=== PATIENT | male | born 1955 | race Hispanic/Latino ===

== ENCOUNTER 2016-12-08 20:17 | Inpatient (IN) | payer MEDICARE ==
[2016-12-08] MEDS ORDERED: NACL 0.9% 1000 ML 1,000 ML ONE (20:19)
[2016-12-08] MEDS ORDERED: NACL 0.9% 1000 ML 1,000 ML IV ONE (20:24)
--- NOTE | 2016-12-08 20:28 | Emergency Department Report ---
- General Stated complaint: LOW BLOOD PRESSURE Time Seen by Provider: 12/08/16 20:24 - History of Present Illness Initial comments: This is a 61-year-old gentleman who is coming from a skilled nursing house due to weakness/failure to thrive. EMS have limited history. They do indicate the patient has history of HIV. He is in a semi-controlled environment where his even assistance with medications and meals are provided. According to staff, the patient has not presented for [facility] for the past 2 days. The patient himself describes feeling not well. He denies fevers denies any specific pains. He states he feels very weak. There is a history of report of some type of psychiatric disorder as well with this gentleman. ED caveat for poor historian and difficulties obtaining history in general. - Related Data Home Medications Medication Instructions Recorded Confirmed Last Taken Abacavir Sulfate [Ziagen ORAL LIQ] 600 mg PO BID 12/08/16 12/08/16 12/08/16 Aspirin EC [Aspirin Enteric Coated 81 mg PO QDAY 12/08/16 12/08/16 12/08/16 TAB] Dapsone 100 mg PO DAILY 12/08/16 12/08/16 12/08/16 Darunavir Ethanolate [Prezista] 600 mg PO BID 12/08/16 12/08/16 12/08/16 Folic Acid [Folvite] 1 mg PO QDAY 12/08/16 12/08/16 12/08/16 Multivitamin Tab [Multiple Vitamin 1 each PO QDAY 12/08/16 12/08/16 12/08/16 TAB (Theragran)] Nevirapine [Viramune] 200 mg PO BID 12/08/16 12/08/16 12/08/16 Olanzapine [OLANZapine] 10 mg PO HS 12/08/16 12/08/16 12/08/16 Ritonavir [Norvir] 100 mg PO BID 12/08/16 12/08/16 12/08/16 Venlafaxine HCl [Venlafaxine HCl 150 mg PO DAILY 12/08/16 12/08/16 12/08/16 ER] hydrOXYZINE PAMOATE [hydrOXYzine 25 mg PO HS 12/08/16 12/08/16 12/08/16 Pamoate] Allergies Allergy/AdvReac Type Severity Reaction Status Date / Time No Known Allergies Allergy Unverified 12/08/16 21:24 ED Review of Systems ROS: Stated complaint: LOW BLOOD PRESSURE Other details as noted in HPI Comment: Unobtainable due to pts medical conditions Constitutional: weakness. denies: fever Respiratory: denies: cough, shortness of breath Cardiovascular: denies: chest pain Gastrointestinal: denies: abdominal pain, nausea, vomiting ED Past Medical Hx - Medications Home Medications: Home Medications Medication Instructions Recorded Confirmed Last Taken Type Abacavir Sulfate [Ziagen ORAL LIQ] 600 mg PO BID 12/08/16 12/08/16 12/08/16 History Aspirin EC [Aspirin Enteric Coated 81 mg PO QDAY 12/08/16 12/08/16 12/08/16 History TAB] Dapsone 100 mg PO DAILY 12/08/16 12/08/16 12/08/16 History Darunavir Ethanolate [Prezista] 600 mg PO BID 12/08/16 12/08/16 12/08/16 History Folic Acid [Folvite] 1 mg PO QDAY 12/08/16 12/08/16 12/08/16 History Multivitamin Tab [Multiple Vitamin 1 each PO QDAY 12/08/16 12/08/16 12/08/16 History TAB (Theragran)] Nevirapine [Viramune] 200 mg PO BID 12/08/16 12/08/16 12/08/16 History Olanzapine [OLANZapine] 10 mg PO HS 12/08/16 12/08/16 12/08/16 History Ritonavir [Norvir] 100 mg PO BID 12/08/16 12/08/16 12/08/16 History Venlafaxine HCl [Venlafaxine HCl 150 mg PO DAILY 12/08/16 12/08/16 12/08/16 History ER] hydrOXYZINE PAMOATE [hydrOXYzine 25 mg PO HS 12/08/16 12/08/16 12/08/16 History Pamoate] ED Physical Exam - General General appearance: other (very frail and cachectic appearing. He does look around and give very soft answers to some questions. Others he just accidentally does not understand the question.) - Head Head exam: Present: atraumatic, normocephalic - Eye Eye exam: Present: EOMI, other. Absent: scleral icterus (2 mm pupils equal bilaterally minimally reactive. Sunken eyes and general. No scleral icterus noted.) - ENT ENT exam: Present: mucous membranes dry, other (no posterior pharyngeal lesions appreciated. No other oral lesions noted.) - Neck Neck exam: Present: normal inspection. Absent: tenderness, meningismus, lymphadenopathy - Respiratory Respiratory exam: Present: normal lung sounds bilaterally. Absent: wheezes, rales, rhonchi - Cardiovascular Cardiovascular Exam: Present: regular rate, normal rhythm. Absent: tachycardia - GI/Abdominal GI/Abdominal exam: Present: soft. Absent: tenderness, guarding - Extremities Exam Extremities exam: Present: other (palpable bilateral radial pulses and distal pedal pulses. They are somewhat thready.). Absent: tenderness, pedal edema - Back Exam Back exam: Absent: tenderness, CVA tenderness (R), CVA tenderness (L) - Neurological Exam Neurological exam: Present: other (patient does move all 4 extremities spontaneously. He does turn his head he does respond to some questions. His answers are very brief. He does appear to have some decreased alertness though he is awake and looking around.) - Psychiatric Psychiatric exam: Present: other (very flat. Difficult to assess in general due to minimal verbal response) - Skin Skin exam: Present: warm, dry, intact. Absent: rash ED Course Vital Signs 12/08/16 12/08/16 12/08/16 20:16 20:26 20:30 Temperature 97.9 F Pulse Rate 70 68 Respiratory 26 H 16 19 Rate Blood Pressure 72/40 68/35 O2 Sat by Pulse 100 100 Oximetry 12/08/16 12/08/16 12/08/16 20:45 21:01 21:15 Temperature Pulse Rate 66 64 Respiratory 17 26 H 11 L Rate Blood Pressure 81/30 81/30 86/51 O2 Sat by Pulse 99 92 Oximetry 12/08/16 12/08/16 12/08/16 21:27 21:30 21:45 Temperature 89.1 F L Pulse Rate 65 65 Respiratory 16 17 Rate Blood Pressure 92/52 88/48 O2 Sat by Pulse Oximetry 12/08/16 12/08/16 12/08/16 22:00 22:15 22:30 Temperature Pulse Rate 65 67 67 Respiratory 17 12 15 Rate Blood Pressure 97/47 94/51 98/54 O2 Sat by Pulse Oximetry 12/08/16 12/08/16 12/08/16 22:45 23:00 23:15 Temperature 89.8 F L Pulse Rate 68 73 74 Respiratory 15 14 14 Rate Blood Pressure 81/51 90/59 94/58 O2 Sat by Pulse Oximetry 12/08/16 23:30 Temperature Pulse Rate 76 Respiratory 15 Rate Blood Pressure 97/58 O2 Sat by Pulse Oximetry - Reevaluation(s) Reevaluation #1: 12/08/16 20:33 ECG in 2020 with sinus rhythm at 65 bpm with a normal DC. QRS is slightly prolonged 106 ms. There is cyanosis specific ST changes noted and rather diffuse fashion fashion. These are slight change from prior ECG from 2010. Not consistent with STEMI. Reevaluation #2: 12/09/16 01:09 Patient was given a total of 3 L normal saline. His pressure did improve somewhat with this with her range of 90s over 50. He continued to be normal heart rate throughout his time here. He was noted to be hypothermic. He did have a bear hugger placed on him. Decision was made to place central line please see procedure note. This was done for concern for possible need for pressors. Ultimately I did not start him on pressors however. Chest x-ray was noted to be negative. Urinalysis did demonstrate significant infection. In addition patient was noted to have significant renal failure with uremia as well. He is noted to have a very low COU which I suspect is consistent with uremia. His lactate is not that impressive. White blood cell count was noted to be quite elevated. Patient is again presenting consistent with septic shock. I am hopeful that being on antibiotics and judicious hydration will get the kidneys working again and the patient will then be able to diurese well and retained kidney function. I did speak with the hospitalist regarding admission. In addition to speak with the range examiner. Nephrology did suggest they give the patient bicarbonate here 2 A and then placed on bicarbonate drip. This has been ordered. The mentation standpoint, the patient has had increased and improved mentation during his time here. He subjectively reports feeling much improved as he's been warmed up as well as receiving IV fluids. He is appropriate in his comments in general. He is still somewhat of a poor historian regarding his healthcare but it does appear that he has been very compliant with the medications that have been prescribed to him. Reevaluation #3: 12/09/16 01:13 NB: Hemoglobin level was noted to be somewhat lonely 0.9. I am concerned with all the fluid hydration at the patient's hemoglobin is drop significantly with dilution. Will follow. - Central Line Placement Right IJ Consent Obtained: verbal consent Time Out Performed: Yes Patient Placed on Monitor/Pulse Ox: Yes Prep: mask, gown, gloves Central Line Prep: Chlorhexidine scrub Local Anesthesia Used: Lidocaine 1% Amount of Anesthesia Used (mls): 3 Ultrasound Used for Placement: Yes Central Line Lumen Inserted: triple Bloods Obtained for Lab: No Central Line Position: good blood return, all ports aspirated, flus, sutured in place with 2-0 Dressing Applied: Tegaderm Post Procedure X-Ray: tip of catheter in good p Patient Tolerated Procedure: well Complications: none ED Medical Decision Making - Lab Data Result diagrams: 12/08/16 20:51 12/08/16 23:04 - Radiology Data interpreted by me: Chest x-ray with hyperinflation but otherwise negative for acute pathology. Critical Care Time: Yes Critical care time in (mins) excluding proc time.: 35 Critical care attestation.: If time is entered above; I have spent that time in minutes in the direct care of this critically ill patient, excluding procedure time. ED Disposition Clinical Impression: Septic shock, Azotemia, Dehydration, Adult failure to thrive, Renal failure, Hypernatremia UTI (urinary tract infection) Qualifiers: Urinary tract infection type: acute cystitis Hematuria presence: without hematuria Qualified Code(s): N30.00 - Acute cystitis without hematuria Disposition: OP ADMITTED IP TO THIS HOSP Is pt being admited?: Yes Does the pt Need Aspirin: No Condition: Stable Time of Disposition: 21:53
[2016-12-08 20:59] LABS: Basophils % (Auto) 0.1 % (0.0-1.8); Hemoglobin 8.9 gm/dl (11.8-15.2); Mean Corpuscular HGB Conc 31 % (32-34); Mean Corpuscular Hemoglobin 31 pg (28-32); Mean Corpuscular Volume 100 fl (84-94); Platelet Count 194 K/mm3 (140-440); Red Blood Count 2.91 M/mm3 (3.65-5.03); Red Cell Distribution Width 17.7 % (13.2-15.2); White Blood Count 17.3 K/mm3 (4.5-11.0)
[2016-12-08] MEDS ORDERED: ROCEPHIN/NS 1 GM/50 ML 1 GM/50 ML BAG IV ONE (21:16)
[2016-12-08 21:25] LABS: Albumin 3.2 g/dL (3.9-5); Albumin/Globulin Ratio 1.1 %; Calcium 7.4 mg/dL (8.4-10.2); Chloride 126.2 mmol/L (98-107); Glucose 107 mg/dL (75-100); Potassium 5.2 mmol/L (3.6-5.0); Sodium 158 mmol/L (137-145); Total Protein 6.2 g/dL (6.3-8.2)
[2016-12-08] MEDS ORDERED: ROCEPHIN 1,000 MG in NACL 0.9% 50 ML IV ONE (21:28)
[2016-12-08 21:30] LABS: Anion Gap 31 mmol/L
[2016-12-08 21:37] LABS: Bacteria,Urine 4+ /HPF (Negative); Mucus,Urine 3+ /HPF
[2016-12-08 21:43] LABS: Bilirubin,Urine Negative (Negative); Blood,Urine Large (Negative); Ketones,Urine Negative (Negative); Leukocyte Esterase,Urine Large (Negative); Nitrite,Urine Positive (Negative); Protein,Urine >500 mg/dL (Negative); RBC,Urine > 182.0 /HPF (0.0-6.0); Urobilinogen,Urine < 2.0 mg/dL (<2.0); WBC,Urine > 182.0 /HPF (0.0-6.0)
[2016-12-08 21:48] LABS: Alanine Aminotransferase < 5 units/L (7-56); BUN/Creatinine Ratio 18.44; Blood Urea Nitrogen 190 mg/dL (9-20); Carbon Dioxide 6 mmol/L (22-30)
[2016-12-08] MEDS ORDERED: ROCEPHIN 1,000 MG in NACL 0.9% 50 ML IV NR (22:00)
[2016-12-08] MEDS ORDERED: SODIUM BICARBONATE IV ONE ×2 (22:04→22:07)
[2016-12-08 22:17] LABS: Alkaline Phosphatase 120 units/L (35-129)
[2016-12-08] MEDS ORDERED: TYLENOL PO PRN (22:31)
--- NOTE | 2016-12-08 22:35 | History and Physical Report ---
History of Present Illness Date of examination: 12/08/16 History of present illness: 61 year old man with history of HIV, psych problems per EMS report was brought to the emergency room because he had not eaten in 2 days. the patient is unable to give a history. PAST SURGICAL HISTORY: Unknown SOCIAL HISTORY:Smokes, unknown alcohol or drugs FAMILY HISTORY: Unknown Medications and Allergies Allergies Allergy/AdvReac Type Severity Reaction Status Date / Time No Known Allergies Allergy Unverified 12/08/16 21:24 Home Medications Medication Instructions Recorded Confirmed Last Taken Type Abacavir Sulfate [Ziagen ORAL LIQ] 600 mg PO BID 12/08/16 12/08/16 12/08/16 History Aspirin EC [Aspirin Enteric Coated 81 mg PO QDAY 12/08/16 12/08/16 12/08/16 History TAB] Dapsone 100 mg PO DAILY 12/08/16 12/08/16 12/08/16 History Darunavir Ethanolate [Prezista] 600 mg PO BID 12/08/16 12/08/16 12/08/16 History Folic Acid [Folvite] 1 mg PO QDAY 12/08/16 12/08/16 12/08/16 History Multivitamin Tab [Multiple Vitamin 1 each PO QDAY 12/08/16 12/08/16 12/08/16 History TAB (Theragran)] Nevirapine [Viramune] 200 mg PO BID 12/08/16 12/08/16 12/08/16 History Olanzapine [OLANZapine] 10 mg PO HS 12/08/16 12/08/16 12/08/16 History Ritonavir [Norvir] 100 mg PO BID 12/08/16 12/08/16 12/08/16 History Venlafaxine HCl [Venlafaxine HCl 150 mg PO DAILY 12/08/16 12/08/16 12/08/16 History ER] hydrOXYZINE PAMOATE [hydrOXYzine 25 mg PO HS 12/08/16 12/08/16 12/08/16 History Pamoate] Active Meds: Active Medications Sodium Bicarbonate 150 meq/ (Sterile Water) 1,150 mls @ 150 mls/hr IV DIRECT JOSE Stop: 12/09/16 06:39 Exam - Physical Exam Narrative exam: Gen. appearance: Patient lying in bed, no apparent distress HEENT: Normocephalic, atraumatic, pupils equally round and reactive to light, extraocular movement intact, and no sclericterus,. No JVD or thyromegaly or nodule,neck supple, no carotid bruit ,mucous membranes very dry, no exudate or erythema Heart: S1, S2, regular rate and rhythm Lungs: Clear to auscultation bilaterally, breathing comfortable Abdomen: Positive bowel sounds, nontender, nondistended, no organomegaly Extremity: No edema, cyanosis, clubbing Skin: No rash, nodules, warm, dry Neuro: lethargic, moves all four extremities - Constitutional Vitals: Temp Pulse Resp BP Pulse Ox 89.1 F L 64 11 L 86/51 92 12/08/16 21:27 12/08/16 21:15 12/08/16 21:15 12/08/16 21:15 12/08/16 21:01 Results - Labs CBC & Chem 7: 12/08/16 20:51 12/08/16 23:04 Labs: Abnormal lab results 12/08/16 12/08/16 12/08/16 Range/Units 20:51 20:51 20:51 WBC 17.3 H (4.5-11.0) K/mm3 RBC 2.91 L (3.65-5.03) M/mm3 Hgb 8.9 L (11.8-15.2) gm/dl Hct 29.0 L (35.5-45.6) % MCV 100 H (84-94) fl MCHC 31 L (32-34) % RDW 17.7 H (13.2-15.2) % Lymph % (Auto) 7.6 L (13.4-35.0) % Seg Neutrophils % 88.1 H (40.0-70.0) % Seg Neutrophils # 15.3 H (1.8-7.7) K/mm3 Sodium 158 H (137-145) mmol/L Potassium 5.2 H (3.6-5.0) mmol/L Chloride 126.2 H (98-107) mmol/L Carbon Dioxide 6 L* (22-30) mmol/L BUN 190 H (9-20) mg/dL Creatinine 10.3 H (0.8-1.5) mg/dL Glucose 107 H (75-100) mg/dL Calcium 7.4 L (8.4-10.2) mg/dL Magnesium 2.70 H (1.7-2.3) mg/dL ALT < 5 L (7-56) units/L Total Protein 6.2 L (6.3-8.2) g/dL Albumin 3.2 L (3.9-5) g/dL Urine pH (5.0-7.0) Urine Blood (Negative) Urine WBC (Auto) (0.0-6.0) /HPF U Epithel Cells (Auto) (0-13.0) /HPF /02/17 Range/Units 21:12 WBC (4.5-11.0) K/mm3 RBC (3.65-5.03) M/mm3 Hgb (11.8-15.2) gm/dl Hct (35.5-45.6) % MCV (84-94) fl MCHC (32-34) % RDW (13.2-15.2) % Lymph % (Auto) (13.4-35.0) % Seg Neutrophils % (40.0-70.0) % Seg Neutrophils # (1.8-7.7) K/mm3 Sodium (137-145) mmol/L Potassium (3.6-5.0) mmol/L Chloride (98-107) mmol/L Carbon Dioxide (22-30) mmol/L BUN (9-20) mg/dL Creatinine (0.8-1.5) mg/dL Glucose (75-100) mg/dL Calcium (8.4-10.2) mg/dL Magnesium (1.7-2.3) mg/dL ALT (7-56) units/L Total Protein (6.3-8.2) g/dL Albumin (3.9-5) g/dL Urine pH 8.0 H (5.0-7.0) Urine Blood Large A (Negative) Urine WBC (Auto) > 182.0 H (0.0-6.0) /HPF U Epithel Cells (Auto) 14.0 H (0-13.0) /HPF - Imaging and Cardiology EKG: image reviewed Chest x-ray: image reviewed Assessment and Plan Septic shock UTI Acute renal failure Hyponatremia Metabolic acidosis Hyperkalemia Underlying psychiatric problem HIV Admit to medicine Start IV fluid, IV Zosyn, follow blood culture and urine culture Obtain CAT scan of the head, abdomen and pelvis, consult renal Monitor sodium level, consult critical care Continue bicarbonate drip Start DVT prophylaxis
[2016-12-08] MEDS ORDERED: SODIUM BICARBONATE 150 MEQ in STERILE WATER 1,000 ML IV SCH (23:00)
[2016-12-08] MEDS ORDERED: NACL 0.45% 1000 ML 1,000 ML IV SCH (23:00)
[2016-12-08] MEDS ORDERED: NACL 0.9% 1000 ML 1,000 ML IV SCH (23:00)
[2016-12-08 23:35] LABS: Creatine Kinase MB 9.4 ng/mL (0.0-4.0)
[2016-12-08 23:40] LABS: Calcium 7.3 mg/dL (8.4-10.2); Chloride 125.5 mmol/L (98-107); Potassium 5.1 mmol/L (3.6-5.0)
[2016-12-08 23:50] LABS: BUN/Creatinine Ratio 18.76
[2016-12-09] MEDS ORDERED: NACL 0.45% 1000 ML 500 ML IV SCH (00:06)
--- NOTE | 2016-12-09 00:25 | Cat Scan Report ---
FINAL REPORT PROCEDURE: CT HEAD/BRAIN WO CON TECHNIQUE: Computerized tomography of the head was performed without contrast material. HISTORY: lethargy COMPARISON: No prior studies are available for comparison. FINDINGS: Skull and scalp: Normal. Paranasal sinuses: Minimal opacification of the ethmoid sinuses. Ventricles and subarachnoid spaces: Normal. Cerebrum: No evidence of hemorrhage, acute infarction or mass. Periventricular deep white matter change identified in the right upper parietal deep white matter. Mild atrophy.. Cerebellum and brainstem: No evidence of hemorrhage, acute infarction or mass. Vasculature: Normal. Comments: None. IMPRESSION: There is no evidence of an acute intracranial process. Minimal atrophy and minimal periventricular deep white matter changes noted.
--- NOTE | 2016-12-09 00:33 | Cat Scan Report ---
FINAL REPORT PROCEDURE: CT ABDOMEN PELVIS WO CON TECHNIQUE: Computerized axial tomography of the abdomen and pelvis was performed without intravenous contrast. This study is performed without intravascular contrast material and its sensitivity for abdominal and pelvic pathology, including neoplasms, inflammation, abscess, free fluid, thrombosis, arterial dissection and infarction, is reduced compared with a contrast enhanced study. HISTORY: arf COMPARISON: No prior studies are available for comparison. FINDINGS: Visualized lower thorax: No significant abnormality. Liver: Normal size and attenuation. Spleen: Normal size and attenuation. Gallbladder and biliary system: Normal. Pancreas: Normal. Adrenals: Normal. Kidneys: The left kidney is atrophic. No hydronephrosis is seen. There are numerous small areas of hypoattenuation identified in the renal cortex, small cysts are suspected. This is not fully evaluated on this noncontrast study. There are few small 1 millimeter calcifications in the lateral right renal cortex. Further evaluation with ultrasound may be appropriate. A contrasted CT exam would also be of benefit.. GI tract: The stomach is normal. The small bowel has a normal caliber. No obstruction, ileus or enteritis. The cecum, appendix region and colon are normal. Moderate fecal debris throughout the colon including the rectum.. Lymph nodes and mesentery: Normal. Vasculature: Normal. Bladder: There is a Elaine catheter within the urinary bladder.. Reproductive organs: Normal. Peritoneum: No free fluid. Musculoskeletal structures: No evidence of an acute fracture. There is a cystic region of the lateral right iliac bone just above the right acetabulum.. Other: None. IMPRESSION: Atrophic left kidney. Multiple small areas of hypoattenuation identified throughout the renal cortex bilaterally, multiple cysts are suspected. There are few small 1 millimeter calcifications in the lateral right renal cortex. This is not fully evaluated on this study. Further evaluation with ultrasound would be of benefit. A contrast enhanced CT would also be of benefit. No evidence of intestinal obstruction. Moderate fecal debris throughout the colon. There is a Elaine catheter within the urinary bladder..
[2016-12-09] MEDS: D5/0.45NS 1,000 ML IV SCH ×2 (00:46→08:08)
[2016-12-09] MEDS: ZOSYN/NS 2.25 GM/50ML 2.25 GM/50 ML BAG IV SCH ×4 (01:38→23:23)
[2016-12-09 05:07] LABS: Fractional Sodium Excretion 65.4
[2016-12-09 06:33] LABS: Basophils % (Auto) 0.2 % (0.0-1.8); Eosinophils % (Auto) 0.3 % (0.0-4.3); Hemoglobin 7.1 gm/dl (11.8-15.2); Mean Corpuscular HGB Conc 34 % (32-34); Mean Corpuscular Hemoglobin 32 pg (28-32); Platelet Count 149 K/mm3 (140-440); Red Blood Count 2.24 M/mm3 (3.65-5.03); Red Cell Distribution Width 16.1 % (13.2-15.2); White Blood Count 10.7 K/mm3 (4.5-11.0)
[2016-12-09 06:35] LABS: Calcium 6.1 mg/dL (8.4-10.2); Chloride 120.8 mmol/L (98-107); Potassium 3.6 mmol/L (3.6-5.0)
[2016-12-09 06:37] LABS: Creatine Kinase MB 9.7 ng/mL (0.0-4.0)
[2016-12-09 06:45] LABS: BUN/Creatinine Ratio 19.65
[2016-12-09 06:55] LABS: Mean Corpuscular Volume 95 fl (84-94)
[2016-12-09 06:56] LABS: Hematocrit 23.9 % (35.5-45.6)
--- NOTE | 2016-12-09 08:17 | XRay Report ---
AP CHEST: 12/08/16 21:37 CLINICAL: Central line insertion. COMPARISON: 20:55 FINDINGS: Since the prior exam, a right IJ catheter has been inserted and the catheter tip is in the distal SVC. The lungs are normally expanded and relatively clear.No pneumothorax. Normal heart and pulmonary vessels. IMPRESSION: Satisfactory line placement. No pneumothorax.
--- NOTE | 2016-12-09 08:18 | XRay Report ---
AP CHEST :12/08/16 20:17:00 CLINICAL: Difficulty breathing. COMPARISON:06/15/11 FINDINGS: Normal heart and pulmonary vasculature. The lungs are normally expanded and clear. The bones and soft tissues are normal. IMPRESSION: Normal.
--- NOTE | 2016-12-09 09:19 | Consultation ---
History of Present Illness - Reason for Consult Consult date: 12/09/16 acute renal failure - History of Present Illness Patient is a poor historian. Mr. Funez is a 61yo with HIV who presents to the ED with generalized malaise and nausea ongoing for 1-2 weeks. Per records, he was brought to the ED due to poor po intake for 3 days. Mr. Funez denies vomiting, diarrhea, dysuria, SOB. He denies pain. Past History Past Medical History: HIV/AIDS Family history: no significant family history Medications and Allergies Allergies Allergy/AdvReac Type Severity Reaction Status Date / Time No Known Allergies Allergy Unverified 12/08/16 21:24 Home Medications Medication Instructions Recorded Confirmed Last Taken Type Abacavir Sulfate [Ziagen ORAL LIQ] 600 mg PO BID 12/08/16 12/08/16 12/08/16 History Aspirin EC [Aspirin Enteric Coated 81 mg PO QDAY 12/08/16 12/08/16 12/08/16 History TAB] Dapsone 100 mg PO DAILY 12/08/16 12/08/16 12/08/16 History Darunavir Ethanolate [Prezista] 600 mg PO BID 12/08/16 12/08/16 12/08/16 History Folic Acid [Folvite] 1 mg PO QDAY 12/08/16 12/08/16 12/08/16 History Multivitamin Tab [Multiple Vitamin 1 each PO QDAY 12/08/16 12/08/16 12/08/16 History TAB (Theragran)] Nevirapine [Viramune] 200 mg PO BID 12/08/16 12/08/16 12/08/16 History Olanzapine [OLANZapine] 10 mg PO HS 12/08/16 12/08/16 12/08/16 History Ritonavir [Norvir] 100 mg PO BID 12/08/16 12/08/16 12/08/16 History Venlafaxine HCl [Venlafaxine HCl 150 mg PO DAILY 12/08/16 12/08/16 12/08/16 History ER] hydrOXYZINE PAMOATE [hydrOXYzine 25 mg PO HS 12/08/16 12/08/16 12/08/16 History Pamoate] Active Meds: Active Medications Acetaminophen (Tylenol) 650 mg PO Q4H PRN PRN Reason: Pain MILD(1-3)/Fever >100.5/LUDWIG Enoxaparin Sodium (Lovenox) 30 mg SUB-Q QDAY JOSE Piperacillin Sod/Tazobactam Sod (Zosyn/Ns 2.25 Gm/50ml) 2.25 gm in 50 mls @ 100 mls/hr IV Q8H JOSE PRN Reason: Protocol Last Admin: 12/09/16 08:11 Dose: 100 mls/hr Dextrose/Sodium Chloride (D5ns 0.2%) 1,000 mls @ 75 mls/hr IV DIRECT JOSE Ondansetron HCl (Zofran) 4 mg IV Q4H PRN PRN Reason: N/V unrelieved by Reglan Review of Systems Constitutional: malaise, no fever, no chills, no sweats Cardiovascular: no chest pain, no shortness of breath Respiratory: no cough, no shortness of breath Gastrointestinal: nausea, no abdominal pain, no vomiting, no diarrhea Genitourinary Male: no dysuria, no hematuria Integumentary: no rash Neurological: no weakness, no headaches Exam - Vital Signs Vital signs: Vital Signs Resp Pulse Ox 26 H 100 12/08/16 20:16 12/08/16 20:16 - General Appearance General appearance: chronically ill, frail EENT: ATNC Respiratory: Clear to Ascultation Heart: regular, S1S2 Gastrointestinal: Present: normal. Absent: distended, masses Integumentary: no rash Musculoskeletal: Present: other (no edema) Psychiatric: cooperative Results - Lab Results 12/09/16 06:00 12/09/16 06:00 Most recent lab results Calcium 6.1 mg/dL (8.4-10.2) L D 12/09/16 06:00 Magnesium 2.70 mg/dL (1.7-2.3) H 12/08/16 20:51 Urine Creatinine 15.7 mg/dL (0.1-20.0) 12/08/16 21:12 Urine Sodium 159 mEq/L 12/08/16 21:12 Assessment and Plan Assessment: Acute kidney injury secondary to ATN Metabolic acidosis HIV Septic shock - ?urosepsis UTI Hyponatremia Metabolic acidosis Hyperkalemia Hx of psychiatric disorder Plan: Continue IVF for volume repletion - will change IVF to bicarb (75meq) in D5W Await pending serologies Renal u/s reviewed Strict I/O No acute indication for dialysis at present, but renal prognosis is guarded Empiric abx per primary team Avoid potential nephrotoxins Dose medications for renal function
--- NOTE | 2016-12-09 09:59 | Admit Criteria Form ---
Admission Criteria Documentation: SEVERE SEPSIS Clinical Indications for Admission to Inpatient Care (Place 'X' for any and all applicable criteria): Hospital admission is needed for appropriate care of the patient because of ANY ONE of the following: [XI. Hemodynamic instability indicated by ANY ONE of the following(1)(2)(3)(4 )(5): [X]a. Vital sign abnormality not readily corrected by appropriate treatment within 12 to 24 hours indicated by ANY ONE of the following: []i) Tachycardia that persists despite appropriate treatment [X]ii) Hypotension that persists despite appropriate treatment []iii) Orthostatic vital sign changes that persist despite appropriate treatment [X]b. Vital sign abnormality that is severe indicated by ANY ONE of the following: []i. Inadequate perfusion indicated by ANY ONE of the following: []1) Lactic acidosis (greater than 2 mmol/L) []2) New abnormal capillary refill (greater than 3 seconds) []3) Reduced urine output []4) New altered mental status []5) Myocardial Ischemia [X]ii. Mean arterial pressure [A] less than 60 mm Hg []iii. Mean arterial pressure[A] less than 70 mm Hg after 30 minutes of appropriate treatment (eg, fluid resuscitation) []iv. Sustained heart rate greater than 120 beats per minute in adult []v. IV inotropic or vasopressor medication required to maintain adequate blood pressure or perfusion [X]II. Systemic or infectious condition causing severe symptoms or findings not responsive to emergency or observation care treatment (as appropriate) indicated by ANY ONE of the following: []a. Cardiac arrhythmias of immediate concern(1)(2)(3) []b. Severe endocrine disorder (eg, thyrotoxicosis, adrenal insufficiency)(4)(5) []c. Seizures (eg, new or recurrent)(6) [X]d. New-onset end organ failure or dysfunction as indicated by ANY ONE of the following: []i. Acute unexplained hypoxemia (eg, not from lung infection or chronic disease)(7)(8)(9) []ii. Acute renal failure as indicated by new onset of ANY ONE of the following(10)(11)(12)(13)(14): [X]1) 3-fold rise in serum creatinine from baseline []2) Serum creatinine greater than 4 mg/dL (354 micromoles/L) with acute rise greater than 0.5 mg/dL (44.2 micromoles/L) []3) Reduction of more than 75% in estimated glomerular filtration rate from baseline. []4) Estimated glomerular filtration rate less than 35 mL/min/1.73m2 ( 0.59 mL/sec/1.73m2) in child younger than 18 years. []5) Cessation of urine output indicated by ALL of the following: []A. Adequate volume status []B. Inadequate urine output as indicated by ANY ONE of the following: []a. Urine output less than 0.3 mL/kg/hr for 24 hours []b. Anuria (urine output less than 0.1 mL/kg/hr) for 12 hours []iii. Acute mental status changes(15) []iv. Acute hepatic failure (eg, plasma bilirubin greater than 4 mg/ dL (68 micromoles/L), new INR greater than 2.0)(16)(17) []e. Unmanageable nausea and vomiting(18) []f. New-onset or uncontrolled central diabetes insipidus(19)(20) []g. Clinically significant dehydration(18)(21) []h. Hypoglycemia(22) []i. Acidosis (pH less than 7.35) or alkalosis (pH greater than 7.45)( 22)(23) []j. Toxic drug level that indicates need for specific monitoring or treatment(24)(25) [X]k. Severe electrolyte abnormalities indicated by ALL of the following (1)(2)(3): [X]i. Electrolytes and associated findings are not as expected for patient baseline or acceptable treatment effects. []ii. Severe abnormalities indicated by ANY ONE of the following: []1) Sodium less than 130 mEq/L (mmol/L) (new) []2) Sodium less than 135 mEq/L (mmol/L) with ANY ONE of the following: []A. Uncorrectable (to near normal or chronic baseline) after trial of outpatient and emergency treatment []B. Altered mental status []C. Seizures []D. Severe medical etiology requiring inpatient management (eg , heart failure, hypovolemia) [X]3) Sodium greater than 155 mEq/L (mmol/L) []4) Sodium greater than 150 mEq/L (mmol/L) with ANY ONE of the following: []A. Uncorrectable (to near normal or chronic baseline) with outpatient and emergency treatment []B. Altered mental status []C. Seizures []D. Severe medical etiology (eg, hypovolemia, diabetes insipidus) []5) Potassium less than 2.5 mEq/L (mmol/L) despite outpatient and emergency treatment []6) Potassium less than 3 mEq/L (mmol/L) with ANY ONE of the following : []A. Weakness []B. Cardiac abnormality (eg, arrhythmia, conduction disturbance ) []C. Cardiac ischemia []D. Ileus []E. Ongoing medical cause requiring inpatient management (eg, acute renal wasting or SIADH) []F. Other severe symptoms []7) Potassium greater than 6.5 mEq/L (mmol/L) []8) Potassium greater than 5 mEq/L (mmol/L) with ANY ONE of the following: []A. Uncorrectable (to near normal or chronic baseline) with outpatient and emergency treatment []B. Severe ECG findings[A] []C. Acute worsening of renal failure (creatinine greater than 2.5 mg/dL (221 micromoles/L) or significant elevation for age and size) []D. Severe weakness []E. Severe medical etiology (eg, hemolysis, infection, drug overdose) []9) Calcium less than 7 mg/dL (1.75 mmol/L) despite outpatient and emergency treatment(5) []10) Calcium less than 8 mg/dL (2 mmol/L) with significant symptoms or findings (eg, altered mental status, muscle spasms, seizures, breathing difficulty, cardiac abnormality (eg, arrhythmia or conduction disturbance))(5) []11) Calcium greater than 14 mg/dL (3.5 mmol/L)(5) []12) Calcium greater than 12 mg/dL (3 mmol/L) with ANY ONE of the following(5): []A. Uncorrectable (to near normal or chronic baseline) with outpatient and emergency treatment []B. Significant dehydration or hypovolemia as indicated by ALL of the following(3)(6)(7): []a. Not resolved with initial treatments []b. Clinically significant dehydration as indicated by ANY ONE of the following: [](1) Vomiting refractory to outpatient treatment (ie, precluding oral rehydration) [](2) Inability to drink [](3) Hypernatremia or other electrolyte abnormality unable to be corrected with outpatient and emergency treatment [](4) Failure to remain hydrated with outpatient therapy [](5) Reduced urine output [](6) Hypotension [](7) Serious cause for dehydration requiring acute hospitalization ( eg, bowel obstruction, increased intracranial pressure, infectious cause) [](8) Child with ANY ONE of the following(8): [](i) Severe abdominal tenderness [](ii) Adequate care not available at home [](iii) Severe dehydration (greater than 9% loss of body weight) []C. Significant symptoms or findings (eg, altered mental status , cardiac abnormality (eg, arrhythmia, conduction disturbance), malignant etiology requiring inpatient treatment) []13) Phosphorus less than 1 mg/dL (0.32 mmol/L) []14) Phosphorus less than 1.5 mg/dL (0.48 mmol/L) with ANY ONE of the following: []A. Patient unresponsive to outpatient and emergency treatment []B. Significant symptoms or findings (eg, weakness, altered mental status, breathing difficulty, seizures, rhabdomyolysis) []15) Phosphorus greater than 10 mg/dL (3.2 mmol/L) []16) Phosphorus greater than 4.5 mg/dL (1.45 mmol/L) (new) with ANY ONE of the following: []A. Severe medical etiology (eg, crush injury, acute renal failure) []B. Associated hypocalcemia with significant findings (eg, neurologic symptoms, altered mental status, muscle spasms, seizures, breathing difficulty, cardiac abnormality (eg, arrhythmia, conduction disturbance)) []16) Magnesium less than 1 mg/dL (0.41 mmol/L) []17) Magnesium less than 1.5 mg/dL (0.62 mmol/L) with ANY ONE of the following: []A. Patient unresponsive to outpatient and emergency treatment []B. Associated hypocalcemia with significant findings (eg, altered mental status, muscle spasms, seizures, breathing difficulty, cardiac abnormality (eg, arrhythmia, conduction disturbance)) []C. Associated hypokalemia (potassium less than 3 mEq/L (mmol/L )) with risk of arrhythmia []18) Magnesium greater than 4 mEq/L (2 mmol/L) []19) Magnesium greater than 2.5 mEq/L (1.25 mmol/L) with significant symptoms or findings (eg, weakness, altered mental status, cardiac abnormality (eg, arrhythmia, conduction disturbance), breathing difficulty, severe medical etiology (eg, renal failure, hypovolemia)) []20) Uric acid greater than 20 mg/dL (1190 micromoles/L)(9) []21) Uric acid greater than 8 mg/dL (476 micromoles/L) with significant symptoms or findings of tumor lysis syndrome (eg, creatinine greater than 1.5 times upper limit of normal, cardiac abnormality (eg , arrhythmia, conduction disturbance), seizure)(9) []III. High fever or other high-risk infection situation as indicated by ANY ONE of the following(26)(27)(28): []a. Outpatient and observation care antimicrobial treatment unavailable, not effective, or not appropriate []b. Documented bacteremia []c. Temperature greater than 104.9 degrees F (40.5 degrees C) (oral) []d. Temperature greater than 103.1 degrees F (39.5 degrees C) (oral) or less than 96.8 degrees F (36 degrees C) (rectal) that does not respond to emergency treatment and observation care []IV. High-risk febrile neutropenia[A] as indicated by ANY ONE of the following(29)(30)(31)(32): []a. Profound neutropenia[B] anticipated to extend for more than 7 days []b. Hemodynamic instability []c. Hypoxemia []d. Tachypnea []e. Altered mental status []f. New-onset abdominal pain []g. New-onset vomiting or diarrhea []h. Oral or gastrointestinal mucositis that interferes with swallowing or causes severe diarrhea []i. Focal infection (eg, cellulitis, pneumonia, central line or catheter infection, perirectal abscess) []j. Renal insufficiency (eg, GFR of less than 30 mL/min/1.73m2 (0.5 mL/sec /1.73m2)). []k. Severe liver dysfunction (transaminase levels greater than 5 times normal) []l. Platelet count less than 50,000/mm3 (50 x109/L)(33) []m. Leukemia or lymphoma induction therapy []n. Leukemia not in complete remission or with evidence of disease progression []o. Bone marrow transplant patient []p. Alemtuzumab being used for therapy []q. [employer] Association for Supportive Care in Cancer (MASCC) Risk Index score of less than 21[C](33)(35). []V. Isolation required (eg, tuberculosis that requires isolation, Ebola infection)[D](36)(37)(38)(39)(40) []. Gangrene that requires treatment beyond emergency or observation level care(41)(42) []VII. Antitoxin administration and ongoing observation required (eg, tetanus, botulism)(43)(44) []. Suspected infection with rapid progression or severe symptoms as indicated by ANY ONE of the following(45): []a. Streptococcal or staphylococcal toxic shock(46) []b. Diphtheria(47) []c. Hantavirus(48) []d. Severe acute respiratory syndrome(8)(49) []e. Anthrax(50) []f. Ebola[D](36)(37)(38) []g. Necrotizing soft tissue infection(41)(42) []h. Plague(50) []i. Other suspected infection that requires care beyond emergency or observation level care []VII. Severe adverse drug or systemic toxin reaction as indicated by ANY ONE of the following(24): []a. Serotonin syndrome(51)(52) []b. Neuroleptic malignant syndrome(51)(52) []c. Cholinergic syndrome with severe symptoms (eg, bronchorrhea, weakness , mental status changes, seizures)(53) []d. Anticholinergic syndrome []e. Sympathetic syndrome with severe symptoms (eg, seizures, mental status changes, cardiac dysrhythmias) []f. Other severe adverse drug or systemic toxin reaction that remains after emergency or observation level care (as appropriate) []VIII. Allergic reaction with severe symptoms (not responsive to emergency or observation care treatment as appropriate), including ANY ONE of the following(54): []a. Airway edema (pharyngeal, epiglottic, or laryngeal edema) []b. Stridor []c. Respiratory failure []d. Bronchospasm []e. Hypotension []IX. Environmental emergency (not responsive to emergency or observation care treatment as appropriate) as indicated by ANY ONE of the following(55)(56): []a. Hyperthermia []b. Heat stroke []c. Heat exhaustion []d. Hypothermia (temperature less than 95 degrees F (35 degrees C) rectal) (57) []e. Electrocution(58) []X. Complications of transplanted organ (ie, not covered elsewhere)[E] indicated by ANY ONE of the following(59): []a. Acute graft rejection (or graft vs. host disease)[F] requiring inpatient management (eg, intravenous immunosuppression)(60)(61)(62)( 63) []b. Acute failure of transplanted organ necessitating inpatient care (eg, cannot be managed in other setting) []c. Infection requiring inpatient management (eg, Hemodynamic instability, need for intravenous antimicrobial treatment)(64)(65) []d. Other complication of transplanted organ requiring inpatient management []XI. Systemic or Infectious Condition condition, symptom, or finding for which emergency and observation care have failed or are not considered appropriate. See General Criteria: Observation Care, General Admission Criteria or Pediatric General Admission Criteria guideline as appropriate. (Contents from SEVERE SEPSIS and SYSTEMIC OR INFECTIOUS CONDITION clinical indications for admission to inpatient care have been integrated in this form) The original [facility] content created by [facility] has been revised. The portions of the content which have been revised are identified through the use of italic text or in bold and [facility] has neither reviewed nor approved the modified material. All other unmodified content is copyright [facility]. Please see references footnoted in the original [facility] edition 2016 Admission Criteria Met: Yes
[2016-12-09] MEDS ORDERED: D5NS 0.2% 1,000 ML IV SCH (10:00)
[2016-12-09] MEDS ORDERED: LOVENOX SUB-Q SCH (10:00)
--- NOTE | 2016-12-09 10:01 | Ultrasound Report ---
ULTRASOUND RENAL INDICATION: KELI. COMPARISON: 03/17/2011 renal ultrasound [address] a CT from earlier today. FINDINGS: Renal sonography suggests mild increased renal cortical echogenicity. Grossly preserved contours. RIGHT KIDNEY measures 11.7 x 6 x 6.1 cm with cortical thickness of 1.8 cm. Mild collecting system fullness in the upper and lower poles may be present without significant hydronephrosis. AP renal pelvis diameter is approximately 1.7 cm, image 13. An approximately 1 cm renal cortical cyst inferiorly may also be noted, image 8. LEFT KIDNEY evaluation limited due to patient refusing to complete the exam and grossly estimated at 10.6 cm length with cortical thickness of 1.5 cm. URINARY BLADDER decompressed around a Elaine catheter and suboptimally assessed, though suggests diffuse exaggerated wall thickness as also noted on CT. CONCLUSION: 1. Diffuse urinary bladder wall thickening again suspected, possibly cystitis versus hypertrophy or suboptimal distention. Slight right renal collecting system fullness may also be present without significant hydronephrosis however. 2. Underlying medical renal disease and small right renal cyst also noted. Left renal evaluation suboptimal, though noted atrophic with multiple renal cortical hypodensities/cysts on recent CT. Thank you for the opportunity to participate in this patient's care.
--- NOTE | 2016-12-09 11:18 | Consultation ---
History of Present Illness Consult date: 12/09/16 Requesting physician: NATHANAEL SCHERER Reason for consult: other (sepsis) History of present illness: Mr. Teixeira is a 61-year-old man with HIV infection, unknown stage, psychiatric hstory as per EMS, presenting with poor oral intake and evidence of renal dysfunction.The patient is unable to give a history. He was hypothermic and hypotensive on admission, but afebrile. CT head showed no acute findings. CT abdomen/ pelvis showed urinary bladder wall thickness and medical renal disease. Blood cultures were sent to rule out an underlying acute infection and results are in progress. He is Zosyn empirically. Mr. Teixeira follows at the [facility] in [place] for HIV management. He does not know the name of his provider. He does not recall his most recent CD4 count , but knows that his viral load was initally 200,000 copies/mL in 2001, but is now undetectable. Pulmoanry Critical Care consult was placed for management of sepsis and critical illness during his ICU stay. He is unable to give a history. History was obtained on review of medical records. Past History Past Medical History: HIV/AIDS Family history: no significant family history Medications and Allergies Allergies Allergy/AdvReac Type Severity Reaction Status Date / Time No Known Allergies Allergy Unverified 12/08/16 21:24 Home Medications Medication Instructions Recorded Confirmed Last Taken Type Abacavir Sulfate [Ziagen ORAL LIQ] 600 mg PO BID 12/08/16 12/08/16 12/08/16 History Aspirin EC [Aspirin Enteric Coated 81 mg PO QDAY 12/08/16 12/08/16 12/08/16 History TAB] Dapsone 100 mg PO DAILY 12/08/16 12/08/16 12/08/16 History Darunavir Ethanolate [Prezista] 600 mg PO BID 12/08/16 12/08/16 12/08/16 History Folic Acid [Folvite] 1 mg PO QDAY 12/08/16 12/08/16 12/08/16 History Multivitamin Tab [Multiple Vitamin 1 each PO QDAY 12/08/16 12/08/16 12/08/16 History TAB (Theragran)] Nevirapine [Viramune] 200 mg PO BID 12/08/16 12/08/16 12/08/16 History Olanzapine [OLANZapine] 10 mg PO HS 12/08/16 12/08/16 12/08/16 History Ritonavir [Norvir] 100 mg PO BID 12/08/16 12/08/16 12/08/16 History Venlafaxine HCl [Venlafaxine HCl 150 mg PO DAILY 12/08/16 12/08/16 12/08/16 History ER] hydrOXYZINE PAMOATE [hydrOXYzine 25 mg PO HS 12/08/16 12/08/16 12/08/16 History Pamoate] Active Meds: Active Medications Acetaminophen (Tylenol) 650 mg PO Q4H PRN PRN Reason: Pain MILD(1-3)/Fever >100.5/LUDWIG Enoxaparin Sodium (Lovenox) 30 mg SUB-Q QDAY [facility] Last Admin: 12/09/16 10:17 Dose: 30 mg Piperacillin Sod/Tazobactam Sod (Zosyn/Ns 2.25 Gm/50ml) 2.25 gm in 50 mls @ 100 mls/hr IV Q8H JOSE PRN Reason: Protocol Last Admin: 12/09/16 08:11 Dose: 100 mls/hr Sodium Bicarbonate 75 meq/ (Dextrose) 1,075 mls @ 100 mls/hr IV DIRECT JOSE Ondansetron HCl (Zofran) 4 mg IV Q4H PRN PRN Reason: N/V unrelieved by Chris Physical Examination Vital signs: Vital Signs Resp Pulse Ox 26 H 100 12/08/16 20:16 12/08/16 20:16 Gen. appearance: Patient lying in bed, no apparent distress HEENT: Normocephalic, atraumatic, pupils equally round and reactive to light, extraocular movement intact, and no sclericterus,. No JVD or thyromegaly or nodule,neck supple, no carotid bruit ,mucous membranes very dry, no exudate or erythema Heart: S1, S2, regular rate and rhythm Lungs: Clear to auscultation bilaterally, breathing comfortable Abdomen: Positive bowel sounds, nontender, nondistended, no organomegaly Extremity: No edema, cyanosis, clubbing Skin: No rash, nodules, warm, dry Neuro: lethargic, moves all four extremities Results - Laboratory Findings CBC and BMP: 12/09/16 06:00 12/09/16 13:56 Abnormal lab findings: Abnormal Labs 12/08/16 12/08/16 12/08/16 23:04 23:04 23:04 RBC Hgb Hct MCV RDW Lymph % (Auto) Lymph # Seg Neutrophils % Seg Neutrophils # Sodium 161 H* 161 H* Potassium 5.1 H Chloride 125.5 H Carbon Dioxide 11 L BUN 182 H Creatinine 9.7 H 9.7 H Glucose POC Glucose Calcium 7.3 L Total Creatine Kinase 275 H CK-MB (CK-2) 9.4 H 12/09/16 12/09/16 12/09/16 06:00 06:00 06:00 RBC 2.24 L Hgb 7.1 L Hct 23.9 L MCV 95 H D RDW 16.1 H Lymph % (Auto) 10.7 L Lymph # 1.1 L Seg Neutrophils % 85.2 H Seg Neutrophils # 9.1 H Sodium 156 H Potassium Chloride 120.8 H Carbon Dioxide 13 L BUN 169 H Creatinine 8.6 H Glucose 118 H POC Glucose Calcium 6.1 L D Total Creatine Kinase 298 H CK-MB (CK-2) 9.7 H 12/09/16 07:25 RBC Hgb Hct MCV RDW Lymph % (Auto) Lymph # Seg Neutrophils % Seg Neutrophils # Sodium Potassium Chloride Carbon Dioxide BUN Creatinine Glucose POC Glucose 120 H Calcium Total Creatine Kinase CK-MB (CK-2) - Diagnostic Findings Chest x-ray: report reviewed Assessment and Plan - Patient Problems (1) Sepsis associated hypotension Current Visit: Yes Status: Acute Plan to address problem: Continue with IVF- responded to fluid bolus. If needed start norepinephrine to keep MAP>65 Continue with warming measures Start VTE prophylaxis Continue with empiric antibiotics while awaiting cltures. Initiate nutrition Monitor hemodynamics closely (2) Acute renal failure Current Visit: Yes Status: Acute Qualifiers: Acute renal failure type: A Plan to address problem: IVF Get renal ultrasound scan Avoid nephrotoxic agents and adjust al medications for CrCl (3) Hypernatremia Current Visit: Yes Status: Acute Plan to address problem: Free water replacement Monitor closely for neurological complications of hypernatremia (4) HIV (human immunodeficiency virus infection) Current Visit: Yes Status: Acute Plan to address problem: As per ID consult/recommendations (5) Hypothermia Current Visit: Yes Status: Acute Qualifiers: Encounter type: E Plan to address problem: Warming measures. Monitor hemodynamics closely as his core temperature improves (6) Adult failure to thrive Current Visit: Yes Status: Acute Plan to address problem: Nutrition consult ED Critical Care Note - Critical Care Note Total Time (mins): 45 Comments: Critically ill at the risk of hemodynamic compromise and decompensation
[2016-12-09] MEDS: SODIUM BICARBONATE 75 MEQ in D5W 1,000 ML IV SCH ×2 (12:38→23:38)
[2016-12-09 14:32] LABS: Chloride 121.3 mmol/L (98-107); Potassium 3.5 mmol/L (3.6-5.0)
[2016-12-09 16:19] LABS: Calcium 6.3 mg/dL (8.4-10.2)
[2016-12-09 16:33] LABS: BUN/Creatinine Ratio 19.52
--- NOTE | 2016-12-09 17:06 | Progress Note ---
Assessment and Plan 61 year old man with history of HIV, psych problems per EMS report was brought to the emergency room because he had not eaten in 2 days. In the ER na was noted to be 166, low BP and UTI. Septic shock - improved with Iv fluid - likely due to UTI UTI - cint current abx - follow cx Acute renal failure - likely KELI on CKD from ATN - CT abdomen and US notable for CKD - monitor renal function - nephrology following - no plan for HD now Hypernatremia - improving with hypotonic solution - monitor with frequent BMP Metabolic acidosis - cont bicarbonate drip Hyperkalemia - from declining renal function - s/p kayexalate, cont to monitor Underlying psychiatric problem - no overt issue now, consult psych when medically stable HIV - consult ID for further recommendation Anemia - monitor H and h - likely from CKD The high probability of a clinically significant, sudden or life threatening deterioration of the system(s) required my full and direct attention, intervention and personal management. The aggregate critical care time was [32] minutes. This time is in addition to time spent performing reported procedures but includes the following: [x] Data Review and interpretation [x] Patient assessment and monitoring of vital signs [x] Documentation [x] Medication orders and management Subjective Date of service: 12/09/16 Interval history: Patient seen and examined. Medical records and medication list reviewed. No acute event overnight noted by the RN. Patient denies any chest pain or difficulty breathing. Discussed plan of care at bedside with patient. Objective - Exam Narrative Exam: GENERAL: WM lying on bed appeared to be in no discomfort. HEENT: Normocephalic. Atraumatic. No conjunctival congestion or icterus. Patient has moist mucous membranes. NECK: Supple. Trachea midline. CHEST/LUNGS: Clear to auscultated bilaterally, breathing nonlabored. No wheezes crackles or rhonchi. HEART/CARDIOVASCULAR: Regular in rate and rhythm. S1 and S2 positive. ABDOMEN: Abdomen is soft, nontender. Patient has normal bowel sounds. SKIN: There is no rash. Warm and dry. NEURO: No focal motor deficit. Follows command. MUSCULOSKELETAL: No joint effusion or tenderness. EXTRIMITY: No edema, no cyanosis or clubbing. PSYCH: Cooperative. - Constitutional Vitals: Vital Signs - 12hr 12/09/16 12/09/16 12/09/16 05:11 05:21 05:31 Pulse Rate 96 H 97 H 99 H Pulse Rate [ Apical] Pulse Rate [ From Monitor] Respiratory 22 20 20 Rate Blood Pressure 94/55 94/55 94/55 O2 Sat by Pulse 99 99 98 Oximetry 12/09/16 12/09/16 12/09/16 05:41 05:51 06:00 Pulse Rate 99 H 99 H 96 H Pulse Rate [ Apical] Pulse Rate [ From Monitor] Respiratory 19 22 18 Rate Blood Pressure 94/55 94/55 103/58 O2 Sat by Pulse 99 99 99 Oximetry 12/09/16 12/09/16 12/09/16 06:11 06:21 06:31 Pulse Rate 101 H 94 H 93 H Pulse Rate [ Apical] Pulse Rate [ From Monitor] Respiratory 19 19 20 Rate Blood Pressure 103/58 103/58 103/58 O2 Sat by Pulse 100 99 99 Oximetry 12/09/16 12/09/16 12/09/16 06:40 06:51 07:00 Pulse Rate 90 91 H 87 Pulse Rate [ Apical] Pulse Rate [ From Monitor] Respiratory 18 19 19 Rate Blood Pressure 103/58 103/58 97/59 O2 Sat by Pulse 99 99 Oximetry 12/09/16 12/09/16 12/09/16 07:11 07:20 07:25 Pulse Rate 89 86 Pulse Rate [ 89 Apical] Pulse Rate [ 89 From Monitor] Respiratory 15 18 21 Rate Blood Pressure 97/59 97/59 O2 Sat by Pulse 99 99 99 Oximetry 12/09/16 12/09/16 12/09/16 07:31 07:41 07:51 Pulse Rate 95 H 83 92 H Pulse Rate [ Apical] Pulse Rate [ From Monitor] Respiratory 22 18 17 Rate Blood Pressure 97/59 O2 Sat by Pulse 99 99 99 Oximetry 12/09/16 12/09/16 12/09/16 08:00 08:11 08:21 Pulse Rate 87 83 83 Pulse Rate [ Apical] Pulse Rate [ From Monitor] Respiratory 20 18 18 Rate Blood Pressure 104/59 104/59 104/59 O2 Sat by Pulse 99 99 99 Oximetry 12/09/16 12/09/16 12/09/16 08:31 08:41 08:51 Pulse Rate 84 82 87 Pulse Rate [ Apical] Pulse Rate [ From Monitor] Respiratory 18 18 18 Rate Blood Pressure 104/59 104/59 104/59 O2 Sat by Pulse 99 99 Oximetry 12/09/16 12/09/16 12/09/16 09:00 09:01 09:11 Pulse Rate 85 80 Pulse Rate [ Apical] Pulse Rate [ From Monitor] Respiratory 12 16 16 Rate Blood Pressure 104/59 101/62 O2 Sat by Pulse 100 99 Oximetry 12/09/16 12/09/16 12/09/16 09:21 09:31 09:41 Pulse Rate 84 91 H 84 Pulse Rate [ Apical] Pulse Rate [ From Monitor] Respiratory 17 19 14 Rate Blood Pressure 101/62 101/62 101/62 O2 Sat by Pulse 99 100 100 Oximetry 12/09/16 12/09/16 12/09/16 09:51 10:00 10:11 Pulse Rate 79 79 76 Pulse Rate [ Apical] Pulse Rate [ From Monitor] Respiratory 17 16 19 Rate Blood Pressure 101/62 99/60 99/60 O2 Sat by Pulse 99 99 Oximetry 12/09/16 12/09/16 12/09/16 10:21 10:31 10:35 Pulse Rate 84 80 Pulse Rate [ Apical] Pulse Rate [ From Monitor] Respiratory 16 16 Rate Blood Pressure 99/60 99/60 O2 Sat by Pulse 99 99 99 Oximetry 12/09/16 12/09/16 12/09/16 10:41 10:51 11:00 Pulse Rate 78 77 83 Pulse Rate [ 77 Apical] Pulse Rate [ 77 From Monitor] Respiratory 15 17 17 Rate Blood Pressure 99/60 99/60 106/62 O2 Sat by Pulse 100 100 99 Oximetry 12/09/16 12/09/16 12/09/16 11:11 11:21 11:31 Pulse Rate 81 79 78 Pulse Rate [ Apical] Pulse Rate [ From Monitor] Respiratory 16 16 15 Rate Blood Pressure 106/62 106/62 106/62 O2 Sat by Pulse 99 99 99 Oximetry 12/09/16 12/09/16 12/09/16 11:41 11:51 12:00 Pulse Rate 78 78 77 Pulse Rate [ Apical] Pulse Rate [ From Monitor] Respiratory 18 17 16 Rate Blood Pressure 106/62 106/62 111/58 O2 Sat by Pulse 99 99 99 Oximetry 12/09/16 12/09/16 12/09/16 12:11 12:21 12:31 Pulse Rate 80 77 78 Pulse Rate [ Apical] Pulse Rate [ From Monitor] Respiratory 19 15 17 Rate Blood Pressure 111/58 111/58 111/58 O2 Sat by Pulse 99 99 99 Oximetry 12/09/16 12/09/16 12/09/16 12:41 12:51 13:00 Pulse Rate 78 83 78 Pulse Rate [ Apical] Pulse Rate [ From Monitor] Respiratory 16 16 19 Rate Blood Pressure 111/58 111/58 92/56 O2 Sat by Pulse 99 99 100 Oximetry - Labs CBC & Chem 7: 12/09/16 06:00 12/09/16 13:56 Labs: Abnormal lab results 12/08/16 12/08/16 12/08/16 Range/Units 23:04 23:04 23:04 RBC (3.65-5.03) M/mm3 Hgb (11.8-15.2) gm/dl Hct (35.5-45.6) % MCV (84-94) fl RDW (13.2-15.2) % Lymph % (Auto) (13.4-35.0) % Lymph # (1.2-5.4) K/mm3 Seg Neutrophils % (40.0-70.0) % Seg Neutrophils # (1.8-7.7) K/mm3 Sodium 161 H* 161 H* (137-145) mmol/L Potassium 5.1 H (3.6-5.0) mmol/L Chloride 125.5 H (98-107) mmol/L Carbon Dioxide 11 L (22-30) mmol/L BUN 182 H (9-20) mg/dL Creatinine 9.7 H 9.7 H (0.8-1.5) mg/dL Glucose (75-100) mg/dL POC Glucose (70-105) Calcium 7.3 L (8.4-10.2) mg/dL Total Creatine Kinase 275 H (55-170) units/L CK-MB (CK-2) 9.4 H (0.0-4.0) ng/mL 12/09/16 12/09/16 12/09/16 Range/Units 06:00 06:00 06:00 RBC 2.24 L (3.65-5.03) M/mm3 Hgb 7.1 L (11.8-15.2) gm/dl Hct 23.9 L (35.5-45.6) % MCV 95 H D (84-94) fl RDW 16.1 H (13.2-15.2) % Lymph % (Auto) 10.7 L (13.4-35.0) % Lymph # 1.1 L (1.2-5.4) K/mm3 Seg Neutrophils % 85.2 H (40.0-70.0) % Seg Neutrophils # 9.1 H (1.8-7.7) K/mm3 Sodium 156 H (137-145) mmol/L Potassium (3.6-5.0) mmol/L Chloride 120.8 H (98-107) mmol/L Carbon Dioxide 13 L (22-30) mmol/L BUN 169 H (9-20) mg/dL Creatinine 8.6 H (0.8-1.5) mg/dL Glucose 118 H (75-100) mg/dL POC Glucose (70-105) Calcium 6.1 L D (8.4-10.2) mg/dL Total Creatine Kinase 298 H (55-170) units/L CK-MB (CK-2) 9.7 H (0.0-4.0) ng/mL 12/09/16 12/09/16 12/09/16 Range/Units 07:25 11:56 13:56 RBC (3.65-5.03) M/mm3 Hgb (11.8-15.2) gm/dl Hct (35.5-45.6) % MCV (84-94) fl RDW (13.2-15.2) % Lymph % (Auto) (13.4-35.0) % Lymph # (1.2-5.4) K/mm3 Seg Neutrophils % (40.0-70.0) % Seg Neutrophils # (1.8-7.7) K/mm3 Sodium 157 H (137-145) mmol/L Potassium 3.5 L (3.6-5.0) mmol/L Chloride 121.3 H (98-107) mmol/L Carbon Dioxide 15 L (22-30) mmol/L BUN 164 H (9-20) mg/dL Creatinine 8.4 H (0.8-1.5) mg/dL Glucose 107 H (75-100) mg/dL POC Glucose 120 H 106 H (70-105) Calcium 6.3 L (8.4-10.2) mg/dL Total Creatine Kinase (55-170) units/L CK-MB (CK-2) (0.0-4.0) ng/mL
--- NOTE | 2016-12-09 19:55 | Consultation ---
History of Present Illness - Reason for Consult Consult date: 12/09/16 - History of Present Illness Mr. Teixeira is a 61-year-old man with HIV infection, unknown stage, presenting with poor oral intake and evidence of renal dysfunction. He was hypotensive on admission, but afebrile. CT head showed no acute findings. CT abd/ pelv showed urinary bladder wall thickness and medical renal disease. Blood cultures were sent to rule out an underlying acute infection and results are in progress. He is Zosyn empirically. ID is consulted for assistance managing the patient's HIV infection. Mr. Teixeira follows at the [facility] in [place] for HIV management. He does not know the name of his provider. He does not recall his most recent CD4 count , but knows that his viral load was initally 200,000 copies/mL in 2001, but is now undetectable. Past History Past Medical History: HIV/AIDS Social history: Family history: no significant family history Medications and Allergies Allergies Allergy/AdvReac Type Severity Reaction Status Date / Time No Known Allergies Allergy Unverified 12/08/16 21:24 Home Medications Medication Instructions Recorded Confirmed Last Taken Type Abacavir Sulfate [Ziagen ORAL LIQ] 600 mg PO BID 12/08/16 12/08/16 12/08/16 History Aspirin EC [Aspirin Enteric Coated 81 mg PO QDAY 12/08/16 12/08/16 12/08/16 History TAB] Dapsone 100 mg PO DAILY 12/08/16 12/08/16 12/08/16 History Darunavir Ethanolate [Prezista] 600 mg PO BID 12/08/16 12/08/16 12/08/16 History Folic Acid [Folvite] 1 mg PO QDAY 12/08/16 12/08/16 12/08/16 History Multivitamin Tab [Multiple Vitamin 1 each PO QDAY 12/08/16 12/08/16 12/08/16 History TAB (Theragran)] Nevirapine [Viramune] 200 mg PO BID 12/08/16 12/08/16 12/08/16 History Olanzapine [OLANZapine] 10 mg PO HS 12/08/16 12/08/16 12/08/16 History Ritonavir [Norvir] 100 mg PO BID 12/08/16 12/08/16 12/08/16 History Venlafaxine HCl [Venlafaxine HCl 150 mg PO DAILY 12/08/16 12/08/16 12/08/16 History ER] hydrOXYZINE PAMOATE [hydrOXYzine 25 mg PO HS 12/08/16 12/08/16 12/08/16 History Pamoate] Active Meds: Active Medications Acetaminophen (Tylenol) 650 mg PO Q4H PRN PRN Reason: Pain MILD(1-3)/Fever >100.5/LUDWIG Piperacillin Sod/Tazobactam Sod (Zosyn/Ns 2.25 Gm/50ml) 2.25 gm in 50 mls @ 100 mls/hr IV Q8H JOSE PRN Reason: Protocol Last Admin: 12/09/16 19:20 Dose: 100 mls/hr Sodium Bicarbonate 75 meq/ (Dextrose) 1,075 mls @ 100 mls/hr IV DIRECT [facility] Last Admin: 12/09/16 12:38 Dose: 100 mls/hr Ondansetron HCl (Zofran) 4 mg IV Q4H PRN PRN Reason: N/V unrelieved by Reglan Pantoprazole Sodium (Protonix) 40 mg IV QDAY [facility] Review of Systems Constitutional: chills, anorexia, weakness, no fever Ears, nose, mouth and throat: no nasal congestion, no dysphagia, no sore throat , no odynophagia Respiratory: no cough, no shortness of breath, no congestion Gastrointestinal: no abdominal pain, no nausea, no vomiting, no diarrhea Genitourinary Male: no dysuria Integumentary: no rash Physical Examination - Constitutional Vitals: Vital Signs Temp Pulse Resp BP Pulse Ox 97.4 F L 74 13 116/60 73 L 12/09/16 16:00 12/09/16 18:21 12/09/16 18:21 12/09/16 18:21 12/09/16 17:52 Temperature -Last 24 Hours Temperature 97.4 F Temperature 97.4 F Temperature 98.3 F Temperature 89.8 F General appearance: Present: no acute distress, disheveled, other (thin man) - EENT Eyes: Absent: scleral icterus, conjunctival injection ENT: no thrush - Neck Neck: Present: supple. Absent: cervical LAD - Respiratory Respiratory effort: normal Respiratory: bilateral: CTA, negative: wheezing - Cardiovascular Rhythm: regular Heart Sounds: Present: S1 & S2 - Extremities Extremities: No edema - Abdominal General gastrointestinal: Present: soft, non-distended - Integumentary Integumentary: Absent: jaundice, rash - Psychiatric Psychiatric: appropriate mood/affect - Neurologic Neurologic: CNII-XII intact, no focal deficits Results - Labs CBC & Chem 7: 12/09/16 06:00 12/09/16 13:56 Labs: Abnormal lab results 12/08/16 12/08/16 12/08/16 Range/Units 23:04 23:04 23:04 RBC (3.65-5.03) M/mm3 Hgb (11.8-15.2) gm/dl Hct (35.5-45.6) % MCV (84-94) fl RDW (13.2-15.2) % Lymph % (Auto) (13.4-35.0) % Lymph # (1.2-5.4) K/mm3 Seg Neutrophils % (40.0-70.0) % Seg Neutrophils # (1.8-7.7) K/mm3 Sodium 161 H* 161 H* (137-145) mmol/L Potassium 5.1 H (3.6-5.0) mmol/L Chloride 125.5 H (98-107) mmol/L Carbon Dioxide 11 L (22-30) mmol/L BUN 182 H (9-20) mg/dL Creatinine 9.7 H 9.7 H (0.8-1.5) mg/dL Glucose (75-100) mg/dL POC Glucose (70-105) Calcium 7.3 L (8.4-10.2) mg/dL Total Creatine Kinase 275 H (55-170) units/L CK-MB (CK-2) 9.4 H (0.0-4.0) ng/mL 12/09/16 12/09/16 12/09/16 Range/Units 06:00 06:00 06:00 RBC 2.24 L (3.65-5.03) M/mm3 Hgb 7.1 L (11.8-15.2) gm/dl Hct 23.9 L (35.5-45.6) % MCV 95 H D (84-94) fl RDW 16.1 H (13.2-15.2) % Lymph % (Auto) 10.7 L (13.4-35.0) % Lymph # 1.1 L (1.2-5.4) K/mm3 Seg Neutrophils % 85.2 H (40.0-70.0) % Seg Neutrophils # 9.1 H (1.8-7.7) K/mm3 Sodium 156 H (137-145) mmol/L Potassium (3.6-5.0) mmol/L Chloride 120.8 H (98-107) mmol/L Carbon Dioxide 13 L (22-30) mmol/L BUN 169 H (9-20) mg/dL Creatinine 8.6 H (0.8-1.5) mg/dL Glucose 118 H (75-100) mg/dL POC Glucose (70-105) Calcium 6.1 L D (8.4-10.2) mg/dL Total Creatine Kinase 298 H (55-170) units/L CK-MB (CK-2) 9.7 H (0.0-4.0) ng/mL 12/09/16 12/09/16 12/09/16 Range/Units 07:25 11:56 13:56 RBC (3.65-5.03) M/mm3 Hgb (11.8-15.2) gm/dl Hct (35.5-45.6) % MCV (84-94) fl RDW (13.2-15.2) % Lymph % (Auto) (13.4-35.0) % Lymph # (1.2-5.4) K/mm3 Seg Neutrophils % (40.0-70.0) % Seg Neutrophils # (1.8-7.7) K/mm3 Sodium 157 H (137-145) mmol/L Potassium 3.5 L (3.6-5.0) mmol/L Chloride 121.3 H (98-107) mmol/L Carbon Dioxide 15 L (22-30) mmol/L BUN 164 H (9-20) mg/dL Creatinine 8.4 H (0.8-1.5) mg/dL Glucose 107 H (75-100) mg/dL POC Glucose 120 H 106 H (70-105) Calcium 6.3 L (8.4-10.2) mg/dL Total Creatine Kinase (55-170) units/L CK-MB (CK-2) (0.0-4.0) ng/mL Microbiology 12/08/16 21:59 Peripheral/Venous Blood Culture - Preliminary Culture in Progress 12/08/16 20:51 Peripheral/Venous Blood Culture - Preliminary Culture in Progress - Imaging and Cardiology CT scan - abdomen: report reviewed CT Scan - head: report reviewed CT scan - pelvis: report reviewed Assessment and Plan - Patient Problems (1) HIV (human immunodeficiency virus infection) Current Visit: Yes Status: Acute Plan to address problem: 1. Will obtain CD4 to assess stage of infection and need of OI prophylaxis. 2. Will adjust medication doses of home ARV regimen. No dose adjustments are needed in current regimen for impaired renal function.
[2016-12-09] MEDS: NORVIR PO SCH (23:22)
[2016-12-09] MEDS: ZIAGEN PO SCH (23:22)
[2016-12-09] MEDS: PREZISTA PO SCH (23:23)
[2016-12-09] MEDS: VIRAMUNE PO SCH (23:23)
[2016-12-10 04:36] LABS: Basophils % (Auto) 0.5 % (0.0-1.8); Eosinophils % (Auto) 1.2 % (0.0-4.3); Hematocrit 21.1 % (35.5-45.6); Hemoglobin 6.9 gm/dl (11.8-15.2); Mean Corpuscular HGB Conc 33 % (32-34); Mean Corpuscular Hemoglobin 31 pg (28-32); Mean Corpuscular Volume 94 fl (84-94); Platelet Count 139 K/mm3 (140-440); Red Blood Count 2.26 M/mm3 (3.65-5.03); Red Cell Distribution Width 16.1 % (13.2-15.2); White Blood Count 11.5 K/mm3 (4.5-11.0)
[2016-12-10 04:53] LABS: Chloride 117.8 mmol/L (98-107); Potassium 3.1 mmol/L (3.6-5.0)
[2016-12-10 05:05] LABS: BUN/Creatinine Ratio 18.86
--- NOTE | 2016-12-10 08:39 | Progress Note ---
Assessment and Plan Assessment and plan: 61 year old man with history of HIV, psych problems per EMS report was brought to the emergency room because he had not eaten in 2 days. In the ER na was noted to be 166, low BP and UTI. Septic shock - improved with Iv fluid - due to UTI - cont abx UTI - urine cultures reviewed, growing gram negative rods - continue current abx - follow cx Acute renal failure, nonoliguric -Nephrology input appreciated send acute kidney failure due to combination of ATN and vasomotor nephropathy - Continue IV fluids, improving - nephrology following - no plan for HD now Hypernatremia - improving with isotonic solution, when acidosis is resolved we'll change him to a hypotonic solution - monitor with frequent BMP Metabolic acidosis - cont bicarbonate drip, nephrology input appreciated Hyperkalemia - from declining renal function - s/p kayexalate, cont to monitor Underlying psychiatric problem - no overt issue now, consult psych when medically stable HIV -ID input appreciated, continue retrovirals, follow-up CD4 counts Anemia of chronic disease - monitor H and h, stable - likely from CKD History Interval history: Carloz states that he feels well, denies nausea, denies chest pain, denies shortness of breath. Hospitalist Physical - Physical exam Narrative exam: General: Cachectic, nontoxic appearance HEENT: MMM, EOMI cardiac: S1-S2 heard lungs: clear to auscultation, abdomen: soft, nontender, nondistended bowel sounds positive extremities: no edema clubbing or cyanosis Skin: no rash or lesion Neuro: no focal deficit Psych: appropriate behavior and mood, cognition intact - Constitutional Vitals: Temp Pulse Resp BP Pulse Ox 98.2 F 72 17 98/59 100 12/10/16 08:00 12/10/16 06:11 12/10/16 06:11 12/10/16 06:11 12/10/16 06:11 General appearance: Present: no acute distress, disheveled, other (thin man) Results - Labs CBC & Chem 7: 12/10/16 04:00 12/11/16 08:50 Labs: Laboratory Last Values WBC 11.5 K/mm3 (4.5-11.0) H 12/10/16 04:00 RBC 2.26 M/mm3 (3.65-5.03) L 12/10/16 04:00 Hgb 6.9 gm/dl (11.8-15.2) L 12/10/16 04:00 Hct 21.1 % (35.5-45.6) L 12/10/16 04:00 MCV 94 fl (84-94) 12/10/16 04:00 MCH 31 pg (28-32) 12/10/16 04:00 MCHC 33 % (32-34) 12/10/16 04:00 RDW 16.1 % (13.2-15.2) H 12/10/16 04:00 Plt Count 139 K/mm3 (140-440) L 12/10/16 04:00 Lymph % (Auto) 21.7 % (13.4-35.0) 12/10/16 04:00 Gilliam % (Auto) 6.0 % (0.0-7.3) 12/10/16 04:00 Eos % (Auto) 1.2 % (0.0-4.3) 12/10/16 04:00 Baso % (Auto) 0.5 % (0.0-1.8) 12/10/16 04:00 Lymph # 2.5 K/mm3 (1.2-5.4) 12/10/16 04:00 Gilliam # 0.7 K/mm3 (0.0-0.8) 12/10/16 04:00 Eos # 0.1 K/mm3 (0.0-0.4) 12/10/16 04:00 Baso # 0.1 K/mm3 (0.0-0.1) 12/10/16 04:00 Seg Neutrophils % 70.6 % (40.0-70.0) H 12/10/16 04:00 Seg Neutrophils # 8.1 K/mm3 (1.8-7.7) H 12/10/16 04:00 Sodium 156 mmol/L (137-145) H 12/10/16 04:00 Potassium 3.1 mmol/L (3.6-5.0) L 12/10/16 04:00 Chloride 117.8 mmol/L (98-107) H 12/10/16 04:00 Carbon Dioxide 17 mmol/L (22-30) L 12/10/16 04:00 Anion Gap 24 mmol/L 12/10/16 04:00 BUN 149 mg/dL (9-20) H 12/10/16 04:00 Creatinine 7.9 mg/dL (0.8-1.5) H 12/10/16 04:00 Estimated GFR 7 ml/min 12/10/16 04:00 BUN/Creatinine Ratio 18.86 % 12/10/16 04:00 Glucose 100 mg/dL (75-100) 12/10/16 04:00 POC Glucose 106 (70-105) H 12/09/16 11:56 Lactic Acid 1.90 mmol/L (0.7-2.0) 12/08/16 20:51 Calcium 6.0 mg/dL (8.4-10.2) L 12/10/16 04:00 Magnesium 2.70 mg/dL (1.7-2.3) H 12/08/16 20:51 Total Bilirubin 0.20 mg/dL (0.1-1.2) 12/08/16 20:51 AST 12 units/L (5-40) 12/08/16 20:51 ALT < 5 units/L (7-56) L 12/08/16 20:51 Alkaline Phosphatase 120 units/L (35-129) 12/08/16 20:51 Total Creatine Kinase 298 units/L (55-170) H 12/09/16 06:00 CK-MB (CK-2) 9.7 ng/mL (0.0-4.0) H 12/09/16 06:00 CK-MB (CK-2) Rel Index 3.2 (0-4) 12/09/16 06:00 Troponin T 0.016 ng/mL (0.00-0.029) 12/09/16 06:00 Total Protein 6.2 g/dL (6.3-8.2) L 12/08/16 20:51 Albumin 3.2 g/dL (3.9-5) L 12/08/16 20:51 Albumin/Globulin Ratio 1.1 % 12/08/16 20:51 TSH 1.560 mlU/mL (0.270-4.200) 12/08/16 20:51 Urine Color Straw (Yellow) 12/08/16 21:12 Urine Turbidity Turbid (Clear) 12/08/16 21:12 Urine pH 8.0 (5.0-7.0) H 12/08/16 21:12 Ur Specific [place] 1.010 (1.003-1.030) 12/08/16 21:12 Urine Protein >500 mg/dL (Negative) 12/08/16 21:12 Urine Glucose (UA) Negative mg/dL (Negative) 12/08/16 21:12 Urine Ketones Negative mg/dL (Negative) 12/08/16 21:12 Urine Blood Large (Negative) A 12/08/16 21:12 Urine Nitrite Positive (Negative) 12/08/16 21:12 Ur Reducing Substances Not Reportable 12/08/16 21:12 Urine Bilirubin Negative (Negative) 12/08/16 21:12 Urine Ictotest Not Reportable 12/08/16 21:12 Urine Urobilinogen < 2.0 mg/dL (<2.0) 12/08/16 21:12 Ur Leukocyte Esterase Large (Negative) 12/08/16 21:12 Urine WBC (Auto) > 182.0 /HPF (0.0-6.0) H 12/08/16 21:12 Urine RBC (Auto) > 182.0 /HPF (0.0-6.0) 12/08/16 21:12 U Epithel Cells (Auto) 14.0 /HPF (0-13.0) H 12/08/16 21:12 Urine Bacteria (Auto) 4+ /HPF (Negative) 12/08/16 21:12 Urine Mucus 3+ /HPF 12/08/16 21:12 Urine Creatinine 15.7 mg/dL (0.1-20.0) 12/08/16 21:12 Urine Sodium 159 mEq/L 12/08/16 21:12 Fraction Sodium Excret 65.4 12/08/16 21:12 Hep B Core IgM Ab Non-reactive (NonReactive) 12/08/16 20:51 Hepatitis C Antibody Non-reactive (NonReactive) 12/08/16 20:51
--- NOTE | 2016-12-10 08:56 | Progress Note ---
Assessment and Plan Assessment: * Nonoliguric acute kidney injury secondary to ATN --FeNa>1%, HBV/HCV negative * Metabolic acidosis, improved * HIV * Septic shock - ?urosepsis * UTI * Hypernatremia * Hypocalcemia - corrected Ca 6.6 * Hypokalemia * Hx of psychiatric disorder Plan: * BUN/SCr gradually trending down. Patient w/ good UOP. No acute indication for dialysis at present, but renal prognosis is guarded * Continue IVF for volume repletion - bicarb (75meq) in D5W * Await pending serologies * Replete K and Calcium; will check Mg * Repeat BMP this afternoon * Empiric abx per ID/primary team * Strict I/O * Avoid potential nephrotoxins * Dose medications for renal function Subjective Date of service: 12/10/16 Interval history: Patient has no complaints this am. Objective - Vital Signs Vital signs: Vital Signs - 12hr 12/09/16 12/09/16 12/09/16 21:00 21:07 21:11 Temperature Pulse Rate 66 68 69 Pulse Rate [ From Monitor] Respiratory Rate Blood Pressure 101/67 101/67 101/67 O2 Sat by Pulse 100 100 99 Oximetry 12/09/16 12/09/16 12/09/16 21:21 21:31 21:41 Temperature Pulse Rate 69 68 Pulse Rate [ From Monitor] Respiratory Rate Blood Pressure 101/67 101/67 101/67 O2 Sat by Pulse 100 100 100 Oximetry 12/09/16 12/09/16 12/09/16 21:51 22:00 22:11 Temperature Pulse Rate 97 H 70 Pulse Rate [ From Monitor] Respiratory 15 15 Rate Blood Pressure 101/67 106/62 106/62 O2 Sat by Pulse 100 100 100 Oximetry 12/09/16 12/09/16 12/09/16 22:21 22:31 22:41 Temperature Pulse Rate 70 73 69 Pulse Rate [ From Monitor] Respiratory 14 21 15 Rate Blood Pressure 106/62 106/62 106/62 O2 Sat by Pulse 100 100 100 Oximetry 12/09/16 12/09/16 12/09/16 22:51 23:00 23:11 Temperature Pulse Rate 70 70 71 Pulse Rate [ From Monitor] Respiratory 15 15 15 Rate Blood Pressure 106/62 106/56 106/56 O2 Sat by Pulse 100 100 100 Oximetry 0512/09/16 12/09/16 23:21 23:31 23:41 Temperature Pulse Rate 72 71 72 Pulse Rate [ From Monitor] Respiratory 15 16 17 Rate Blood Pressure 106/56 106/56 106/56 O2 Sat by Pulse 100 100 100 Oximetry 12/09/16 12/10/16 12/10/16 23:51 00:00 00:11 Temperature 97.2 F L Pulse Rate 77 75 73 Pulse Rate [ 70 From Monitor] Respiratory 16 14 15 Rate Blood Pressure 106/56 103/57 103/57 O2 Sat by Pulse 100 100 100 Oximetry 12/10/16 12/10/16 12/10/16 00:21 00:31 00:41 Temperature Pulse Rate 78 75 77 Pulse Rate [ From Monitor] Respiratory 16 15 16 Rate Blood Pressure 103/57 103/57 103/57 O2 Sat by Pulse 100 100 100 Oximetry 12/10/16 12/10/16 12/10/16 00:51 01:00 01:11 Temperature Pulse Rate 80 76 74 Pulse Rate [ From Monitor] Respiratory 17 17 16 Rate Blood Pressure 103/57 103/62 103/62 O2 Sat by Pulse 100 100 100 Oximetry 12/10/16 12/10/16 12/10/16 01:21 01:31 01:41 Temperature Pulse Rate 84 76 76 Pulse Rate [ From Monitor] Respiratory 18 18 17 Rate Blood Pressure 103/62 103/62 103/62 O2 Sat by Pulse 100 100 96 Oximetry 12/10/16 12/10/16 12/10/16 01:51 02:00 02:11 Temperature Pulse Rate 78 72 74 Pulse Rate [ From Monitor] Respiratory 16 12 16 Rate Blood Pressure 103/62 95/55 95/55 O2 Sat by Pulse 100 100 100 Oximetry 12/10/16 12/10/16 12/10/16 02:21 02:31 02:41 Temperature Pulse Rate 73 74 77 Pulse Rate [ From Monitor] Respiratory 14 14 14 Rate Blood Pressure 95/55 95/55 95/55 O2 Sat by Pulse 100 100 100 Oximetry 12/10/16 12/10/16 12/10/16 02:51 03:00 03:11 Temperature Pulse Rate 84 73 71 Pulse Rate [ From Monitor] Respiratory 14 15 14 Rate Blood Pressure 95/55 103/56 103/56 O2 Sat by Pulse 100 100 100 Oximetry 12/10/16 12/10/16 12/10/16 03:21 03:31 03:41 Temperature Pulse Rate 73 81 73 Pulse Rate [ From Monitor] Respiratory 16 14 18 Rate Blood Pressure 103/56 103/56 103/56 O2 Sat by Pulse 100 100 100 Oximetry 12/10/16 12/10/16 12/10/16 03:51 04:00 04:11 Temperature 97.7 F Pulse Rate 75 70 72 Pulse Rate [ 70 From Monitor] Respiratory 16 15 15 Rate Blood Pressure 103/56 100/63 100/63 O2 Sat by Pulse 99 100 100 Oximetry 12/10/16 12/10/16 12/10/16 04:21 04:31 04:41 Temperature Pulse Rate 82 71 71 Pulse Rate [ From Monitor] Respiratory 15 14 15 Rate Blood Pressure 100/63 100/63 100/63 O2 Sat by Pulse 92 100 100 Oximetry 12/10/16 12/10/16 12/10/16 04:51 05:00 05:11 Temperature Pulse Rate 73 73 73 Pulse Rate [ From Monitor] Respiratory 16 17 15 Rate Blood Pressure 100/63 103/62 103/62 O2 Sat by Pulse 100 99 100 Oximetry 12/10/16 12/10/16 12/10/16 05:21 05:31 05:41 Temperature Pulse Rate 73 73 72 Pulse Rate [ From Monitor] Respiratory 17 15 19 Rate Blood Pressure 100/63 100/63 100/63 O2 Sat by Pulse 100 100 100 Oximetry 12/10/16 12/10/16 12/10/16 05:51 06:00 06:11 Temperature Pulse Rate 75 76 72 Pulse Rate [ From Monitor] Respiratory 17 16 17 Rate Blood Pressure 100/63 98/59 98/59 O2 Sat by Pulse 99 100 100 Oximetry 12/10/16 08:00 Temperature 98.2 F Pulse Rate Pulse Rate [ From Monitor] Respiratory Rate Blood Pressure O2 Sat by Pulse Oximetry - General Appearance General appearance: chronically ill, frail EENT: ATNC Respiratory: Present: Clear to Ascultation (anteriorly) Cardiology: regular, S1S2 Gastrointestinal: no tenderness, no distended Integumentary: no rash Musculoskeletal: other (no edema) - Lab 12/10/16 04:00 12/10/16 15:36 Most recent lab results Calcium 6.0 mg/dL (8.4-10.2) L 12/10/16 04:00 Magnesium 2.70 mg/dL (1.7-2.3) H 12/08/16 20:51 Urine Creatinine 15.7 mg/dL (0.1-20.0) 12/08/16 21:12 Urine Sodium 159 mEq/L 12/08/16 21:12
[2016-12-10] MEDS: PREZISTA PO SCH ×2 (09:31→23:55)
[2016-12-10] MEDS: ZIAGEN PO SCH ×2 (09:31→23:55)
[2016-12-10] MEDS: ZOSYN/NS 2.25 GM/50ML 2.25 GM/50 ML BAG IV SCH ×3 (09:31→23:27)
[2016-12-10] MEDS: VIRAMUNE PO SCH ×2 (09:31→23:55)
[2016-12-10] MEDS: NORVIR PO SCH ×2 (09:31→23:55)
[2016-12-10] MEDS: PROTONIX PO SCH (09:31)
[2016-12-10] MEDS ORDERED: K-DUR PO ONE ×2 (10:00→23:15)
--- NOTE | 2016-12-10 10:29 | Progress Note ---
Assessment and Plan - Patient Problems (1) Sepsis associated hypotension Current Visit: Yes Status: Acute Plan to address problem: Continue with IVF- responded to fluid bolus. Continue with empiric antibiotics while awaiting cultures. Monitor hemodynamics closely (2) Acute renal failure Current Visit: Yes Status: Acute Qualifiers: Acute renal failure type: A Plan to address problem: IVF Remains non-oliguric Avoid nephrotoxic agents and adjust al medications for CrCl Renal service is following (3) Hypernatremia Current Visit: Yes Status: Acute Plan to address problem: Free water replacement Monitor closely for neurological complications of hypernatremia (4) HIV (human immunodeficiency virus infection) Current Visit: Yes Status: Acute Plan to address problem: As per ID consult/recommendations (5) Hypothermia Current Visit: Yes Status: Acute Qualifiers: Encounter type: E Plan to address problem: Resolved (6) Adult failure to thrive Current Visit: Yes Status: Acute Plan to address problem: Continue with nutritional supplements. Continue to encourage oral intake (7) Discharge planning issues Current Visit: Yes Status: Acute Plan to address problem: Patient is stable from pulmonary standpoint for transfer to telemetry. Discontinue Elaine catheter and monitor PT/OT to evaluate and treat Subjective Date of service: 12/10/16 Interval history: Inadvertently dislodged his CVC overnight. States he feels well, appetite is much improved. Patient was seen and examined. Vitals, labs, medications, chart reviewed. Objective - Exam Narrative Exam: General: Cachectic, nontoxic appearance HEENT: MMM, EOMI cardiac: S1-S2 heard lungs: clear to auscultation, abdomen: soft, nontender, nondistended bowel sounds positive extremities: no edema clubbing or cyanosis Skin: no rash or lesion Neuro: no focal deficit Psych: appropriate behavior and mood, cognition intact Vital Signs - 12hr 12/09/16 12/09/16 12/09/16 22:31 22:41 22:51 Temperature Pulse Rate 73 69 70 Pulse Rate [ Apical] Pulse Rate [ From Monitor] Respiratory 21 15 15 Rate Blood Pressure 106/62 106/62 106/62 O2 Sat by Pulse 100 100 100 Oximetry 12/09/16 12/09/16 12/09/16 23:00 23:11 23:21 Temperature Pulse Rate 70 71 72 Pulse Rate [ Apical] Pulse Rate [ From Monitor] Respiratory 15 15 15 Rate Blood Pressure 106/56 106/56 106/56 O2 Sat by Pulse 100 100 100 Oximetry 12/09/16 12/09/16 12/09/16 23:31 23:41 23:51 Temperature Pulse Rate 71 72 77 Pulse Rate [ Apical] Pulse Rate [ From Monitor] Respiratory 16 17 16 Rate Blood Pressure 106/56 106/56 106/56 O2 Sat by Pulse 100 100 100 Oximetry 12/10/16 12/10/16 12/10/16 00:00 00:11 00:21 Temperature 97.2 F L Pulse Rate 75 73 78 Pulse Rate [ Apical] Pulse Rate [ 70 From Monitor] Respiratory 14 15 16 Rate Blood Pressure 103/57 103/57 103/57 O2 Sat by Pulse 100 100 100 Oximetry 12/10/16 12/10/16 12/10/16 00:31 00:41 00:51 Temperature Pulse Rate 75 77 80 Pulse Rate [ Apical] Pulse Rate [ From Monitor] Respiratory 15 16 17 Rate Blood Pressure 103/57 103/57 103/57 O2 Sat by Pulse 100 100 100 Oximetry 12/10/16 12/10/16 12/10/16 01:00 01:11 01:21 Temperature Pulse Rate 76 74 84 Pulse Rate [ Apical] Pulse Rate [ From Monitor] Respiratory 17 16 18 Rate Blood Pressure 103/62 103/62 103/62 O2 Sat by Pulse 100 100 100 Oximetry 12/10/16 12/10/16 12/10/16 01:31 01:41 01:51 Temperature Pulse Rate 76 76 78 Pulse Rate [ Apical] Pulse Rate [ From Monitor] Respiratory 18 17 16 Rate Blood Pressure 103/62 103/62 103/62 O2 Sat by Pulse 100 96 100 Oximetry 12/10/16 12/10/16 12/10/16 02:00 02:11 02:21 Temperature Pulse Rate 72 74 73 Pulse Rate [ Apical] Pulse Rate [ From Monitor] Respiratory 12 16 14 Rate Blood Pressure 95/55 95/55 95/55 O2 Sat by Pulse 100 100 100 Oximetry 12/10/16 12/10/16 12/10/16 02:31 02:41 02:51 Temperature Pulse Rate 74 77 84 Pulse Rate [ Apical] Pulse Rate [ From Monitor] Respiratory 14 14 14 Rate Blood Pressure 95/55 95/55 95/55 O2 Sat by Pulse 100 100 100 Oximetry 12/10/16 12/10/16 12/10/16 03:00 03:11 03:21 Temperature Pulse Rate 73 71 73 Pulse Rate [ Apical] Pulse Rate [ From Monitor] Respiratory 15 14 16 Rate Blood Pressure 103/56 103/56 103/56 O2 Sat by Pulse 100 100 100 Oximetry 12/10/16 12/10/16 12/10/16 03:31 03:41 03:51 Temperature Pulse Rate 81 73 75 Pulse Rate [ Apical] Pulse Rate [ From Monitor] Respiratory 14 18 16 Rate Blood Pressure 103/56 103/56 103/56 O2 Sat by Pulse 100 100 99 Oximetry 12/10/16 12/10/16 12/10/16 04:00 04:11 04:21 Temperature 97.7 F Pulse Rate 70 72 82 Pulse Rate [ Apical] Pulse Rate [ 70 From Monitor] Respiratory 15 15 15 Rate Blood Pressure 100/63 100/63 100/63 O2 Sat by Pulse 100 100 92 Oximetry 12/10/16 12/10/16 12/10/16 04:31 04:41 04:51 Temperature Pulse Rate 71 71 73 Pulse Rate [ Apical] Pulse Rate [ From Monitor] Respiratory 14 15 16 Rate Blood Pressure 100/63 100/63 100/63 O2 Sat by Pulse 100 100 100 Oximetry 12/10/16 12/10/16 12/10/16 05:00 05:11 05:21 Temperature Pulse Rate 73 73 73 Pulse Rate [ Apical] Pulse Rate [ From Monitor] Respiratory 17 15 17 Rate Blood Pressure 103/62 103/62 100/63 O2 Sat by Pulse 99 100 100 Oximetry 12/10/16 12/10/16 12/10/16 05:31 05:41 05:51 Temperature Pulse Rate 73 72 75 Pulse Rate [ Apical] Pulse Rate [ From Monitor] Respiratory 15 19 17 Rate Blood Pressure 100/63 100/63 100/63 O2 Sat by Pulse 100 100 99 Oximetry 12/10/16 12/10/16 12/10/16 06:00 06:11 06:21 Temperature Pulse Rate 76 72 74 Pulse Rate [ Apical] Pulse Rate [ From Monitor] Respiratory 16 17 18 Rate Blood Pressure 98/59 98/59 103/62 O2 Sat by Pulse 100 100 100 Oximetry 12/10/16 12/10/16 12/10/16 06:31 06:41 06:51 Temperature Pulse Rate 73 74 82 Pulse Rate [ Apical] Pulse Rate [ From Monitor] Respiratory 33 H 18 19 Rate Blood Pressure 103/62 103/62 103/62 O2 Sat by Pulse 99 100 100 Oximetry 12/10/16 12/10/16 12/10/16 07:00 07:10 07:11 Temperature Pulse Rate 74 74 Pulse Rate [ 74 Apical] Pulse Rate [ 74 From Monitor] Respiratory 40 H 20 25 H Rate Blood Pressure 104/69 104/69 O2 Sat by Pulse 99 100 100 Oximetry 12/10/16 12/10/16 12/10/16 07:21 07:31 07:41 Temperature Pulse Rate 79 71 72 Pulse Rate [ Apical] Pulse Rate [ From Monitor] Respiratory 16 16 17 Rate Blood Pressure 104/69 104/69 104/69 O2 Sat by Pulse 100 100 100 Oximetry 12/10/16 12/10/16 12/10/16 07:51 08:00 08:11 Temperature 98.2 F Pulse Rate 80 82 80 Pulse Rate [ Apical] Pulse Rate [ From Monitor] Respiratory 18 18 14 Rate Blood Pressure 104/69 114/77 114/77 O2 Sat by Pulse 100 100 100 Oximetry 12/10/16 12/10/16 12/10/16 08:21 08:31 08:41 Temperature Pulse Rate 85 94 H 74 Pulse Rate [ Apical] Pulse Rate [ From Monitor] Respiratory 19 19 18 Rate Blood Pressure 114/77 114/77 114/77 O2 Sat by Pulse 100 100 100 Oximetry 12/10/16 12/10/16 08:51 09:00 Temperature Pulse Rate 76 75 Pulse Rate [ Apical] Pulse Rate [ From Monitor] Respiratory 20 17 Rate Blood Pressure 114/77 107/65 O2 Sat by Pulse 100 100 Oximetry CBC and BMP: 12/10/16 04:00 12/11/16 08:50 Abnormal lab findings: Abnormal Labs 12/08/16 12/08/16 12/08/16 23:04 23:04 23:04 WBC RBC Hgb Hct MCV RDW Plt Count Lymph % (Auto) Lymph # Seg Neutrophils % Seg Neutrophils # Sodium 161 H* 161 H* Potassium 5.1 H Chloride 125.5 H Carbon Dioxide 11 L BUN 182 H Creatinine 9.7 H 9.7 H Glucose POC Glucose Calcium 7.3 L Total Creatine Kinase 275 H CK-MB (CK-2) 9.4 H 12/09/16 12/09/16 12/09/16 06:00 06:00 06:00 WBC RBC 2.24 L Hgb 7.1 L Hct 23.9 L MCV 95 H D RDW 16.1 H Plt Count Lymph % (Auto) 10.7 L Lymph # 1.1 L Seg Neutrophils % 85.2 H Seg Neutrophils # 9.1 H Sodium 156 H Potassium Chloride 120.8 H Carbon Dioxide 13 L BUN 169 H Creatinine 8.6 H Glucose 118 H POC Glucose Calcium 6.1 L D Total Creatine Kinase 298 H CK-MB (CK-2) 9.7 H 12/09/16 12/09/16 12/09/16 07:25 11:56 13:56 WBC RBC Hgb Hct MCV RDW Plt Count Lymph % (Auto) Lymph # Seg Neutrophils % Seg Neutrophils # Sodium 157 H Potassium 3.5 L Chloride 121.3 H Carbon Dioxide 15 L BUN 164 H Creatinine 8.4 H Glucose 107 H POC Glucose 120 H 106 H Calcium 6.3 L Total Creatine Kinase CK-MB (CK-2) 12/10/16 12/10/16 04:00 04:00 WBC 11.5 H RBC 2.26 L Hgb 6.9 L Hct 21.1 L MCV RDW 16.1 H Plt Count 139 L Lymph % (Auto) Lymph # Seg Neutrophils % 70.6 H Seg Neutrophils # 8.1 H Sodium 156 H Potassium 3.1 L Chloride 117.8 H Carbon Dioxide 17 L BUN 149 H Creatinine 7.9 H Glucose POC Glucose Calcium 6.0 L Total Creatine Kinase CK-MB (CK-2)
[2016-12-10] MEDS: CALCIUM GLUCONATE 1,000 MG in NACL 0.9% 100 ML IV SCH ×2 (10:50→14:44)
--- NOTE | 2016-12-10 13:59 | Progress Note ---
Assessment and Plan - Patient Problems (1) HIV (human immunodeficiency virus infection) Current Visit: Yes Status: Acute Plan to address problem: 1. Await result of CD4 count. 2. Continue current HAART regimen. (2) UTI (urinary tract infection) Current Visit: Yes Status: Acute Qualifiers: Urinary tract infection type: acute cystitis Hematuria presence: without hematuria Indwelling urinary catheter type: I Encounter type: E Qualified Code(s): N30.00 - Acute cystitis without hematuria Plan to address problem: Continue empiric Zosyn pending identification of Gram negative bacillus. Subjective Date of service: 12/10/16 Interval history: Remains in ICU. Stable with no new clinical issues. Objective - Exam Narrative Exam: wrapped in severeal blankets, head covered - Constitutional Vitals: Vital Signs Temp Pulse Resp BP Pulse Ox 98.1 F 72 18 107/65 76 L 12/10/16 12:00 12/10/16 10:31 12/10/16 10:31 12/10/16 10:31 12/10/16 10:31 Temperature -Last 24 Hours Temperature 98.1 F Temperature 98.2 F Temperature 97.7 F Temperature 97.2 F Temperature 97.4 F General appearance: Present: no acute distress - EENT ENT: no thrush - Respiratory Respiratory: bilateral: CTA, negative: rales, wheezing - Cardiovascular Rhythm: regular Heart Sounds: Present: S1 & S2 Extremities: No edema - Gastrointestinal General gastrointestinal: Present: soft, non-distended - Genitourinary Male genitourinary: normal (normal appearing urine per catheter) - Integumentary Integumentary: no jaundice, no rash - Neurologic Neurologic: no focal deficits - Labs CBC & Chem 7: 12/10/16 04:00 12/10/16 04:00 Labs: Abnormal lab results 12/09/16 12/10/16 12/10/16 Range/Units 13:56 04:00 04:00 WBC 11.5 H (4.5-11.0) K/mm3 RBC 2.26 L (3.65-5.03) M/mm3 Hgb 6.9 L (11.8-15.2) gm/dl Hct 21.1 L (35.5-45.6) % RDW 16.1 H (13.2-15.2) % Plt Count 139 L (140-440) K/mm3 Seg Neutrophils % 70.6 H (40.0-70.0) % Seg Neutrophils # 8.1 H (1.8-7.7) K/mm3 Sodium 157 H 156 H (137-145) mmol/L Potassium 3.5 L 3.1 L (3.6-5.0) mmol/L Chloride 121.3 H 117.8 H (98-107) mmol/L Carbon Dioxide 15 L 17 L (22-30) mmol/L BUN 164 H 149 H (9-20) mg/dL Creatinine 8.4 H 7.9 H (0.8-1.5) mg/dL Glucose 107 H (75-100) mg/dL POC Glucose (70-105) Calcium 6.3 L 6.0 L (8.4-10.2) mg/dL 12/10/16 Range/Units 12:06 WBC (4.5-11.0) K/mm3 RBC (3.65-5.03) M/mm3 Hgb (11.8-15.2) gm/dl Hct (35.5-45.6) % RDW (13.2-15.2) % Plt Count (140-440) K/mm3 Seg Neutrophils % (40.0-70.0) % Seg Neutrophils # (1.8-7.7) K/mm3 Sodium (137-145) mmol/L Potassium (3.6-5.0) mmol/L Chloride (98-107) mmol/L Carbon Dioxide (22-30) mmol/L BUN (9-20) mg/dL Creatinine (0.8-1.5) mg/dL Glucose (75-100) mg/dL POC Glucose 132 H (70-105) Calcium (8.4-10.2) mg/dL Microbiology 12/08/16 21:26 Urine,Catheterized - Indwelling Catheter Urine Culture - Preliminary Gram Negative Richie 12/10/16 07:26 Serum Cryptococcal Antigen - Final 12/08/16 21:59 Peripheral/Venous Blood Culture - Preliminary NO GROWTH AFTER 24 HOURS 12/08/16 20:51 Peripheral/Venous Blood Culture - Preliminary NO GROWTH AFTER 24 HOURS Active Medications Abacavir Sulfate (Ziagen) 300 mg PO BID JOSE Last Admin: 12/10/16 09:31 Dose: 300 mg Acetaminophen (Tylenol) 650 mg PO Q4H PRN PRN Reason: Pain MILD(1-3)/Fever >100.5/LUDWIG Darunavir (Prezista) 600 mg PO BID [facility] Last Admin: 12/10/16 09:31 Dose: 600 mg Piperacillin Sod/Tazobactam Sod (Zosyn/Ns 2.25 Gm/50ml) 2.25 gm in 50 mls @ 100 mls/hr IV Q8H JOSE PRN Reason: Protocol Last Admin: 12/10/16 09:31 Dose: 100 mls/hr Sodium Bicarbonate 75 meq/ (Dextrose) 1,075 mls @ 100 mls/hr IV DIRECT [facility] Last Admin: 12/09/16 23:38 Dose: 100 mls/hr Calcium Gluconate 1,000 mg/ (Sodium Chloride) 110 mls @ 660 mls/hr IV Q4H [facility] Stop: 12/10/16 14:09 Last Admin: 12/10/16 10:50 Dose: 660 mls/hr Nevirapine (Viramune) 200 mg PO BID [facility] Last Admin: 12/10/16 09:31 Dose: 200 mg Ondansetron HCl (Zofran) 4 mg IV Q4H PRN PRN Reason: N/V unrelieved by Chris Pantoprazole Sodium (Protonix) 40 mg PO DAILY [facility] Last Admin: 12/10/16 09:31 Dose: 40 mg Ritonavir (Norvir) 100 mg PO BID [facility] Last Admin: 12/10/16 09:31 Dose: 100 mg - Imaging and cardiology Other: report reviewed (Renal Ultrasound)
[2016-12-10] MEDS: SODIUM BICARBONATE 75 MEQ in D5W 1,000 ML IV SCH (14:10)
[2016-12-10 16:18] LABS: Calcium 6.2 mg/dL (8.4-10.2); Chloride 116.9 mmol/L (98-107); Magnesium 1.6 mg/dL (1.7-2.3); Potassium 3.2 mmol/L (3.6-5.0)
[2016-12-10 16:34] LABS: BUN/Creatinine Ratio 19.16
[2016-12-10 19:25] LABS: Myeloperoxidase Antibody <1.0 AI (<1.0)
[2016-12-10] MEDS ORDERED: CALCIUM GLUCONATE 1,000 MG in NACL 0.9% 100 ML IV ONE (22:03)
[2016-12-10] MEDS ORDERED: MAGNESIUM SULFATE IV ONE ×2 (22:03→23:00)
[2016-12-10] MEDS ORDERED: NACL 0.9% IV ONE (23:00)
[2016-12-11] MEDS: ZOSYN/NS 2.25 GM/50ML 2.25 GM/50 ML BAG IV SCH (08:44)
[2016-12-11] MEDS: SODIUM BICARBONATE 75 MEQ in D5W 1,000 ML IV SCH (08:45)
--- NOTE | 2016-12-11 09:12 | Progress Note ---
Assessment and Plan Assessment: * Nonoliguric acute kidney injury secondary to ATN; ?history of CKD --FeNa>1%; dsDNA, ANCA, C3/C4 negative * Metabolic acidosis, improved * HIV * Septic shock - ?urosepsis * GNR UTI * Hypernatremia * Hypocalcemia - corrected Ca 6.6 * Hypokalemia * Hx of psychiatric disorder Plan: * Renal function unchanged - SCr has plateaued - patient reports prior history of kidney disease; receives care at [place] - will obtain records to establish baseline * Continue IVF - will change to D5 08/07 NS * Await pending serologies * Replete lytes prn - ordered CaGluconate and KCl * Empiric abx per ID/primary team * Strict I/O * Avoid potential nephrotoxins * Dose medications for renal function Subjective Date of service: 12/11/16 Interval history: Patient seen without complaint. He denies SOB. Reports good appetite. Objective - Vital Signs Vital signs: Vital Signs - 12hr 12/10/16 12/11/16 12/11/16 22:00 00:06 03:38 Temperature 97.4 F L 97.7 F Pulse Rate [ 78 68 Apical] Pulse Rate [ Right Radial] Respiratory 16 16 16 Rate Blood Pressure 112/60 103/55 [Left Arm] Blood Pressure [Right Arm] O2 Sat by Pulse 98 98 Oximetry 12/11/16 07:25 Temperature 98.2 F Pulse Rate [ Apical] Pulse Rate [ 75 Right Radial] Respiratory 20 Rate Blood Pressure [Left Arm] Blood Pressure 111/61 [Right Arm] O2 Sat by Pulse 100 Oximetry - General Appearance General appearance: chronically ill, frail EENT: ATNC Respiratory: Present: Clear to Ascultation Cardiology: regular, S1S2 Gastrointestinal: normal, no tenderness, no distended Integumentary: no rash Musculoskeletal: other (no edema) Psychiatric: cooperative - Lab 12/10/16 04:00 12/11/16 08:50 Most recent lab results Calcium 6.2 mg/dL (8.4-10.2) L 12/10/16 15:36 Magnesium 1.60 mg/dL (1.7-2.3) L 12/10/16 15:36 Urine Creatinine 15.7 mg/dL (0.1-20.0) 12/08/16 21:12 Urine Sodium 159 mEq/L 12/08/16 21:12
[2016-12-11] MEDS: PROTONIX PO SCH (10:25)
[2016-12-11 10:32] LABS: Potassium 3.2 mmol/L (3.6-5.0)
[2016-12-11 10:39] LABS: BUN/Creatinine Ratio 16.84
[2016-12-11 10:41] LABS: Calcium 5.9 mg/dL (8.4-10.2)
[2016-12-11] MEDS: ZIAGEN PO SCH ×2 (12:42→22:43)
[2016-12-11] MEDS: NORVIR PO SCH ×2 (12:42→22:44)
[2016-12-11] MEDS: PREZISTA PO SCH ×2 (12:42→22:44)
[2016-12-11] MEDS: VIRAMUNE PO SCH ×2 (12:42→22:44)
--- NOTE | 2016-12-11 13:09 | Progress Note ---
Assessment and Plan - Patient Problems (1) HIV (human immunodeficiency virus infection) Current Visit: Yes Status: Acute Plan to address problem: Still await CD4 count for staging. Continue current HAART regimen. (2) UTI (urinary tract infection) Current Visit: Yes Status: Acute Qualifiers: Urinary tract infection type: acute cystitis Hematuria presence: without hematuria Indwelling urinary catheter type: I Encounter type: E Qualified Code(s): N30.00 - Acute cystitis without hematuria Plan to address problem: Will change Zosyn to Doxycycline to complete a 5-7-day course. Elaine has been removed. Subjective Date of service: 12/11/16 Principal diagnosis: HIV infection; UTI Interval history: No new clinical events. Tranferred from ICU. Objective - Constitutional Vitals: Vital Signs Temp Pulse Resp BP Pulse Ox 98.2 F 75 20 111/61 100 12/11/16 07:25 12/11/16 07:25 12/11/16 07:25 12/11/16 07:25 12/11/16 07:25 Temperature -Last 24 Hours Temperature 98.2 F Temperature 97.7 F Temperature 97.4 F Temperature 98.4 F General appearance: Present: no acute distress - EENT Eyes: no scleral icterus, no conjunctival injection - Respiratory Respiratory: bilateral: CTA, negative: rales, wheezing - Cardiovascular Rhythm: regular Heart Sounds: Present: S1 & S2 Extremities: No edema - Integumentary Integumentary: no jaundice, no rash - Neurologic Neurologic: no focal deficits - Labs CBC & Chem 7: 12/10/16 04:00 12/11/16 08:50 Labs: Abnormal lab results 12/10/16 12/11/16 12/11/16 Range/Units 15:36 08:50 11:13 Sodium 155 H 155 H (137-145) mmol/L Potassium 3.2 L 3.2 L (3.6-5.0) mmol/L Chloride 116.9 H 115.0 H (98-107) mmol/L Carbon Dioxide 19 L 19 L (22-30) mmol/L BUN 138 H 128 H (9-20) mg/dL Creatinine 7.2 H 7.6 H (0.8-1.5) mg/dL Glucose 111 H 117 H (75-100) mg/dL POC Glucose 112 H (70-105) Calcium 6.2 L 5.9 L* (8.4-10.2) mg/dL Magnesium 1.60 L (1.7-2.3) mg/dL Microbiology 12/10/16 04:09 Urine,Clean Catch Urine Culture - Preliminary 12/08/16 21:26 Urine,Catheterized - Indwelling Catheter Urine Culture - Preliminary Klebsiella Oxytoca 12/08/16 21:59 Peripheral/Venous Blood Culture - Preliminary NO GROWTH AFTER 48 HOURS 12/08/16 20:51 Peripheral/Venous Blood Culture - Preliminary NO GROWTH AFTER 48 HOURS 12/10/16 07:26 Serum Cryptococcal Antigen - Final Active Medications Abacavir Sulfate (Ziagen) 300 mg PO BID [facility] Last Admin: 12/11/16 12:42 Dose: 300 mg Acetaminophen (Tylenol) 650 mg PO Q4H PRN PRN Reason: Pain MILD(1-3)/Fever >100.5/LUDWIG Darunavir (Prezista) 600 mg PO BID [facility] Last Admin: 12/11/16 12:42 Dose: 600 mg Piperacillin Sod/Tazobactam Sod (Zosyn/Ns 2.25 Gm/50ml) 2.25 gm in 50 mls @ 100 mls/hr IV Q8H [facility] PRN Reason: Protocol Last Admin: 12/11/16 08:44 Dose: 100 mls/hr Sodium Bicarbonate 75 meq/ (Dextrose) 1,075 mls @ 100 mls/hr IV DIRECT [facility] Last Admin: 12/11/16 08:45 Dose: 100 mls/hr Nevirapine (Viramune) 200 mg PO BID [facility] Last Admin: 12/11/16 12:42 Dose: 200 mg Ondansetron HCl (Zofran) 4 mg IV Q4H PRN PRN Reason: N/V unrelieved by Chris Pantoprazole Sodium (Protonix) 40 mg PO DAILY [facility] Last Admin: 12/11/16 10:25 Dose: 40 mg Ritonavir (Norvir) 100 mg PO BID [facility] Last Admin: 12/11/16 12:42 Dose: 100 mg
--- NOTE | 2016-12-11 13:57 | Progress Note ---
Assessment and Plan Assessment and plan: 61 year old man with history of HIV, psych problems per EMS report was brought to the emergency room because he had not eaten in 2 days. In the ER na was noted to be 166, low BP and UTI. Septic shock - improved with Iv fluid - due to UTI - cont abx Sepsis -UTI - urine cultures reviewed, growing Klebsiella oxytoca -Antibiotics have been the escalated to doxycycline, sensitivities reviewed and it is sensitive to it Acute renal failure, nonoliguric -Nephrology input appreciated send acute kidney failure due to combination of ATN and vasomotor nephropathy - Continue IV fluids, improving - nephrology following - no plan for HD now Hypernatremia - improving with isotonic solution, when acidosis is resolved we'll change him to a hypotonic solution - monitor with frequent BMP Metabolic acidosis - cont bicarbonate drip, nephrology input appreciated Hypokalemia repleted Underlying psychiatric problem - no overt issue now, consult psych when medically stable HIV -ID input appreciated, continue retrovirals, follow-up CD4 counts Anemia of chronic disease - monitor H and h, stable - likely from CKD Moderate Malnutrition encourage PO intake of balanced diet Critical care time 32 minutes History Interval history: Carloz states that he feels well, denies nausea, denies chest pain, denies shortness of breath. Hospitalist Physical - Physical exam Narrative exam: General: Cachectic, nontoxic appearance HEENT: MMM, EOMI cardiac: S1-S2 heard lungs: clear to auscultation, abdomen: soft, nontender, nondistended bowel sounds positive extremities: no edema clubbing or cyanosis Skin: no rash or lesion Neuro: no focal deficit Psych: appropriate behavior and mood, cognition intact - Constitutional Vitals: Temp Pulse Resp BP Pulse Ox 98.2 F 75 20 111/61 100 12/11/16 07:25 12/11/16 07:25 12/11/16 07:25 12/11/16 07:25 12/11/16 07:25 General appearance: Present: no acute distress, disheveled, other (thin man) Results - Labs CBC & Chem 7: 12/10/16 04:00 12/11/16 08:50 Labs: Laboratory Last Values WBC 11.5 K/mm3 (4.5-11.0) H 12/10/16 04:00 RBC 2.26 M/mm3 (3.65-5.03) L 12/10/16 04:00 Hgb 6.9 gm/dl (11.8-15.2) L 12/10/16 04:00 Hct 21.1 % (35.5-45.6) L 12/10/16 04:00 MCV 94 fl (84-94) 12/10/16 04:00 MCH 31 pg (28-32) 12/10/16 04:00 MCHC 33 % (32-34) 12/10/16 04:00 RDW 16.1 % (13.2-15.2) H 12/10/16 04:00 Plt Count 139 K/mm3 (140-440) L 12/10/16 04:00 Lymph % (Auto) 21.7 % (13.4-35.0) 12/10/16 04:00 [place] % (Auto) 6.0 % (0.0-7.3) 12/10/16 04:00 Eos % (Auto) 1.2 % (0.0-4.3) 12/10/16 04:00 Baso % (Auto) 0.5 % (0.0-1.8) 12/10/16 04:00 Lymph # 2.5 K/mm3 (1.2-5.4) 12/10/16 04:00 [place] # 0.7 K/mm3 (0.0-0.8) 12/10/16 04:00 Eos # 0.1 K/mm3 (0.0-0.4) 12/10/16 04:00 Baso # 0.1 K/mm3 (0.0-0.1) 12/10/16 04:00 Seg Neutrophils % 70.6 % (40.0-70.0) H 12/10/16 04:00 Seg Neutrophils # 8.1 K/mm3 (1.8-7.7) H 12/10/16 04:00 Sodium 155 mmol/L (137-145) H 12/11/16 08:50 Potassium 3.2 mmol/L (3.6-5.0) L 12/11/16 08:50 Chloride 115.0 mmol/L (98-107) H 12/11/16 08:50 Carbon Dioxide 19 mmol/L (22-30) L 12/11/16 08:50 Anion Gap 24 mmol/L 12/11/16 08:50 BUN 128 mg/dL (9-20) H 12/11/16 08:50 Creatinine 7.6 mg/dL (0.8-1.5) H 12/11/16 08:50 Estimated GFR 7 ml/min 12/11/16 08:50 BUN/Creatinine Ratio 16.84 % 12/11/16 08:50 Glucose 117 mg/dL (75-100) H 12/11/16 08:50 POC Glucose 112 (70-105) H 12/11/16 11:13 Lactic Acid 1.90 mmol/L (0.7-2.0) 12/08/16 20:51 Calcium 5.9 mg/dL (8.4-10.2) L* 12/11/16 08:50 Magnesium 1.60 mg/dL (1.7-2.3) L 12/10/16 15:36 Total Bilirubin 0.20 mg/dL (0.1-1.2) 12/08/16 20:51 AST 12 units/L (5-40) 12/08/16 20:51 ALT < 5 units/L (7-56) L 12/08/16 20:51 Alkaline Phosphatase 120 units/L (35-129) 12/08/16 20:51 Total Creatine Kinase 298 units/L (55-170) H 12/09/16 06:00 CK-MB (CK-2) 9.7 ng/mL (0.0-4.0) H 12/09/16 06:00 CK-MB (CK-2) Rel Index 3.2 (0-4) 12/09/16 06:00 Troponin T 0.016 ng/mL (0.00-0.029) 12/09/16 06:00 Total Protein 6.2 g/dL (6.3-8.2) L 12/08/16 20:51 Albumin 3.2 g/dL (3.9-5) L 12/08/16 20:51 Albumin/Globulin Ratio 1.1 % 12/08/16 20:51 TSH 1.560 mlU/mL (0.270-4.200) 12/08/16 20:51 Urine Color Straw (Yellow) 12/08/16 21:12 Urine Turbidity Turbid (Clear) 12/08/16 21:12 Urine pH 8.0 (5.0-7.0) H 12/08/16 21:12 Ur Specific [place] 1.010 (1.003-1.030) 12/08/16 21:12 Urine Protein >500 mg/dL (Negative) 12/08/16 21:12 Urine Glucose (UA) Negative mg/dL (Negative) 12/08/16 21:12 Urine Ketones Negative mg/dL (Negative) 12/08/16 21:12 Urine Blood Large (Negative) A 12/08/16 21:12 Urine Nitrite Positive (Negative) 12/08/16 21:12 Ur Reducing Substances Not Reportable 12/08/16 21:12 Urine Bilirubin Negative (Negative) 12/08/16 21:12 Urine Ictotest Not Reportable 12/08/16 21:12 Urine Urobilinogen < 2.0 mg/dL (<2.0) 12/08/16 21:12 Ur Leukocyte Esterase Large (Negative) 12/08/16 21:12 Urine WBC (Auto) > 182.0 /HPF (0.0-6.0) H 12/08/16 21:12 Urine RBC (Auto) > 182.0 /HPF (0.0-6.0) 12/08/16 21:12 U Epithel Cells (Auto) 14.0 /HPF (0-13.0) H 12/08/16 21:12 Urine Bacteria (Auto) 4+ /HPF (Negative) 12/08/16 21:12 Urine Mucus 3+ /HPF 12/08/16 21:12 Urine Creatinine 15.7 mg/dL (0.1-20.0) 12/08/16 21:12 Urine Sodium 159 mEq/L 12/08/16 21:12 Fraction Sodium Excret 65.4 12/08/16 21:12 Proteinase 3 (PR3) Ab <1.0 AI (<1.0) 12/09/16 01:00 Myeloperoxidase Ab <1.0 AI (<1.0) 12/09/16 01:00 Double Strand DNA Ab <1 IU/mL (<=4) 12/09/16 01:00 Complement C3 109 mg/dL (90-180) 12/09/16 01:00 Complement C4 29 mg/dL (16-47) 12/09/16 01:00 Hep B Core IgM Ab Non-reactive (NonReactive) 12/08/16 20:51 Hepatitis C Antibody Non-reactive (NonReactive) 12/08/16 20:51
[2016-12-11] MEDS ORDERED: K-DUR PO ONE ×2 (14:00→22:03)
[2016-12-11] MEDS ORDERED: CALCIUM GLUCONATE 2,000 MG in NACL 0.9% 100 ML IV ONE (14:30)
[2016-12-11] MEDS: DOXYCYCLINE HYCLATE 100 MG in NACL 0.9% 250ML 250 ML IV SCH (16:19)
[2016-12-11] MEDS ORDERED: KCL 20 MEQ in D5W 1,000 ML IV SCH (17:30)
--- NOTE | 2016-12-11 21:08 | Progress Note ---
Assessment and Plan Patient weak, contracted. Resting on room air. O2 satuaration 98%. Afebrile.No acute respiratory distress. - Patient Problems (1) Sepsis associated hypotension Current Visit: Yes Status: Acute Plan to address problem: Patients blood pressure improved. Patient is on I/V Doxycycline. Antibiotic coverage as per infectious diseases. (2) Acute renal failure Current Visit: Yes Status: Acute Qualifiers: Acute renal failure type: A Plan to address problem: Management as per nephrology. (3) HIV (human immunodeficiency virus infection) Current Visit: Yes Status: Acute Plan to address problem: Management as per primary care and infectious diseases. (4) Hypernatremia Current Visit: Yes Status: Acute Plan to address problem: Still hypernatremic. Na+ 155. Fluid management as per nephrology. (5) Hypothermia Current Visit: Yes Status: Acute Qualifiers: Encounter type: E Plan to address problem: Improved. Present temparature 98.1F. Subjective Date of service: 12/11/16 Principal diagnosis: HIV infection; UTI Interval history: Patient weak, contracted. Resting on room air. O2 satuaration 98%. Afebrile.No acute respiratory distress. . Objective Vital Signs - 12hr 12/11/16 12/11/16 12:15 15:20 Temperature 98 F 98.1 F Pulse Rate [ 72 78 Right Radial] Respiratory 16 18 Rate Blood Pressure 113/65 105/61 [Right Arm] O2 Sat by Pulse 98 Oximetry Constitutional: no acute distress, lethargic Eyes: non-icteric, other (Sunken.) ENT: oropharynx moist Neck: supple, no lymphadenopathy Ascultation: Bilateral: diminished breath sounds Cardiovascular: regular rate and rhythm Gastrointestinal: normoactive bowel sounds, soft, non-tender Integumentary: normal Extremities: no cyanosis, no edema, other (Contracted.) Neurologic: pupils equal and round, unable to assess Psychiatric: depressed CBC and BMP: 12/10/16 04:00 12/11/16 08:50 Abnormal lab findings: Abnormal Labs 12/08/16 12/08/16 12/08/16 23:04 23:04 23:04 WBC RBC Hgb Hct MCV RDW Plt Count Lymph % (Auto) Lymph # Seg Neutrophils % Seg Neutrophils # Sodium 161 H* 161 H* Potassium 5.1 H Chloride 125.5 H Carbon Dioxide 11 L BUN 182 H Creatinine 9.7 H 9.7 H Glucose POC Glucose Calcium 7.3 L Magnesium Total Creatine Kinase 275 H CK-MB (CK-2) 9.4 H PTH Intact 12/09/16 12/09/16 12/09/16 06:00 06:00 06:00 WBC RBC 2.24 L Hgb 7.1 L Hct 23.9 L MCV 95 H D RDW 16.1 H Plt Count Lymph % (Auto) 10.7 L Lymph # 1.1 L Seg Neutrophils % 85.2 H Seg Neutrophils # 9.1 H Sodium 156 H Potassium Chloride 120.8 H Carbon Dioxide 13 L BUN 169 H Creatinine 8.6 H Glucose 118 H POC Glucose Calcium 6.1 L D Magnesium Total Creatine Kinase 298 H CK-MB (CK-2) 9.7 H PTH Intact 12/09/16 12/09/16 12/09/16 07:25 11:56 13:56 WBC RBC Hgb Hct MCV RDW Plt Count Lymph % (Auto) Lymph # Seg Neutrophils % Seg Neutrophils # Sodium 157 H Potassium 3.5 L Chloride 121.3 H Carbon Dioxide 15 L BUN 164 H Creatinine 8.4 H Glucose 107 H POC Glucose 120 H 106 H Calcium 6.3 L Magnesium Total Creatine Kinase CK-MB (CK-2) PTH Intact 12/10/16 12/10/16 12/10/16 04:00 04:00 12:06 WBC 11.5 H RBC 2.26 L Hgb 6.9 L Hct 21.1 L MCV RDW 16.1 H Plt Count 139 L Lymph % (Auto) Lymph # Seg Neutrophils % 70.6 H Seg Neutrophils # 8.1 H Sodium 156 H Potassium 3.1 L Chloride 117.8 H Carbon Dioxide 17 L BUN 149 H Creatinine 7.9 H Glucose POC Glucose 132 H Calcium 6.0 L Magnesium Total Creatine Kinase CK-MB (CK-2) PTH Intact 12/10/16 12/11/16 12/11/16 15:36 08:50 11:13 WBC RBC Hgb Hct MCV RDW Plt Count Lymph % (Auto) Lymph # Seg Neutrophils % Seg Neutrophils # Sodium 155 H 155 H Potassium 3.2 L 3.2 L Chloride 116.9 H 115.0 H Carbon Dioxide 19 L 19 L BUN 138 H 128 H Creatinine 7.2 H 7.6 H Glucose 111 H 117 H POC Glucose 112 H Calcium 6.2 L 5.9 L* Magnesium 1.60 L Total Creatine Kinase CK-MB (CK-2) PTH Intact 12/11/16 13:53 WBC RBC Hgb Hct MCV RDW Plt Count Lymph % (Auto) Lymph # Seg Neutrophils % Seg Neutrophils # Sodium Potassium Chloride Carbon Dioxide BUN Creatinine Glucose POC Glucose Calcium Magnesium Total Creatine Kinase CK-MB (CK-2) PTH Intact 348.9 H Chest x-ray: report reviewed (Reported Lungs clear. Heart and pulmonary vessels are normal.)
[2016-12-12] MEDS: D5NS 0.2% 1,000 ML IV SCH (00:50)
[2016-12-12] MEDS: DOXYCYCLINE HYCLATE 100 MG in NACL 0.9% 250ML 250 ML IV SCH ×3 (00:50→23:06)
[2016-12-12 04:03] LABS: Albumin 2.7 g/dL (3.8-4.8); Gamma Globulin 1.2 g/dL (0.8-1.7)
[2016-12-12 07:33] LABS: Albumin 2.7 g/dL (3.9-5); Alkaline Phosphatase 62 units/L (35-129); Anion Gap 24 mmol/L; Carbon Dioxide 18 mmol/L (22-30); Chloride 114.6 mmol/L (98-107); Glucose 79 mg/dL (75-100); Potassium 3.4 mmol/L (3.6-5.0); Sodium 153 mmol/L (137-145); Total Protein 5.3 g/dL (6.3-8.2)
[2016-12-12 07:35] LABS: Alanine Aminotransferase < 5 units/L (7-56); Calcium 5.7 mg/dL (8.4-10.2)
[2016-12-12 07:48] LABS: BUN/Creatinine Ratio 16.66; Blood Urea Nitrogen 125 mg/dL (9-20)
--- NOTE | 2016-12-12 08:13 | Progress Note ---
Assessment and Plan - Patient Problems (1) HIV (human immunodeficiency virus infection) Current Visit: Yes Status: Acute Plan to address problem: 1. Continue HAART. 2. CD4 count still pending. Will follow-up to determine need of OI prophylaxis. 3. If lab is resulted today and CD4>200, I will sign off. Continue current HAART regimen, which requires no renal adjustments. (2) UTI (urinary tract infection) Current Visit: Yes Status: Acute Qualifiers: Urinary tract infection type: acute cystitis Hematuria presence: without hematuria Indwelling urinary catheter type: I Encounter type: E Qualified Code(s): N30.00 - Acute cystitis without hematuria Plan to address problem: 1. Completing 5-7 days of Doxycycline (stop date December 14). 2. Okay to transition to oral Doxycycline 100mg q12h when patient is reliably tolerating oral therapy or at discharge. Subjective Date of service: 12/12/16 Principal diagnosis: HIV infection; UTI Interval history: Patient remains afebrile with no new clinical issues. Objective - Constitutional Vitals: Vital Signs Temp Pulse Resp BP Pulse Ox 98.2 F 84 18 120/71 98 12/12/16 00:00 12/11/16 22:00 12/12/16 00:00 12/12/16 00:00 12/12/16 00:00 Temperature -Last 24 Hours Temperature 98.2 F Temperature 98.1 F Temperature 98 F General appearance: Present: no acute distress, other (keeps head and body covered with blankets) - EENT Eyes: no conjunctival injection ENT: no thrush - Respiratory Respiratory: bilateral: CTA, negative: rales, wheezing - Cardiovascular Rhythm: regular Heart Sounds: Present: S1 & S2 Extremities: No edema - Gastrointestinal General gastrointestinal: Present: soft, non-distended - Integumentary Integumentary: no rash - Psychiatric Psychiatric: other (pleasantly uncooperative) - Labs CBC & Chem 7: 12/10/16 04:00 12/12/16 06:40 Labs: Abnormal lab results 12/09/16 12/11/16 12/11/16 Range/Units 06:00 08:50 11:13 Sodium 155 H (137-145) mmol/L Potassium 3.2 L (3.6-5.0) mmol/L Chloride 115.0 H (98-107) mmol/L Carbon Dioxide 19 L (22-30) mmol/L BUN 128 H (9-20) mg/dL Creatinine 7.6 H (0.8-1.5) mg/dL Glucose 117 H (75-100) mg/dL POC Glucose 112 H (70-105) Calcium 5.9 L* (8.4-10.2) mg/dL ALT (7-56) units/L Serum Total Protein 5.2 L (6.1-8.1) g/dL Total Protein (6.3-8.2) g/dL Albumin 2.7 L (3.8-4.8) g/dL PEP Interpretation see below H PTH Intact (15-65) pg/mL 12/11/16 12/12/16 Range/Units 13:53 06:40 Sodium (137-145) mmol/L Potassium 3.4 L (3.6-5.0) mmol/L Chloride 114.6 H (98-107) mmol/L Carbon Dioxide 18 L (22-30) mmol/L BUN 125 H (9-20) mg/dL Creatinine 7.5 H (0.8-1.5) mg/dL Glucose (75-100) mg/dL POC Glucose (70-105) Calcium 5.7 L* (8.4-10.2) mg/dL ALT < 5 L (7-56) units/L Serum Total Protein (6.1-8.1) g/dL Total Protein 5.3 L (6.3-8.2) g/dL Albumin 2.7 L (3.8-4.8) g/dL PEP Interpretation PTH Intact 348.9 H (15-65) pg/mL Microbiology 12/08/16 21:59 Peripheral/Venous Blood Culture - Preliminary NO GROWTH AFTER 72 HOURS 12/08/16 20:51 Peripheral/Venous Blood Culture - Preliminary NO GROWTH AFTER 72 HOURS 12/10/16 04:09 Urine,Clean Catch Urine Culture - Preliminary 12/08/16 21:26 Urine,Catheterized - Indwelling Catheter Urine Culture - Preliminary Klebsiella Oxytoca 12/10/16 07:26 Serum Cryptococcal Antigen - Final Active Medications Abacavir Sulfate (Ziagen) 300 mg PO BID JOSE Last Admin: 12/11/16 22:43 Dose: 300 mg Acetaminophen (Tylenol) 650 mg PO Q4H PRN PRN Reason: Pain MILD(1-3)/Fever >100.5/LUDWIG Darunavir (Prezista) 600 mg PO BID [facility] Last Admin: 12/11/16 22:44 Dose: 600 mg Doxycycline Hyclate 100 mg/ (Sodium Chloride) 250 mls @ 250 mls/hr IV Q12HR JOSE PRN Reason: Protocol Last Admin: 12/12/16 00:50 Dose: 250 mls/hr Dextrose/Sodium Chloride (D5ns 0.2%) 1,000 mls @ 75 mls/hr IV DIRECT JOSE Last Admin: 12/12/16 00:50 Dose: 75 mls/hr Nevirapine (Viramune) 200 mg PO BID [facility] Last Admin: 12/11/16 22:44 Dose: 200 mg Ondansetron HCl (Zofran) 4 mg IV Q4H PRN PRN Reason: N/V unrelieved by Chris Pantoprazole Sodium (Protonix) 40 mg PO DAILY [facility] Last Admin: 12/11/16 10:25 Dose: 40 mg Ritonavir (Norvir) 100 mg PO BID JOSE Last Admin: 12/11/16 22:44 Dose: 100 mg
[2016-12-12] MEDS ORDERED: K-DUR PO ONE ×2 (08:33→12:00)
[2016-12-12] MEDS ORDERED: CALCIUM GLUCONATE 2,000 MG in NACL 0.9% 100 ML IV ONE (08:33)
--- NOTE | 2016-12-12 08:35 | Progress Note ---
Assessment and Plan Assessment: * Nonoliguric acute kidney injury secondary to ATN; ?history of CKD --FeNa>1%; dsDNA, ANCA, C3/C4 negative * Metabolic acidosis, improved * HIV * Septic shock - ?urosepsis * Klebsiella UTI * Hypernatremia * Hypocalcemia * Secondary hyperparathyroidism * Hypokalemia * Hx of psychiatric disorder Plan: * Renal function unchanged - SCr has plateaued - anticipate need for dialysis * Patient reports prior history of kidney disease - [facility] * Continue IVF -continue D5 / NS * Await pending serologies * Start Calcitriol 0.5mcg daily * Replete lytes prn - ordered CaGluconate, Tums and KCl * Abx per ID/primary team * Strict I/O * Avoid potential nephrotoxins * Dose medications for renal function Subjective Date of service: 12/12/16 Principal diagnosis: HIV infection; UTI Interval history: Patient has no complaints today. Objective - Vital Signs Vital signs: Vital Signs - 12hr 12/11/16 12/12/16 22:00 00:00 Temperature 98.2 F Pulse Rate [ 84 Apical] Respiratory 18 Rate Blood Pressure 120/71 [Right Arm] O2 Sat by Pulse 98 Oximetry - General Appearance General appearance: cachectic, frail EENT: ATNC Respiratory: Present: Clear to Ascultation Cardiology: regular, S1S2 Gastrointestinal: normal, no tenderness, no distended Musculoskeletal: other (no edema) Psychiatric: cooperative - Lab 12/10/16 04:00 12/13/16 05:01 Most recent lab results Calcium 5.7 mg/dL (8.4-10.2) L* 12/12/16 06:40 Magnesium 1.60 mg/dL (1.7-2.3) L 12/10/16 15:36 Urine Creatinine 15.7 mg/dL (0.1-20.0) 12/08/16 21:12 Urine Sodium 159 mEq/L 12/08/16 21:12
[2016-12-12] MEDS ORDERED: CALCIUM GLUCONATE 2,000 MG in NACL 0.9% 250ML 250 ML IV ONE (10:30)
[2016-12-12] MEDS: ROCALTROL PO SCH (11:13)
[2016-12-12] MEDS: PREZISTA PO SCH ×2 (11:13→23:07)
[2016-12-12] MEDS: NORVIR PO SCH ×2 (11:13→23:07)
[2016-12-12] MEDS: VIRAMUNE PO SCH ×2 (11:13→23:07)
[2016-12-12] MEDS: PROTONIX PO SCH (11:14)
[2016-12-12] MEDS: OSCAL PO SCH ×2 (11:14→23:07)
[2016-12-12] MEDS: ZIAGEN PO SCH ×2 (11:14→23:07)
--- NOTE | 2016-12-12 13:56 | Progress Note ---
Assessment and Plan Assessment and plan: 61 year old man with history of HIV, psych problems per EMS report was brought to the emergency room because he had not eaten in 2 days. In the ER na was noted to be 166, low BP and UTI. Septic shock - improved with Iv fluid - due to UTI - cont abx Sepsis -UTI - urine cultures reviewed, growing Klebsiella oxytoca -Antibiotics have been de- escalated to doxycycline, sensitivities reviewed and it is sensitive to it, to receive 5-7 day course, till december 14 CKD stage 5, creatinine has reached plateau, may require renal replacement -Nephrology input appreciated, acute kidney failure due to combination of ATN and vasomotor nephropathy - Continue IV fluids, patient may need HD in the near future Hypernatremia - improving with hypotonic solution - monitor with frequent BMP Metabolic acidosis - sp bicarb dip, improved Hypokalemia repleted Underlying psychiatric problem - no overt issue now, consult psych when medically stable HIV -ID input appreciated, continue retrovirals, follow-up CD4 counts Anemia of chronic disease - monitor H and h, stable - likely from CKD Moderate Malnutrition Personal Financial Counselor consult, encourage PO intake of balanced diet History Interval history: Carloz states that he feels well, denies nausea, denies chest pain, denies shortness of breath. Hospitalist Physical - Physical exam Narrative exam: General: Cachectic, nontoxic appearance HEENT: MMM, EOMI cardiac: S1-S2 heard lungs: clear to auscultation, abdomen: soft, nontender, nondistended bowel sounds positive extremities: no edema clubbing or cyanosis Skin: no rash or lesion Neuro: no focal deficit Psych: appropriate behavior and mood, cognition intact - Constitutional Vitals: Temp Pulse Resp BP Pulse Ox 97.1 F L 65 18 96/51 100 12/12/16 07:00 12/12/16 07:00 12/12/16 07:00 12/12/16 07:00 12/12/16 07:00 General appearance: Present: no acute distress, cachectic, other (keeps head and body covered with blankets) Results - Labs CBC & Chem 7: 12/10/16 04:00 12/12/16 06:40 Labs: Laboratory Last Values WBC 11.5 K/mm3 (4.5-11.0) H 12/10/16 04:00 RBC 2.26 M/mm3 (3.65-5.03) L 12/10/16 04:00 Hgb 6.9 gm/dl (11.8-15.2) L 12/10/16 04:00 Hct 21.1 % (35.5-45.6) L 12/10/16 04:00 MCV 94 fl (84-94) 12/10/16 04:00 MCH 31 pg (28-32) 12/10/16 04:00 MCHC 33 % (32-34) 12/10/16 04:00 RDW 16.1 % (13.2-15.2) H 12/10/16 04:00 Plt Count 139 K/mm3 (140-440) L 12/10/16 04:00 Lymph % (Auto) 21.7 % (13.4-35.0) 12/10/16 04:00 [place] % (Auto) 6.0 % (0.0-7.3) 12/10/16 04:00 Eos % (Auto) 1.2 % (0.0-4.3) 12/10/16 04:00 Baso % (Auto) 0.5 % (0.0-1.8) 12/10/16 04:00 Lymph # 2.5 K/mm3 (1.2-5.4) 12/10/16 04:00 [place] # 0.7 K/mm3 (0.0-0.8) 12/10/16 04:00 Eos # 0.1 K/mm3 (0.0-0.4) 12/10/16 04:00 Baso # 0.1 K/mm3 (0.0-0.1) 12/10/16 04:00 Seg Neutrophils % 70.6 % (40.0-70.0) H 12/10/16 04:00 Seg Neutrophils # 8.1 K/mm3 (1.8-7.7) H 12/10/16 04:00 Sodium 155 mmol/L (137-145) H 12/11/16 08:50 Potassium 3.4 mmol/L (3.6-5.0) L 12/12/16 06:40 Chloride 114.6 mmol/L (98-107) H 12/12/16 06:40 Carbon Dioxide 18 mmol/L (22-30) L 12/12/16 06:40 Anion Gap 24 mmol/L 12/12/16 06:40 BUN 125 mg/dL (9-20) H 12/12/16 06:40 Creatinine 7.5 mg/dL (0.8-1.5) H 12/12/16 06:40 Estimated GFR 7 ml/min 12/12/16 06:40 BUN/Creatinine Ratio 16.66 % 12/12/16 06:40 Glucose 79 mg/dL (75-100) 12/12/16 06:40 POC Glucose 112 (70-105) H 12/11/16 11:13 Lactic Acid 1.90 mmol/L (0.7-2.0) 12/08/16 20:51 Calcium 5.7 mg/dL (8.4-10.2) L* 12/12/16 06:40 Magnesium 1.60 mg/dL (1.7-2.3) L 12/10/16 15:36 Total Bilirubin 0.30 mg/dL (0.1-1.2) 12/12/16 06:40 AST 21 units/L (5-40) 12/12/16 06:40 ALT < 5 units/L (7-56) L 12/12/16 06:40 Alkaline Phosphatase 62 units/L (35-129) 12/12/16 06:40 Total Creatine Kinase 298 units/L (55-170) H 12/09/16 06:00 CK-MB (CK-2) 9.7 ng/mL (0.0-4.0) H 12/09/16 06:00 CK-MB (CK-2) Rel Index 3.2 (0-4) 12/09/16 06:00 Troponin T 0.016 ng/mL (0.00-0.029) 12/09/16 06:00 Serum Total Protein 5.2 g/dL (6.1-8.1) L 12/09/16 06:00 Total Protein 5.3 g/dL (6.3-8.2) L 12/12/16 06:40 Albumin 2.7 g/dL (3.9-5) L 12/12/16 06:40 Albumin/Globulin Ratio 1.0 % 12/12/16 06:40 Fbwtg-0-Qtmmequqi 0.3 g/dL (0.2-0.3) 12/09/16 06:00 Myzwm-2-Nvuowkrmd 0.5 g/dL (0.5-0.9) 12/09/16 06:00 Beta Globulins 0.3 g/dL (0.2-0.5) 12/09/16 06:00 Gamma Globulins 1.2 g/dL (0.8-1.7) 12/09/16 06:00 Abnorm Protein Band 1 see below 12/09/16 06:00 PEP Interpretation see below H 12/09/16 06:00 TSH 1.560 mlU/mL (0.270-4.200) 12/08/16 20:51 PTH Intact 348.9 pg/mL (15-65) H 12/11/16 13:53 Urine Color Straw (Yellow) 12/08/16 21:12 Urine Turbidity Turbid (Clear) 12/08/16 21:12 Urine pH 8.0 (5.0-7.0) H 12/08/16 21:12 Ur Specific [place] 1.010 (1.003-1.030) 12/08/16 21:12 Urine Protein >500 mg/dL (Negative) 12/08/16 21:12 Urine Glucose (UA) Negative mg/dL (Negative) 12/08/16 21:12 Urine Ketones Negative mg/dL (Negative) 12/08/16 21:12 Urine Blood Large (Negative) A 12/08/16 21:12 Urine Nitrite Positive (Negative) 12/08/16 21:12 Ur Reducing Substances Not Reportable 12/08/16 21:12 Urine Bilirubin Negative (Negative) 12/08/16 21:12 Urine Ictotest Not Reportable 12/08/16 21:12 Urine Urobilinogen < 2.0 mg/dL (<2.0) 12/08/16 21:12 Ur Leukocyte Esterase Large (Negative) 12/08/16 21:12 Urine WBC (Auto) > 182.0 /HPF (0.0-6.0) H 12/08/16 21:12 Urine RBC (Auto) > 182.0 /HPF (0.0-6.0) 12/08/16 21:12 U Epithel Cells (Auto) 14.0 /HPF (0-13.0) H 12/08/16 21:12 Urine Bacteria (Auto) 4+ /HPF (Negative) 12/08/16 21:12 Urine Mucus 3+ /HPF 12/08/16 21:12 Urine Creatinine 15.7 mg/dL (0.1-20.0) 12/08/16 21:12 Urine Sodium 159 mEq/L 12/08/16 21:12 Fraction Sodium Excret 65.4 12/08/16 21:12 VAN Screen Negative (Negative) 12/09/16 01:00 Proteinase 3 (PR3) Ab <1.0 AI (<1.0) 12/09/16 01:00 Myeloperoxidase Ab <1.0 AI (<1.0) 12/09/16 01:00 Double Strand DNA Ab <1 IU/mL (<=4) 12/09/16 01:00 Complement C3 109 mg/dL (90-180) 12/09/16 01:00 Complement C4 29 mg/dL (16-47) 12/09/16 01:00 Hep B Core IgM Ab Non-reactive (NonReactive) 12/08/16 20:51 Hepatitis C Antibody Non-reactive (NonReactive) 12/08/16 20:51
--- NOTE | 2016-12-12 18:54 | Progress Note ---
Assessment and Plan - Patient Problems (1) Acute renal failure Current Visit: Yes Status: Acute Qualifiers: Acute renal failure type: A Plan to address problem: - suspect chronic element - nephrology evaluation ongoing - making urine (2) HIV (human immunodeficiency virus infection) Current Visit: Yes Status: Acute Plan to address problem: - HAART & anti-infective therapies per ID recs (3) Sepsis associated hypotension Current Visit: Yes Status: Acute Plan to address problem: - hypotension resolved - complete antibiotics course - contyinue gentle hydration - treating azotemia - overall improved Subjective Date of service: 12/12/16 Principal diagnosis: Sepsis Syndrome; HIV infection; UTI Interval history: Seen and examined at bedside; 24 hour events reviewed; nursing and respiratory care staff consulted; no adverse overnight events reported to me; resting peacefully in bed; denies acute chest pains or increased SOB; overall feels better Objective Vital Signs - 12hr 12/12/16 12/12/16 07:00 15:18 Temperature 97.1 F L 97.5 F L Pulse Rate [ 65 75 Right Radial] Respiratory 18 18 Rate Blood Pressure 96/51 117/72 [Right Arm] O2 Sat by Pulse 100 100 Oximetry Constitutional: no acute distress, alert Eyes: non-icteric, other (Sunken.) ENT: oropharynx moist Neck: supple, no lymphadenopathy Effort: normal Ascultation: Bilateral: clear, diminished breath sounds Cardiovascular: regular rate and rhythm Gastrointestinal: normoactive bowel sounds, soft, non-tender, non-distended Integumentary: normal Extremities: no cyanosis, no edema, pink and warm, pulses normal Neurologic: normal mental status, non-focal exam (grossly), pupils equal and round Psychiatric: depressed CBC and BMP: 12/10/16 04:00 12/12/16 06:40 Abnormal lab findings: Abnormal Labs 12/08/16 12/08/16 12/08/16 23:04 23:04 23:04 WBC RBC Hgb Hct MCV RDW Plt Count Lymph % (Auto) Lymph # Seg Neutrophils % Seg Neutrophils # Sodium 161 H* 161 H* Potassium 5.1 H Chloride 125.5 H Carbon Dioxide 11 L BUN 182 H Creatinine 9.7 H 9.7 H Glucose POC Glucose Calcium 7.3 L Magnesium ALT Total Creatine Kinase 275 H CK-MB (CK-2) 9.4 H Serum Total Protein Total Protein Albumin PEP Interpretation PTH Intact 12/09/16 12/09/16 12/09/16 06:00 06:00 06:00 WBC RBC 2.24 L Hgb 7.1 L Hct 23.9 L MCV 95 H D RDW 16.1 H Plt Count Lymph % (Auto) 10.7 L Lymph # 1.1 L Seg Neutrophils % 85.2 H Seg Neutrophils # 9.1 H Sodium 156 H Potassium Chloride 120.8 H Carbon Dioxide 13 L BUN 169 H Creatinine 8.6 H Glucose 118 H POC Glucose Calcium 6.1 L D Magnesium ALT Total Creatine Kinase 298 H CK-MB (CK-2) 9.7 H Serum Total Protein Total Protein Albumin PEP Interpretation PTH Intact 12/09/16 12/09/16 12/09/16 06:00 07:25 11:56 WBC RBC Hgb Hct MCV RDW Plt Count Lymph % (Auto) Lymph # Seg Neutrophils % Seg Neutrophils # Sodium Potassium Chloride Carbon Dioxide BUN Creatinine Glucose POC Glucose 120 H 106 H Calcium Magnesium ALT Total Creatine Kinase CK-MB (CK-2) Serum Total Protein 5.2 L Total Protein Albumin 2.7 L PEP Interpretation see below H PTH Intact 12/09/16 12/10/16 12/10/16 13:56 04:00 04:00 WBC 11.5 H RBC 2.26 L Hgb 6.9 L Hct 21.1 L MCV RDW 16.1 H Plt Count 139 L Lymph % (Auto) Lymph # Seg Neutrophils % 70.6 H Seg Neutrophils # 8.1 H Sodium 157 H 156 H Potassium 3.5 L 3.1 L Chloride 121.3 H 117.8 H Carbon Dioxide 15 L 17 L BUN 164 H 149 H Creatinine 8.4 H 7.9 H Glucose 107 H POC Glucose Calcium 6.3 L 6.0 L Magnesium ALT Total Creatine Kinase CK-MB (CK-2) Serum Total Protein Total Protein Albumin PEP Interpretation PTH Intact 12/10/16 12/10/16 12/11/16 12:06 15:36 08:50 WBC RBC Hgb Hct MCV RDW Plt Count Lymph % (Auto) Lymph # Seg Neutrophils % Seg Neutrophils # Sodium 155 H 155 H Potassium 3.2 L 3.2 L Chloride 116.9 H 115.0 H Carbon Dioxide 19 L 19 L BUN 138 H 128 H Creatinine 7.2 H 7.6 H Glucose 111 H 117 H POC Glucose 132 H Calcium 6.2 L 5.9 L* Magnesium 1.60 L ALT Total Creatine Kinase CK-MB (CK-2) Serum Total Protein Total Protein Albumin PEP Interpretation PTH Intact 12/11/16 12/11/16 12/12/16 11:13 13:53 06:40 WBC RBC Hgb Hct MCV RDW Plt Count Lymph % (Auto) Lymph # Seg Neutrophils % Seg Neutrophils # Sodium Potassium 3.4 L Chloride 114.6 H Carbon Dioxide 18 L BUN 125 H Creatinine 7.5 H Glucose POC Glucose 112 H Calcium 5.7 L* Magnesium ALT < 5 L Total Creatine Kinase CK-MB (CK-2) Serum Total Protein Total Protein 5.3 L Albumin 2.7 L PEP Interpretation PTH Intact 348.9 H
[2016-12-13] MEDS: D5NS 0.2% 1,000 ML IV SCH (04:26)
[2016-12-13 07:54] LABS: BUN/Creatinine Ratio 13.7; Calcium 6.2 mg/dL (8.4-10.2); Chloride 114.7 mmol/L (98-107); Potassium 3.8 mmol/L (3.6-5.0)
[2016-12-13] MEDS ORDERED: HEPARIN/NS 5000 UNIT/500ML(CATH LAB) 500 ML IR ONE (09:28)
[2016-12-13] MEDS ORDERED: VERSED ONE (09:30)
[2016-12-13] MEDS ORDERED: NACL 0.9% 250ML 250 ML ONE (09:30)
[2016-12-13] MEDS ORDERED: ANCEF/STERILE WATER 2 GM/20 ML 2 GM/20 ML SYRINGE IV ONE (09:30)
--- NOTE | 2016-12-13 09:46 | Progress Note ---
Assessment and Plan Assessment: * Nonoliguric acute kidney injury secondary to ATN; ?history of CKD --FeNa>1%; dsDNA, ANCA, C3/C4 negative * Metabolic acidosis, improved * HIV * Septic shock - ?urosepsis * Klebsiella UTI * Hypernatremia * Hypocalcemia * Secondary hyperparathyroidism * Hypokalemia * Hx of psychiatric disorder Plan: * Vascular surgery consulted for vascath vs permcath placement * Initiate HD today for solute clearance, no fluid removal * Transfuse 1u pRBC with dialysis today * Await pending serologies * Continue Calcitriol 0.5mcg daily * Abx per ID/primary team * Strict I/O * Avoid potential nephrotoxins * Dose medications for renal function * Awaiting [facility] records to establish baseline renal function Subjective Date of service: 12/13/16 Principal diagnosis: HIV infection; UTI Interval history: Patient has no complaints today. Agreeable to dialysis. Objective - Vital Signs Vital signs: Vital Signs - 12hr 12/12/16 12/13/16 12/13/16 23:45 05:00 08:00 Temperature 98.6 F 98.2 F 98.5 F Pulse Rate [ 86 80 77 Left Radial] Respiratory 16 18 18 Rate Blood Pressure 118/73 115/70 108/63 [Left Arm] O2 Sat by Pulse 99 98 99 Oximetry - General Appearance General appearance: cachectic, frail EENT: ATNC Respiratory: Present: Clear to Ascultation Cardiology: regular, S1S2 Gastrointestinal: normal Integumentary: no rash Neurologic: alert and oriented x3 Musculoskeletal: other (no edema) Psychiatric: cooperative - Lab 12/10/16 04:00 12/13/16 05:01 Most recent lab results Calcium 6.2 mg/dL (8.4-10.2) L 12/13/16 05:01 Magnesium 1.60 mg/dL (1.7-2.3) L 12/10/16 15:36 Urine Creatinine 15.7 mg/dL (0.1-20.0) 12/08/16 21:12 Urine Sodium 159 mEq/L 12/08/16 21:12
[2016-12-13] MEDS ORDERED: NACL 0.9% 100 ML IV PRN ×2 (10:00→18:23)
[2016-12-13] MEDS ORDERED: NACL 0.9% 500 ML 500 ML IV ONE (10:00)
[2016-12-13] MEDS: SUBLIMAZE ONE ×2 (10:05→10:14)
[2016-12-13] MEDS: XYLOCAINE 2% INFILTRATI ONE ×2 (10:10→10:13)
[2016-12-13] MEDS: HEPARIN 10,000 UNITS/10 ML ONE ×2 (10:18→10:19)
--- NOTE | 2016-12-13 10:29 | Operative Report ---
Operative Report Operative Report: EXAM: ULTRASOUND AND FLUOROSCOPIC GUIDED PLACEMENT OF TUNNELED HEMODIALYSIS CATHETER CLINICAL INDICATION: PATIENT WITH END-STAGE RENAL DISEASE REQUIRING DIALYSIS ACCESS DATE: 12/13/2016 PROCEDURE: Following an explanation of the risks, benefits and alternatives; written informed consent was obtained. The patient was brought to the angiographic suite and placed in supine position on the examination table. Initial ultrasound evaluation of his right neck demonstrated widely patent right internal jugular vein. The patient's right neck and chest wall were prepped and draped in the usual sterile fashion. 1% lidocaine was used for anesthesia. Under ultrasound guidance, the right internal jugular vein was cannulated using a 7 cm 18-gauge needle. A 0.035 guidewire was then advanced into the IVC to document intravenous positioning under fluoroscopy. The needle was removed. An appropriate catheter exit site was chosen along the anterior lateral right chest wall. 1% lidocaine was used for anesthesia at the catheter exit site and along the tunnel tract. A Bard 23 cm glidepath tunneled hemodialysis catheter was then tunneled antegrade from the catheter exit site to the venotomy site. Following serial dilation over the guidewire under fluoroscopy, a 16 Romansh peel -away sheath was placed over the guidewire under fluoroscopy and advanced to the proximal right atrium. The guidewire and trocar were removed. The catheter was then placed through the peel-away sheath and the peel-away sheath removed. The catheter tip was positioned in the proximal right atrium. Both ports flushed and aspirated easily and were then locked with appropriate volumes of heparin. The venotomy was closed using 3-0 Vicryl suture and Dermabond. Dermabond was also applied to the catheter exit site. The patient tolerated the procedure well. There were no immediate post procedure complications. Conscious sedation was performed under the guidance of radiologic nursing. Continuous cardiopulmonary monitoring was utilized. IMPRESSION: 1) Ultrasound and fluoroscopic guided placement of tunneled hemodialysis catheter via the right internal jugular vein.
[2016-12-13] MEDS: DOXYCYCLINE HYCLATE 100 MG in NACL 0.9% 250ML 250 ML IV SCH ×2 (11:41→23:11)
--- NOTE | 2016-12-13 12:58 | Progress Note ---
Assessment and Plan - Patient Problems (1) Acute renal failure Current Visit: Yes Status: Acute Qualifiers: Acute renal failure type: A (2) HIV (human immunodeficiency virus infection) Current Visit: Yes Status: Acute (3) Sepsis associated hypotension Current Visit: Yes Status: Acute Subjective Date of service: 12/13/16 Principal diagnosis: Sepsis Syndrome; HIV infection; UTI Interval history: Seen and examined at bedside; 24 hour events reviewed; nursing and respiratory care staff consulted; no adverse overnight events reported to me; Objective Vital Signs - 12hr 12/13/16 12/13/16 12/13/16 05:00 08:00 11:31 Temperature 98.2 F 98.5 F 97.8 F Pulse Rate [ 71 Apical] Pulse Rate [ 71 From Monitor] Pulse Rate [ 80 77 Left Radial] Respiratory 18 18 18 Rate Blood Pressure 115/70 108/63 [Left Arm] Blood Pressure 125/74 [Right Arm] O2 Sat by Pulse 98 99 99 Oximetry Constitutional: no acute distress, alert Eyes: non-icteric, other (Sunken.) ENT: oropharynx moist Neck: supple, no lymphadenopathy Effort: normal Ascultation: Bilateral: clear, diminished breath sounds Cardiovascular: regular rate and rhythm Gastrointestinal: normoactive bowel sounds, soft, non-tender, non-distended Integumentary: normal Extremities: no cyanosis, no edema, pink and warm, pulses normal Neurologic: normal mental status, non-focal exam (grossly), pupils equal and round Psychiatric: depressed CBC and BMP: 12/10/16 04:00 12/13/16 05:01 Abnormal lab findings: Abnormal Labs 12/08/16 12/08/16 12/08/16 23:04 23:04 23:04 WBC RBC Hgb Hct MCV RDW Plt Count Lymph % (Auto) Lymph # Seg Neutrophils % Seg Neutrophils # Sodium 161 H* 161 H* Potassium 5.1 H Chloride 125.5 H Carbon Dioxide 11 L BUN 182 H Creatinine 9.7 H 9.7 H Glucose POC Glucose Calcium 7.3 L Magnesium ALT Total Creatine Kinase 275 H CK-MB (CK-2) 9.4 H Serum Total Protein Total Protein Albumin PEP Interpretation PTH Intact Lymph Enumerat CD4/CD8 % CD4 Cells Absolute CD4 Count % CD8 Cells Absolute CD8 Count 12/09/16 12/09/16 12/09/16 06:00 06:00 06:00 WBC RBC 2.24 L Hgb 7.1 L Hct 23.9 L MCV 95 H D RDW 16.1 H Plt Count Lymph % (Auto) 10.7 L Lymph # 1.1 L Seg Neutrophils % 85.2 H Seg Neutrophils # 9.1 H Sodium 156 H Potassium Chloride 120.8 H Carbon Dioxide 13 L BUN 169 H Creatinine 8.6 H Glucose 118 H POC Glucose Calcium 6.1 L D Magnesium ALT Total Creatine Kinase 298 H CK-MB (CK-2) 9.7 H Serum Total Protein Total Protein Albumin PEP Interpretation PTH Intact Lymph Enumerat CD4/CD8 % CD4 Cells Absolute CD4 Count % CD8 Cells Absolute CD8 Count 12/09/16 12/09/16 12/09/16 06:00 07:25 11:56 WBC RBC Hgb Hct MCV RDW Plt Count Lymph % (Auto) Lymph # Seg Neutrophils % Seg Neutrophils # Sodium Potassium Chloride Carbon Dioxide BUN Creatinine Glucose POC Glucose 120 H 106 H Calcium Magnesium ALT Total Creatine Kinase CK-MB (CK-2) Serum Total Protein 5.2 L Total Protein Albumin 2.7 L PEP Interpretation see below H PTH Intact Lymph Enumerat CD4/CD8 % CD4 Cells Absolute CD4 Count % CD8 Cells Absolute CD8 Count 12/09/16 12/09/16 12/10/16 13:56 23:15 04:00 WBC 11.5 H RBC 2.26 L Hgb 6.9 L Hct 21.1 L MCV RDW 16.1 H Plt Count 139 L Lymph % (Auto) Lymph # Seg Neutrophils % 70.6 H Seg Neutrophils # 8.1 H Sodium 157 H Potassium 3.5 L Chloride 121.3 H Carbon Dioxide 15 L BUN 164 H Creatinine 8.4 H Glucose 107 H POC Glucose Calcium 6.3 L Magnesium ALT Total Creatine Kinase CK-MB (CK-2) Serum Total Protein Total Protein Albumin PEP Interpretation PTH Intact Lymph Enumerat CD4/CD8 0.16 L % CD4 Cells 11 L Absolute CD4 Count 269 L % CD8 Cells 72 H Absolute CD8 Count 1684 H 12/10/16 12/10/16 12/10/16 04:00 12:06 15:36 WBC RBC Hgb Hct MCV RDW Plt Count Lymph % (Auto) Lymph # Seg Neutrophils % Seg Neutrophils # Sodium 156 H 155 H Potassium 3.1 L 3.2 L Chloride 117.8 H 116.9 H Carbon Dioxide 17 L 19 L BUN 149 H 138 H Creatinine 7.9 H 7.2 H Glucose 111 H POC Glucose 132 H Calcium 6.0 L 6.2 L Magnesium 1.60 L ALT Total Creatine Kinase CK-MB (CK-2) Serum Total Protein Total Protein Albumin PEP Interpretation PTH Intact Lymph Enumerat CD4/CD8 % CD4 Cells Absolute CD4 Count % CD8 Cells Absolute CD8 Count 12/11/16 12/11/16 12/11/16 08:50 11:13 13:53 WBC RBC Hgb Hct MCV RDW Plt Count Lymph % (Auto) Lymph # Seg Neutrophils % Seg Neutrophils # Sodium 155 H Potassium 3.2 L Chloride 115.0 H Carbon Dioxide 19 L BUN 128 H Creatinine 7.6 H Glucose 117 H POC Glucose 112 H Calcium 5.9 L* Magnesium ALT Total Creatine Kinase CK-MB (CK-2) Serum Total Protein Total Protein Albumin PEP Interpretation PTH Intact 348.9 H Lymph Enumerat CD4/CD8 % CD4 Cells Absolute CD4 Count % CD8 Cells Absolute CD8 Count 12/12/16 12/13/16 06:40 05:01 WBC RBC Hgb Hct MCV RDW Plt Count Lymph % (Auto) Lymph # Seg Neutrophils % Seg Neutrophils # Sodium 152 H Potassium 3.4 L Chloride 114.6 H 114.7 H Carbon Dioxide 18 L 16 L BUN 125 H 111 H Creatinine 7.5 H 8.1 H Glucose 140 H POC Glucose Calcium 5.7 L* 6.2 L Magnesium ALT < 5 L Total Creatine Kinase CK-MB (CK-2) Serum Total Protein Total Protein 5.3 L Albumin 2.7 L PEP Interpretation PTH Intact Lymph Enumerat CD4/CD8 % CD4 Cells Absolute CD4 Count % CD8 Cells Absolute CD8 Count
[2016-12-13] MEDS ORDERED: D5W 1,000 ML IV SCH (13:00)
--- NOTE | 2016-12-13 13:46 | Progress Note ---
Assessment and Plan Assessment and plan: 61 year old man with history of HIV, psych problems per EMS report was brought to the emergency room because he had not eaten in 2 days. In the ER na was noted to be 166, low BP and UTI. Septic shock - improved with Iv fluid - due to UTI - cont abx Sepsis -UTI - urine cultures reviewed, growing Klebsiella oxytoca -Antibiotics have been de- escalated to doxycycline, sensitivities reviewed and it is sensitive to it, to receive 5-7 day course, till december 14 CKD stage 5, ESRD, requiring HD creatinine has reached plateau, may require renal replacement vasc cath placed today, to resume HD Hypernatremia - improving with hypotonic solution - monitor with frequent BMP Metabolic acidosis - sp bicarb dip, improved Hypokalemia repleted Underlying psychiatric problem - no acute issue now, outpatient fup HIV -ID input appreciated, continue retrovirals, CD4 counts reviewed, currently 269 Anemia of chronic disease, requiring transfusions PRBC ordered, fup post tx hg Moderate Malnutrition Press Operator Helper consult, encourage PO intake of balanced diet Dispo: back to [facility], when acute issues are resolved, and HD chair time is arranged History Interval history: Carloz states that he feels well, denies nausea, denies chest pain, denies shortness of breath. Hospitalist Physical - Physical exam Narrative exam: General: Cachectic, nontoxic appearance HEENT: MMM, EOMI cardiac: S1-S2 heard lungs: clear to auscultation, abdomen: soft, nontender, nondistended bowel sounds positive extremities: no edema clubbing or cyanosis Skin: no rash or lesion Neuro: no focal deficit Psych: appropriate behavior and mood, cognition intact - Constitutional Vitals: Temp Pulse Resp BP Pulse Ox 98.4 F 61 18 110/66 99 12/13/16 13:15 12/13/16 13:30 12/13/16 13:15 12/13/16 13:30 12/13/16 11:31 General appearance: Present: no acute distress, cachectic, other (keeps head and body covered with blankets) Results - Labs CBC & Chem 7: 12/10/16 04:00 12/13/16 05:01 Labs: Laboratory Last Values WBC 11.5 K/mm3 (4.5-11.0) H 12/10/16 04:00 RBC 2.26 M/mm3 (3.65-5.03) L 12/10/16 04:00 Hgb 6.9 gm/dl (11.8-15.2) L 12/10/16 04:00 Hct 21.1 % (35.5-45.6) L 12/10/16 04:00 MCV 94 fl (84-94) 12/10/16 04:00 MCH 31 pg (28-32) 12/10/16 04:00 MCHC 33 % (32-34) 12/10/16 04:00 RDW 16.1 % (13.2-15.2) H 12/10/16 04:00 Plt Count 139 K/mm3 (140-440) L 12/10/16 04:00 Lymph % (Auto) 21.7 % (13.4-35.0) 12/10/16 04:00 Luce % (Auto) 6.0 % (0.0-7.3) 12/10/16 04:00 Eos % (Auto) 1.2 % (0.0-4.3) 12/10/16 04:00 Baso % (Auto) 0.5 % (0.0-1.8) 12/10/16 04:00 Lymph # 2.5 K/mm3 (1.2-5.4) 12/10/16 04:00 Luce # 0.7 K/mm3 (0.0-0.8) 12/10/16 04:00 Eos # 0.1 K/mm3 (0.0-0.4) 12/10/16 04:00 Baso # 0.1 K/mm3 (0.0-0.1) 12/10/16 04:00 Seg Neutrophils % 70.6 % (40.0-70.0) H 12/10/16 04:00 Seg Neutrophils # 8.1 K/mm3 (1.8-7.7) H 12/10/16 04:00 Abs Lymphs (Manual) 2301 cells/uL (850-3900) 12/09/16 23:15 Sodium 152 mmol/L (137-145) H 12/13/16 05:01 Potassium 3.8 mmol/L (3.6-5.0) 12/13/16 05:01 Chloride 114.7 mmol/L (98-107) H 12/13/16 05:01 Carbon Dioxide 16 mmol/L (22-30) L 12/13/16 05:01 Anion Gap 25 mmol/L 12/13/16 05:01 BUN 111 mg/dL (9-20) H 12/13/16 05:01 Creatinine 8.1 mg/dL (0.8-1.5) H 12/13/16 05:01 Estimated GFR 7 ml/min 12/13/16 05:01 BUN/Creatinine Ratio 13.70 % 12/13/16 05:01 Glucose 140 mg/dL (75-100) H 12/13/16 05:01 POC Glucose 112 (70-105) H 12/11/16 11:13 Lactic Acid 1.90 mmol/L (0.7-2.0) 12/08/16 20:51 Calcium 6.2 mg/dL (8.4-10.2) L 12/13/16 05:01 Magnesium 1.60 mg/dL (1.7-2.3) L 12/10/16 15:36 Total Bilirubin 0.30 mg/dL (0.1-1.2) 12/12/16 06:40 AST 21 units/L (5-40) 12/12/16 06:40 ALT < 5 units/L (7-56) L 12/12/16 06:40 Alkaline Phosphatase 62 units/L (35-129) 12/12/16 06:40 Total Creatine Kinase 298 units/L (55-170) H 12/09/16 06:00 CK-MB (CK-2) 9.7 ng/mL (0.0-4.0) H 12/09/16 06:00 CK-MB (CK-2) Rel Index 3.2 (0-4) 12/09/16 06:00 Troponin T 0.016 ng/mL (0.00-0.029) 12/09/16 06:00 Serum Total Protein 5.2 g/dL (6.1-8.1) L 12/09/16 06:00 Total Protein 5.3 g/dL (6.3-8.2) L 12/12/16 06:40 Albumin 2.7 g/dL (3.9-5) L 12/12/16 06:40 Albumin/Globulin Ratio 1.0 % 12/12/16 06:40 Skeaj-2-Xfymxmlou 0.3 g/dL (0.2-0.3) 12/09/16 06:00 Dtlnb-4-Deedrjkpy 0.5 g/dL (0.5-0.9) 12/09/16 06:00 Beta Globulins 0.3 g/dL (0.2-0.5) 12/09/16 06:00 Gamma Globulins 1.2 g/dL (0.8-1.7) 12/09/16 06:00 Abnorm Protein Band 1 see below 12/09/16 06:00 PEP Interpretation see below H 12/09/16 06:00 TSH 1.560 mlU/mL (0.270-4.200) 12/08/16 20:51 PTH Intact 348.9 pg/mL (15-65) H 12/11/16 13:53 Urine Color Straw (Yellow) 12/08/16 21:12 Urine Turbidity Turbid (Clear) 12/08/16 21:12 Urine pH 8.0 (5.0-7.0) H 12/08/16 21:12 Ur Specific [place] 1.010 (1.003-1.030) 12/08/16 21:12 Urine Protein >500 mg/dL (Negative) 12/08/16 21:12 Urine Glucose (UA) Negative mg/dL (Negative) 12/08/16 21:12 Urine Ketones Negative mg/dL (Negative) 12/08/16 21:12 Urine Blood Large (Negative) A 12/08/16 21:12 Urine Nitrite Positive (Negative) 12/08/16 21:12 Ur Reducing Substances Not Reportable 12/08/16 21:12 Urine Bilirubin Negative (Negative) 12/08/16 21:12 Urine Ictotest Not Reportable 12/08/16 21:12 Urine Urobilinogen < 2.0 mg/dL (<2.0) 12/08/16 21:12 Ur Leukocyte Esterase Large (Negative) 12/08/16 21:12 Urine WBC (Auto) > 182.0 /HPF (0.0-6.0) H 12/08/16 21:12 Urine RBC (Auto) > 182.0 /HPF (0.0-6.0) 12/08/16 21:12 U Epithel Cells (Auto) 14.0 /HPF (0-13.0) H 12/08/16 21:12 Urine Bacteria (Auto) 4+ /HPF (Negative) 12/08/16 21:12 Urine Mucus 3+ /HPF 12/08/16 21:12 Urine Creatinine 15.7 mg/dL (0.1-20.0) 12/08/16 21:12 Urine Sodium 159 mEq/L 12/08/16 21:12 Fraction Sodium Excret 65.4 12/08/16 21:12 VAN Screen Negative (Negative) 12/09/16 01:00 Proteinase 3 (PR3) Ab <1.0 AI (<1.0) 12/09/16 01:00 Myeloperoxidase Ab <1.0 AI (<1.0) 12/09/16 01:00 Double Strand DNA Ab <1 IU/mL (<=4) 12/09/16 01:00 Complement C3 109 mg/dL (90-180) 12/09/16 01:00 Complement C4 29 mg/dL (16-47) 12/09/16 01:00 Lymph Enumerat CD4/CD8 0.16 (0.86-5.00) L 12/09/16 23:15 % CD3 Cells 84 % (57-85) 12/09/16 23:15 Absolute CD3 Count 1924 cells/uL (840-3060) 12/09/16 23:15 % CD4 Cells 11 % (30-61) L 12/09/16 23:15 Absolute CD4 Count 269 cells/uL (490-1740) L 12/09/16 23:15 % CD8 Cells 72 % (12-42) H 12/09/16 23:15 Absolute CD8 Count 1684 cells/uL (180-1170) H 12/09/16 23:15 % CD19 Cells 6 % (6-29) 12/09/16 23:15 Absolute CD19 Count 138 cells/uL (110-660) 12/09/16 23:15 Hep B Core IgM Ab Non-reactive (NonReactive) 12/08/16 20:51 Hepatitis C Antibody Non-reactive (NonReactive) 12/08/16 20:51
[2016-12-13] MEDS: HEPARIN IV PRN (15:05)
[2016-12-13] MEDS ORDERED: NACL 0.9 (PRIMING MACHINE ONLY DIALYSIS) MC ONE (16:01)
[2016-12-13] MEDS: ZIAGEN PO SCH ×2 (18:31→23:12)
[2016-12-13] MEDS: NORVIR PO SCH ×2 (18:32→23:12)
[2016-12-13] MEDS: ROCALTROL PO SCH (18:32)
[2016-12-13] MEDS: PREZISTA PO SCH ×2 (18:32→23:13)
[2016-12-13] MEDS: VIRAMUNE PO SCH ×2 (18:33→23:12)
[2016-12-13] MEDS: OSCAL PO SCH ×2 (18:40→23:13)
[2016-12-13] MEDS: PROTONIX PO SCH (18:40)
[2016-12-13] MEDS ORDERED: NACL 0.9% 500 ML 500 ML IV SCH (19:00)
--- NOTE | 2016-12-14 07:43 | Progress Note ---
Assessment and Plan Assessment and plan: 61 year old man with history of HIV, psych problems per EMS report was brought to the emergency room because he had not eaten in 2 days. In the ER na was noted to be 166, low BP and UTI. Septic shock - improved with Iv fluid - due to UTI - cont abx Till December 14 Sepsis -UTI - urine cultures reviewed, growing Klebsiella oxytoca -Antibiotics have been de- escalated to doxycycline, sensitivities reviewed and it is sensitive to it, to receive 5-7 day course, till december 14 CKD stage 5, ESRD, requiring HD creatinine has reached plateau, may require renal replacement vasc cath placed 12/13/16, continue HD Hypernatremia - resolved with hypotonic solution Metabolic acidosis - sp bicarb dip, resolved Hypokalemia repleted Underlying psychiatric problem - no acute issue now, outpatient fup HIV -ID input appreciated, continue retrovirals, CD4 counts reviewed, currently 269 Anemia of chronic disease, requiring transfusions PRBC transfused on 12/13 Moderate Malnutrition [employer] consult, encourage PO intake of balanced diet Dispo: back to [facility], when acute issues are resolved, and HD chair time is arranged History Interval history: Carloz states that he feels well, denies nausea, denies chest pain, denies shortness of breath. Hospitalist Physical - Physical exam Narrative exam: General: Cachectic, nontoxic appearance HEENT: MMM, EOMI cardiac: S1-S2 heard lungs: clear to auscultation, abdomen: soft, nontender, nondistended bowel sounds positive extremities: no edema clubbing or cyanosis Skin: no rash or lesion Neuro: no focal deficit Psych: appropriate behavior and mood, cognition intact - Constitutional Vitals: Temp Pulse Resp BP Pulse Ox 99.5 F 78 20 106/64 99 12/14/16 07:09 12/14/16 07:09 12/14/16 07:09 12/14/16 07:09 12/14/16 07:09 General appearance: Present: no acute distress, cachectic, other (keeps head and body covered with blankets) Results - Labs CBC & Chem 7: 12/10/16 04:00 12/14/16 07:04 Labs: Laboratory Last Values WBC 11.5 K/mm3 (4.5-11.0) H 12/10/16 04:00 RBC 2.26 M/mm3 (3.65-5.03) L 12/10/16 04:00 Hgb 6.9 gm/dl (11.8-15.2) L 12/10/16 04:00 Hct 21.1 % (35.5-45.6) L 12/10/16 04:00 MCV 94 fl (84-94) 12/10/16 04:00 MCH 31 pg (28-32) 12/10/16 04:00 MCHC 33 % (32-34) 12/10/16 04:00 RDW 16.1 % (13.2-15.2) H 12/10/16 04:00 Plt Count 139 K/mm3 (140-440) L 12/10/16 04:00 Lymph % (Auto) 21.7 % (13.4-35.0) 12/10/16 04:00 Bennett % (Auto) 6.0 % (0.0-7.3) 12/10/16 04:00 Eos % (Auto) 1.2 % (0.0-4.3) 12/10/16 04:00 Baso % (Auto) 0.5 % (0.0-1.8) 12/10/16 04:00 Lymph # 2.5 K/mm3 (1.2-5.4) 12/10/16 04:00 Bennett # 0.7 K/mm3 (0.0-0.8) 12/10/16 04:00 Eos # 0.1 K/mm3 (0.0-0.4) 12/10/16 04:00 Baso # 0.1 K/mm3 (0.0-0.1) 12/10/16 04:00 Seg Neutrophils % 70.6 % (40.0-70.0) H 12/10/16 04:00 Seg Neutrophils # 8.1 K/mm3 (1.8-7.7) H 12/10/16 04:00 Abs Lymphs (Manual) 2301 cells/uL (850-3900) 12/09/16 23:15 Sodium 152 mmol/L (137-145) H 12/13/16 05:01 Potassium 3.8 mmol/L (3.6-5.0) 12/13/16 05:01 Chloride 114.7 mmol/L (98-107) H 12/13/16 05:01 Carbon Dioxide 16 mmol/L (22-30) L 12/13/16 05:01 Anion Gap 25 mmol/L 12/13/16 05:01 BUN 111 mg/dL (9-20) H 12/13/16 05:01 Creatinine 8.1 mg/dL (0.8-1.5) H 12/13/16 05:01 Estimated GFR 7 ml/min 12/13/16 05:01 BUN/Creatinine Ratio 13.70 % 12/13/16 05:01 Glucose 140 mg/dL (75-100) H 12/13/16 05:01 POC Glucose 149 (70-105) H 12/13/16 17:36 Lactic Acid 1.90 mmol/L (0.7-2.0) 12/08/16 20:51 Calcium 6.2 mg/dL (8.4-10.2) L 12/13/16 05:01 Magnesium 1.60 mg/dL (1.7-2.3) L 12/10/16 15:36 Total Bilirubin 0.30 mg/dL (0.1-1.2) 12/12/16 06:40 AST 21 units/L (5-40) 12/12/16 06:40 ALT < 5 units/L (7-56) L 12/12/16 06:40 Alkaline Phosphatase 62 units/L (35-129) 12/12/16 06:40 Total Creatine Kinase 298 units/L (55-170) H 12/09/16 06:00 CK-MB (CK-2) 9.7 ng/mL (0.0-4.0) H 12/09/16 06:00 CK-MB (CK-2) Rel Index 3.2 (0-4) 12/09/16 06:00 Troponin T 0.016 ng/mL (0.00-0.029) 12/09/16 06:00 Serum Total Protein 5.2 g/dL (6.1-8.1) L 12/09/16 06:00 Total Protein 5.3 g/dL (6.3-8.2) L 12/12/16 06:40 Albumin 2.7 g/dL (3.9-5) L 12/12/16 06:40 Albumin/Globulin Ratio 1.0 % 12/12/16 06:40 Sszrf-2-Uqxsfnhad 0.3 g/dL (0.2-0.3) 12/09/16 06:00 Jakxw-8-Kuulyynee 0.5 g/dL (0.5-0.9) 12/09/16 06:00 Beta Globulins 0.3 g/dL (0.2-0.5) 12/09/16 06:00 Gamma Globulins 1.2 g/dL (0.8-1.7) 12/09/16 06:00 Abnorm Protein Band 1 see below 12/09/16 06:00 PEP Interpretation see below H 12/09/16 06:00 TSH 1.560 mlU/mL (0.270-4.200) 12/08/16 20:51 PTH Intact 348.9 pg/mL (15-65) H 12/11/16 13:53 Urine Color Straw (Yellow) 12/08/16 21:12 Urine Turbidity Turbid (Clear) 12/08/16 21:12 Urine pH 8.0 (5.0-7.0) H 12/08/16 21:12 Ur Specific [place] 1.010 (1.003-1.030) 12/08/16 21:12 Urine Protein >500 mg/dL (Negative) 12/08/16 21:12 Urine Glucose (UA) Negative mg/dL (Negative) 12/08/16 21:12 Urine Ketones Negative mg/dL (Negative) 12/08/16 21:12 Urine Blood Large (Negative) A 12/08/16 21:12 Urine Nitrite Positive (Negative) 12/08/16 21:12 Ur Reducing Substances Not Reportable 12/08/16 21:12 Urine Bilirubin Negative (Negative) 12/08/16 21:12 Urine Ictotest Not Reportable 12/08/16 21:12 Urine Urobilinogen < 2.0 mg/dL (<2.0) 12/08/16 21:12 Ur Leukocyte Esterase Large (Negative) 12/08/16 21:12 Urine WBC (Auto) > 182.0 /HPF (0.0-6.0) H 12/08/16 21:12 Urine RBC (Auto) > 182.0 /HPF (0.0-6.0) 12/08/16 21:12 U Epithel Cells (Auto) 14.0 /HPF (0-13.0) H 12/08/16 21:12 Urine Bacteria (Auto) 4+ /HPF (Negative) 12/08/16 21:12 Urine Mucus 3+ /HPF 12/08/16 21:12 Urine Creatinine 15.7 mg/dL (0.1-20.0) 12/08/16 21:12 Urine Sodium 159 mEq/L 12/08/16 21:12 Fraction Sodium Excret 65.4 12/08/16 21:12 VAN Screen Negative (Negative) 12/09/16 01:00 Proteinase 3 (PR3) Ab <1.0 AI (<1.0) 12/09/16 01:00 Myeloperoxidase Ab <1.0 AI (<1.0) 12/09/16 01:00 Double Strand DNA Ab <1 IU/mL (<=4) 12/09/16 01:00 Complement C3 109 mg/dL (90-180) 12/09/16 01:00 Complement C4 29 mg/dL (16-47) 12/09/16 01:00 Lymph Enumerat CD4/CD8 0.16 (0.86-5.00) L 12/09/16 23:15 % CD3 Cells 84 % (57-85) 12/09/16 23:15 Absolute CD3 Count 1924 cells/uL (840-3060) 12/09/16 23:15 % CD4 Cells 11 % (30-61) L 12/09/16 23:15 Absolute CD4 Count 269 cells/uL (490-1740) L 12/09/16 23:15 % CD8 Cells 72 % (12-42) H 12/09/16 23:15 Absolute CD8 Count 1684 cells/uL (180-1170) H 12/09/16 23:15 % CD19 Cells 6 % (6-29) 12/09/16 23:15 Absolute CD19 Count 138 cells/uL (110-660) 12/09/16 23:15 Hep B Core IgM Ab Non-reactive (NonReactive) 12/08/16 20:51 Hepatitis C Antibody Non-reactive (NonReactive) 12/08/16 20:51 Blood Type O POSITIVE 12/13/16 10:58 DARON Antibody Screen Negative 12/13/16 10:58 Crossmatch See Detail 12/13/16 10:58
[2016-12-14 08:17] LABS: BUN/Creatinine Ratio 10.81; Calcium 6.6 mg/dL (8.4-10.2); Chloride 108.1 mmol/L (98-107); Potassium 3.9 mmol/L (3.6-5.0)
[2016-12-14] MEDS: DOXYCYCLINE HYCLATE 100 MG in NACL 0.9% 250ML 250 ML IV SCH ×2 (10:49→23:05)
[2016-12-14] MEDS: PROTONIX PO SCH (10:50)
[2016-12-14] MEDS: OSCAL PO SCH ×2 (10:50→23:06)
[2016-12-14] MEDS: VIRAMUNE PO SCH ×2 (10:50→23:06)
[2016-12-14] MEDS: PREZISTA PO SCH ×2 (10:50→23:06)
[2016-12-14] MEDS: NORVIR PO SCH ×2 (10:50→23:06)
[2016-12-14] MEDS: ROCALTROL PO SCH (10:50)
[2016-12-14] MEDS: ZIAGEN PO SCH ×2 (10:51→23:06)
[2016-12-14] MEDS: ZOFRAN IV PRN (11:15)
[2016-12-14] MEDS ORDERED: NACL 0.9 (PRIMING MACHINE ONLY DIALYSIS) MC ONE (11:16)
--- NOTE | 2016-12-14 12:12 | Progress Note ---
Assessment and Plan - Patient Problems (1) HIV (human immunodeficiency virus infection) Current Visit: Yes Status: Acute Plan to address problem: 1. CD4 is 269. No indication for OI prophylaxis. 2. Continue HAART at current doses. 3. Will sign off. Please call again if there are additional concerns. (2) UTI (urinary tract infection) Current Visit: Yes Status: Acute Qualifiers: Urinary tract infection type: acute cystitis Hematuria presence: without hematuria Indwelling urinary catheter type: I Encounter type: E Qualified Code(s): N30.00 - Acute cystitis without hematuria Plan to address problem: 1. Complete today's doses of Doxycycline (previously Zosyn) then discontinue. Subjective Date of service: 12/14/16 Principal diagnosis: HIV infection; UTI Interval history: Remains afebrile. No new clinical issues. He has many proverbial statements today. Says he could write a book of them. Objective - Constitutional Vitals: Vital Signs Temp Pulse Resp BP Pulse Ox 98.1 F 73 20 109/60 99 12/14/16 10:30 12/14/16 11:30 12/14/16 10:30 12/14/16 11:30 12/14/16 07:09 Temperature -Last 24 Hours Temperature 98.1 F Temperature 99.5 F Temperature 99.3 F Temperature 100.1 F Temperature 99.0 F Temperature 98.8 F Temperature 99.0 F Temperature 99.5 F Temperature 98.4 F Temperature 98.6 F Temperature 98.4 F Temperature 98.7 F Temperature 98.4 F Temperature 97.9 F Temperature 98.4 F General appearance: Present: no acute distress, cachectic - EENT Eyes: no conjunctival injection ENT: edentulous, no thrush - Respiratory Respiratory effort: normal Respiratory: bilateral: CTA - Cardiovascular Rhythm: regular Heart Sounds: Present: S1 & S2 Extremities: No edema - Gastrointestinal General gastrointestinal: Present: soft, non-distended - Integumentary Integumentary: no rash - Additional findings Additional findings: right subclavian vascath - Labs CBC & Chem 7: 12/10/16 04:00 12/14/16 07:04 Labs: Abnormal lab results 12/13/16 12/13/16 12/14/16 Range/Units 10:58 17:36 07:04 Chloride 108.1 H (98-107) mmol/L Carbon Dioxide 21 L (22-30) mmol/L BUN 66 H (9-20) mg/dL Creatinine 6.1 H (0.8-1.5) mg/dL POC Glucose 149 H (70-105) Calcium 6.6 L (8.4-10.2) mg/dL Crossmatch See Detail Microbiology 12/08/16 21:59 Peripheral/Venous Blood Culture - Final NO GROWTH AFTER 5 DAYS 12/08/16 20:51 Peripheral/Venous Blood Culture - Final NO GROWTH AFTER 5 DAYS 12/10/16 04:09 Urine,Clean Catch Urine Culture - Final 12/08/16 21:26 Urine,Catheterized - Indwelling Catheter Urine Culture - Final Klebsiella Oxytoca#2 12/10/16 07:26 Serum Cryptococcal Antigen - Final Active Medications Abacavir Sulfate (Ziagen) 300 mg PO BID [facility] Last Admin: 12/14/16 10:51 Dose: Not Given Acetaminophen (Tylenol) 650 mg PO Q4H PRN PRN Reason: Pain MILD(1-3)/Fever >100.5/LUDWIG Last Admin: 12/14/16 00:07 Dose: 650 mg Calcitriol (Rocaltrol) 0.5 mcg PO QDAY [facility] Last Admin: 12/14/16 10:50 Dose: Not Given Calcium Carbonate/Glycine (Oscal) 1,250 mg PO BID [facility] Last Admin: 12/14/16 10:50 Dose: Not Given Darunavir (Prezista) 600 mg PO BID [facility] Last Admin: 12/14/16 10:50 Dose: Not Given Epoetin Tru (Epogen) 20,000 unit IV BEKAH PRN PRN Reason: hemodialysis Last Admin: 12/13/16 15:05 Dose: 20,000 unit Heparin Sodium (Porcine) (Heparin) 5,000 unit IV BEKAH PRN PRN Reason: hemodialysis Last Admin: 12/13/16 15:05 Dose: 5,000 unit Doxycycline Hyclate 100 mg/ (Sodium Chloride) 250 mls @ 250 mls/hr IV Q12HR JOSE PRN Reason: Protocol Last Admin: 12/14/16 10:49 Dose: Not Given Sodium Chloride (Nacl 0.9%) 100 mls @ 999 mls/hr IV BEKAH PRN PRN Reason: Hypotension Sodium Chloride (Nacl 0.9%) 100 mls @ 999 mls/hr IV BEKAH PRN PRN Reason: Hypotension Nevirapine (Viramune) 200 mg PO BID [facility] Last Admin: 12/14/16 10:50 Dose: Not Given Ondansetron HCl (Zofran) 4 mg IV Q4H PRN PRN Reason: N/V unrelieved by Chris Last Admin: 12/14/16 11:15 Dose: 4 mg Pantoprazole Sodium (Protonix) 40 mg PO DAILY [facility] Last Admin: 12/14/16 10:50 Dose: Not Given Ritonavir (Norvir) 100 mg PO BID [facility] Last Admin: 12/14/16 10:50 Dose: Not Given
--- NOTE | 2016-12-14 13:33 | Progress Note ---
Assessment and Plan Assessment: * ESRD vs Nonoliguric acute kidney injury secondary to ATN; ?history of CKD --FeNa>1%; dsDNA, ANCA, C3/C4 negative * Metabolic acidosis, improved * HIV * Septic shock - ?urosepsis * Klebsiella UTI * Hypernatremia * Hypocalcemia * Secondary hyperparathyroidism * Hypokalemia * Hx of psychiatric disorder Plan: * HD today for solute clearance, no fluid removal and QMWF * likely esrd, questionable HIVAN * prn pRBC with dialysis * Await pending serologies * Continue Calcitriol 0.5mcg daily * Abx per ID/primary team * Strict I/O * Avoid potential nephrotoxins * Dose medications for renal function * Awaiting [place] records to establish baseline renal function * will need outpatient dialysis placement Subjective Date of service: 12/14/16 Principal diagnosis: HIV infection; UTI Interval history: resting well in bed, no acute events noted Objective - Exam Narrative Exam: General appearance: cachectic, frail EENT: ATNC Respiratory: Present: Clear to Ascultation Cardiology: regular, S1S2 Gastrointestinal: normal Integumentary: no rash Neurologic: alert and oriented x3 Musculoskeletal: other (no edema) Psychiatric: cooperative - Vital Signs Vital signs: Vital Signs - 12hr 12/14/16 12/14/16 12/14/16 07:00 07:09 10:30 Temperature 99.3 F 99.5 F 98.1 F Pulse Rate 83 Pulse Rate [ 86 Apical] Pulse Rate [ 78 Left Radial] Respiratory 20 20 20 Rate Blood Pressure 123/71 Blood Pressure 106/64 [Left Arm] Blood Pressure 117/62 [Right Arm] O2 Sat by Pulse 99 99 Oximetry 12/14/16 12/14/16 12/14/16 10:45 11:00 11:10 Temperature Pulse Rate 72 72 86 Pulse Rate [ Apical] Pulse Rate [ Left Radial] Respiratory Rate Blood Pressure 122/87 104/60 117/64 Blood Pressure [Left Arm] Blood Pressure [Right Arm] O2 Sat by Pulse Oximetry 12/14/16 12/14/16 12/14/16 11:15 11:30 11:45 Temperature Pulse Rate 77 73 74 Pulse Rate [ Apical] Pulse Rate [ Left Radial] Respiratory Rate Blood Pressure 108/60 109/60 103/53 Blood Pressure [Left Arm] Blood Pressure [Right Arm] O2 Sat by Pulse Oximetry 12/14/16 12/14/16 12/14/16 12:00 12:15 12:30 Temperature Pulse Rate 81 84 74 Pulse Rate [ Apical] Pulse Rate [ Left Radial] Respiratory Rate Blood Pressure 101/58 114/56 107/58 Blood Pressure [Left Arm] Blood Pressure [Right Arm] O2 Sat by Pulse Oximetry 12/14/16 12/14/16 12/14/16 12:45 13:00 13:15 Temperature Pulse Rate 74 99 H 84 Pulse Rate [ Apical] Pulse Rate [ Left Radial] Respiratory Rate Blood Pressure 102/57 110/56 129/55 Blood Pressure [Left Arm] Blood Pressure [Right Arm] O2 Sat by Pulse Oximetry - Lab 12/10/16 04:00 12/14/16 07:04 Most recent lab results Calcium 6.6 mg/dL (8.4-10.2) L 12/14/16 07:04 Magnesium 1.60 mg/dL (1.7-2.3) L 12/10/16 15:36 Urine Creatinine 15.7 mg/dL (0.1-20.0) 12/08/16 21:12 Urine Sodium 159 mEq/L 12/08/16 21:12
[2016-12-14] MEDS: HEPARIN IV PRN (13:50)
--- NOTE | 2016-12-14 15:06 | Progress Note ---
Assessment and Plan Patient weak, Resting on room air. Afebrile.No acute respiratory distress. - Patient Problems (1) Sepsis associated hypotension Current Visit: Yes Status: Acute Plan to address problem: Patients blood pressure improved. Patient is on I/V Doxycycline. Antibiotic coverage as per infectious diseases. (2) Acute renal failure Current Visit: Yes Status: Acute Plan to address problem: Management as per nephrology. (3) HIV (human immunodeficiency virus infection) Current Visit: Yes Status: Acute Plan to address problem: Management as per primary care and infectious diseases. (4) Hypernatremia Current Visit: Yes Status: Acute Plan to address problem: Improved. Na + 145. (5) Hypothermia Current Visit: Yes Status: Acute Plan to address problem: Improved. Present temparature 98.6F. Subjective Date of service: 12/14/16 Principal diagnosis: HIV infection; UTI Interval history: Patient weak. Resting on room air. Afebrile.No acute respiratory distress. . Objective Vital Signs - 12hr 12/14/16 12/14/16 12/14/16 07:00 07:09 10:30 Temperature 99.3 F 99.5 F 98.1 F Pulse Rate 83 Pulse Rate [ 86 Apical] Pulse Rate [ 78 Left Radial] Respiratory 20 20 20 Rate Blood Pressure 123/71 Blood Pressure 106/64 [Left Arm] Blood Pressure 117/62 [Right Arm] O2 Sat by Pulse 99 99 Oximetry 12/14/16 12/14/16 12/14/16 10:45 11:00 11:10 Temperature Pulse Rate 72 72 86 Pulse Rate [ Apical] Pulse Rate [ Left Radial] Respiratory Rate Blood Pressure 122/87 104/60 117/64 Blood Pressure [Left Arm] Blood Pressure [Right Arm] O2 Sat by Pulse Oximetry 12/14/16 12/14/16 12/14/16 11:15 11:30 11:45 Temperature Pulse Rate 77 73 74 Pulse Rate [ Apical] Pulse Rate [ Left Radial] Respiratory Rate Blood Pressure 108/60 109/60 103/53 Blood Pressure [Left Arm] Blood Pressure [Right Arm] O2 Sat by Pulse Oximetry 12/14/16 12/14/16 12/14/16 12:00 12:15 12:30 Temperature Pulse Rate 81 84 74 Pulse Rate [ Apical] Pulse Rate [ Left Radial] Respiratory Rate Blood Pressure 101/58 114/56 107/58 Blood Pressure [Left Arm] Blood Pressure [Right Arm] O2 Sat by Pulse Oximetry 12/14/16 12/14/16 12/14/16 12:45 13:00 13:15 Temperature Pulse Rate 74 99 H 84 Pulse Rate [ Apical] Pulse Rate [ Left Radial] Respiratory Rate Blood Pressure 102/57 110/56 129/55 Blood Pressure [Left Arm] Blood Pressure [Right Arm] O2 Sat by Pulse Oximetry 12/14/16 12/14/16 12/14/16 13:30 13:45 14:00 Temperature 98.6 F Pulse Rate 82 90 95 H Pulse Rate [ Apical] Pulse Rate [ Left Radial] Respiratory 20 Rate Blood Pressure 115/79 113/70 118/70 Blood Pressure [Left Arm] Blood Pressure [Right Arm] O2 Sat by Pulse Oximetry Constitutional: no acute distress, alert Eyes: non-icteric, other (Sunken.) ENT: oropharynx moist Neck: supple, no lymphadenopathy Effort: normal Ascultation: Bilateral: diminished breath sounds Cardiovascular: regular rate and rhythm Gastrointestinal: normoactive bowel sounds, soft, non-tender, non-distended Integumentary: normal Extremities: no cyanosis, no edema, pink and warm, pulses normal Neurologic: normal mental status, non-focal exam (grossly), pupils equal and round Psychiatric: depressed CBC and BMP: 12/10/16 04:00 12/14/16 07:04 Abnormal lab findings: Abnormal Labs 12/08/16 12/08/16 12/08/16 23:04 23:04 23:04 WBC RBC Hgb Hct MCV RDW Plt Count Lymph % (Auto) Lymph # Seg Neutrophils % Seg Neutrophils # Sodium 161 H* 161 H* Potassium 5.1 H Chloride 125.5 H Carbon Dioxide 11 L BUN 182 H Creatinine 9.7 H 9.7 H Glucose POC Glucose Calcium 7.3 L Magnesium ALT Total Creatine Kinase 275 H CK-MB (CK-2) 9.4 H Serum Total Protein Total Protein Albumin PEP Interpretation PTH Intact Lymph Enumerat CD4/CD8 % CD4 Cells Absolute CD4 Count % CD8 Cells Absolute CD8 Count Crossmatch 12/09/16 12/09/16 12/09/16 06:00 06:00 06:00 WBC RBC 2.24 L Hgb 7.1 L Hct 23.9 L MCV 95 H D RDW 16.1 H Plt Count Lymph % (Auto) 10.7 L Lymph # 1.1 L Seg Neutrophils % 85.2 H Seg Neutrophils # 9.1 H Sodium 156 H Potassium Chloride 120.8 H Carbon Dioxide 13 L BUN 169 H Creatinine 8.6 H Glucose 118 H POC Glucose Calcium 6.1 L D Magnesium ALT Total Creatine Kinase 298 H CK-MB (CK-2) 9.7 H Serum Total Protein Total Protein Albumin PEP Interpretation PTH Intact Lymph Enumerat CD4/CD8 % CD4 Cells Absolute CD4 Count % CD8 Cells Absolute CD8 Count Crossmatch 12/09/16 12/09/16 12/09/16 06:00 07:25 11:56 WBC RBC Hgb Hct MCV RDW Plt Count Lymph % (Auto) Lymph # Seg Neutrophils % Seg Neutrophils # Sodium Potassium Chloride Carbon Dioxide BUN Creatinine Glucose POC Glucose 120 H 106 H Calcium Magnesium ALT Total Creatine Kinase CK-MB (CK-2) Serum Total Protein 5.2 L Total Protein Albumin 2.7 L PEP Interpretation see below H PTH Intact Lymph Enumerat CD4/CD8 % CD4 Cells Absolute CD4 Count % CD8 Cells Absolute CD8 Count Crossmatch 12/09/16 12/09/16 12/10/16 13:56 23:15 04:00 WBC 11.5 H RBC 2.26 L Hgb 6.9 L Hct 21.1 L MCV RDW 16.1 H Plt Count 139 L Lymph % (Auto) Lymph # Seg Neutrophils % 70.6 H Seg Neutrophils # 8.1 H Sodium 157 H Potassium 3.5 L Chloride 121.3 H Carbon Dioxide 15 L BUN 164 H Creatinine 8.4 H Glucose 107 H POC Glucose Calcium 6.3 L Magnesium ALT Total Creatine Kinase CK-MB (CK-2) Serum Total Protein Total Protein Albumin PEP Interpretation PTH Intact Lymph Enumerat CD4/CD8 0.16 L % CD4 Cells 11 L Absolute CD4 Count 269 L % CD8 Cells 72 H Absolute CD8 Count 1684 H Crossmatch 12/10/16 12/10/16 12/10/16 04:00 12:06 15:36 WBC RBC Hgb Hct MCV RDW Plt Count Lymph % (Auto) Lymph # Seg Neutrophils % Seg Neutrophils # Sodium 156 H 155 H Potassium 3.1 L 3.2 L Chloride 117.8 H 116.9 H Carbon Dioxide 17 L 19 L BUN 149 H 138 H Creatinine 7.9 H 7.2 H Glucose 111 H POC Glucose 132 H Calcium 6.0 L 6.2 L Magnesium 1.60 L ALT Total Creatine Kinase CK-MB (CK-2) Serum Total Protein Total Protein Albumin PEP Interpretation PTH Intact Lymph Enumerat CD4/CD8 % CD4 Cells Absolute CD4 Count % CD8 Cells Absolute CD8 Count Crossmatch 12/11/16 12/11/16 12/11/16 08:50 11:13 13:53 WBC RBC Hgb Hct MCV RDW Plt Count Lymph % (Auto) Lymph # Seg Neutrophils % Seg Neutrophils # Sodium 155 H Potassium 3.2 L Chloride 115.0 H Carbon Dioxide 19 L BUN 128 H Creatinine 7.6 H Glucose 117 H POC Glucose 112 H Calcium 5.9 L* Magnesium ALT Total Creatine Kinase CK-MB (CK-2) Serum Total Protein Total Protein Albumin PEP Interpretation PTH Intact 348.9 H Lymph Enumerat CD4/CD8 % CD4 Cells Absolute CD4 Count % CD8 Cells Absolute CD8 Count Crossmatch 12/12/16 12/13/16 12/13/16 06:40 05:01 10:58 WBC RBC Hgb Hct MCV RDW Plt Count Lymph % (Auto) Lymph # Seg Neutrophils % Seg Neutrophils # Sodium 152 H Potassium 3.4 L Chloride 114.6 H 114.7 H Carbon Dioxide 18 L 16 L BUN 125 H 111 H Creatinine 7.5 H 8.1 H Glucose 140 H POC Glucose Calcium 5.7 L* 6.2 L Magnesium ALT < 5 L Total Creatine Kinase CK-MB (CK-2) Serum Total Protein Total Protein 5.3 L Albumin 2.7 L PEP Interpretation PTH Intact Lymph Enumerat CD4/CD8 % CD4 Cells Absolute CD4 Count % CD8 Cells Absolute CD8 Count Crossmatch See Detail 12/13/16 12/14/16 17:36 07:04 WBC RBC Hgb Hct MCV RDW Plt Count Lymph % (Auto) Lymph # Seg Neutrophils % Seg Neutrophils # Sodium Potassium Chloride 108.1 H Carbon Dioxide 21 L BUN 66 H Creatinine 6.1 H Glucose POC Glucose 149 H Calcium 6.6 L Magnesium ALT Total Creatine Kinase CK-MB (CK-2) Serum Total Protein Total Protein Albumin PEP Interpretation PTH Intact Lymph Enumerat CD4/CD8 % CD4 Cells Absolute CD4 Count % CD8 Cells Absolute CD8 Count Crossmatch
--- NOTE | 2016-12-15 07:21 | Progress Note ---
Assessment and Plan Assessment and plan: 61 year old man with history of HIV, psych problems per EMS report was brought to the emergency room because he had not eaten in 2 days. In the ER na was noted to be 166, low BP and UTI. Septic shock - improved with Iv fluid - due to UTI - has completed 7 day Course of Abx Sepsis -UTI - urine cultures reviewed, growing Klebsiella oxytoca -Antibiotics have been de- escalated to doxycycline, sensitivities reviewed and it is sensitive to it, complete a seven-day course. Musculoskeletal CKD stage 5, ESRD, requiring HD Continue hemodialysis per renal Hypernatremia - resolved with hypotonic solution Metabolic acidosis - sp bicarb dip, resolved Hypokalemia repleted Underlying psychiatric problem - no acute issue now, outpatient fup HIV -ID input appreciated, continue retrovirals, CD4 counts reviewed, currently 269 Anemia of chronic disease, requiring transfusions PRBC transfused on 12/13, with a progressively rising hemoglobin Moderate Malnutrition Rock Crusher Operator consult, encourage PO intake of balanced diet Dispo: back to [facility], when acute issues are resolved, and HD chair time is arranged History Interval history: Carloz states that he feels well, denies nausea, denies chest pain, denies shortness of breath. Hospitalist Physical - Physical exam Narrative exam: General: Cachectic, nontoxic appearance HEENT: MMM, EOMI cardiac: S1-S2 heard lungs: clear to auscultation, abdomen: soft, nontender, nondistended bowel sounds positive extremities: no edema clubbing or cyanosis Skin: no rash or lesion Neuro: no focal deficit Psych: appropriate behavior and mood, cognition intact - Constitutional Vitals: Temp Pulse Resp BP Pulse Ox 98.8 F 78 18 107/57 93 12/15/16 04:00 12/15/16 04:00 12/15/16 04:00 12/15/16 04:00 12/14/16 23:00 General appearance: Present: no acute distress, cachectic Results - Labs CBC & Chem 7: 12/15/16 06:46 12/15/16 06:46 Labs: Laboratory Last Values WBC 11.5 K/mm3 (4.5-11.0) H 12/10/16 04:00 RBC 2.26 M/mm3 (3.65-5.03) L 12/10/16 04:00 Hgb 6.9 gm/dl (11.8-15.2) L 12/10/16 04:00 Hct 21.1 % (35.5-45.6) L 12/10/16 04:00 MCV 94 fl (84-94) 12/10/16 04:00 MCH 31 pg (28-32) 12/10/16 04:00 MCHC 33 % (32-34) 12/10/16 04:00 RDW 16.1 % (13.2-15.2) H 12/10/16 04:00 Plt Count 139 K/mm3 (140-440) L 12/10/16 04:00 Lymph % (Auto) 21.7 % (13.4-35.0) 12/10/16 04:00 [place] % (Auto) 6.0 % (0.0-7.3) 12/10/16 04:00 Eos % (Auto) 1.2 % (0.0-4.3) 12/10/16 04:00 Baso % (Auto) 0.5 % (0.0-1.8) 12/10/16 04:00 Lymph # 2.5 K/mm3 (1.2-5.4) 12/10/16 04:00 [place] # 0.7 K/mm3 (0.0-0.8) 12/10/16 04:00 Eos # 0.1 K/mm3 (0.0-0.4) 12/10/16 04:00 Baso # 0.1 K/mm3 (0.0-0.1) 12/10/16 04:00 Seg Neutrophils % 70.6 % (40.0-70.0) H 12/10/16 04:00 Seg Neutrophils # 8.1 K/mm3 (1.8-7.7) H 12/10/16 04:00 Abs Lymphs (Manual) 2301 cells/uL (850-3900) 12/09/16 23:15 Sodium 145 mmol/L (137-145) 12/14/16 07:04 Potassium 3.9 mmol/L (3.6-5.0) 12/14/16 07:04 Chloride 108.1 mmol/L (98-107) H 12/14/16 07:04 Carbon Dioxide 21 mmol/L (22-30) L 12/14/16 07:04 Anion Gap 20 mmol/L 12/14/16 07:04 BUN 66 mg/dL (9-20) H 12/14/16 07:04 Creatinine 6.1 mg/dL (0.8-1.5) H 12/14/16 07:04 Estimated GFR 9 ml/min 12/14/16 07:04 BUN/Creatinine Ratio 10.81 % 12/14/16 07:04 Glucose 86 mg/dL (75-100) 12/14/16 07:04 POC Glucose 149 (70-105) H 12/13/16 17:36 Lactic Acid 1.90 mmol/L (0.7-2.0) 12/08/16 20:51 Calcium 6.6 mg/dL (8.4-10.2) L 12/14/16 07:04 Magnesium 1.60 mg/dL (1.7-2.3) L 12/10/16 15:36 Total Bilirubin 0.30 mg/dL (0.1-1.2) 12/12/16 06:40 AST 21 units/L (5-40) 12/12/16 06:40 ALT < 5 units/L (7-56) L 12/12/16 06:40 Alkaline Phosphatase 62 units/L (35-129) 12/12/16 06:40 Total Creatine Kinase 298 units/L (55-170) H 12/09/16 06:00 CK-MB (CK-2) 9.7 ng/mL (0.0-4.0) H 12/09/16 06:00 CK-MB (CK-2) Rel Index 3.2 (0-4) 12/09/16 06:00 Troponin T 0.016 ng/mL (0.00-0.029) 12/09/16 06:00 Serum Total Protein 5.2 g/dL (6.1-8.1) L 12/09/16 06:00 Total Protein 5.3 g/dL (6.3-8.2) L 12/12/16 06:40 Albumin 2.7 g/dL (3.9-5) L 12/12/16 06:40 Albumin/Globulin Ratio 1.0 % 12/12/16 06:40 Ronyb-1-Qmeidzjum 0.3 g/dL (0.2-0.3) 12/09/16 06:00 Nszab-3-Opfyjaqxx 0.5 g/dL (0.5-0.9) 12/09/16 06:00 Beta Globulins 0.3 g/dL (0.2-0.5) 12/09/16 06:00 Gamma Globulins 1.2 g/dL (0.8-1.7) 12/09/16 06:00 Abnorm Protein Band 1 see below 12/09/16 06:00 PEP Interpretation see below H 12/09/16 06:00 TSH 1.560 mlU/mL (0.270-4.200) 12/08/16 20:51 PTH Intact 348.9 pg/mL (15-65) H 12/11/16 13:53 Urine Color Straw (Yellow) 12/08/16 21:12 Urine Turbidity Turbid (Clear) 12/08/16 21:12 Urine pH 8.0 (5.0-7.0) H 12/08/16 21:12 Ur Specific [place] 1.010 (1.003-1.030) 12/08/16 21:12 Urine Protein >500 mg/dL (Negative) 12/08/16 21:12 Urine Glucose (UA) Negative mg/dL (Negative) 12/08/16 21:12 Urine Ketones Negative mg/dL (Negative) 12/08/16 21:12 Urine Blood Large (Negative) A 12/08/16 21:12 Urine Nitrite Positive (Negative) 12/08/16 21:12 Ur Reducing Substances Not Reportable 12/08/16 21:12 Urine Bilirubin Negative (Negative) 12/08/16 21:12 Urine Ictotest Not Reportable 12/08/16 21:12 Urine Urobilinogen < 2.0 mg/dL (<2.0) 12/08/16 21:12 Ur Leukocyte Esterase Large (Negative) 12/08/16 21:12 Urine WBC (Auto) > 182.0 /HPF (0.0-6.0) H 12/08/16 21:12 Urine RBC (Auto) > 182.0 /HPF (0.0-6.0) 12/08/16 21:12 U Epithel Cells (Auto) 14.0 /HPF (0-13.0) H 12/08/16 21:12 Urine Bacteria (Auto) 4+ /HPF (Negative) 12/08/16 21:12 Urine Mucus 3+ /HPF 12/08/16 21:12 Urine Creatinine 15.7 mg/dL (0.1-20.0) 12/08/16 21:12 Urine Sodium 159 mEq/L 12/08/16 21:12 Fraction Sodium Excret 65.4 12/08/16 21:12 VAN Screen Negative (Negative) 12/09/16 01:00 Proteinase 3 (PR3) Ab <1.0 AI (<1.0) 12/09/16 01:00 Myeloperoxidase Ab <1.0 AI (<1.0) 12/09/16 01:00 Double Strand DNA Ab <1 IU/mL (<=4) 12/09/16 01:00 Complement C3 109 mg/dL (90-180) 12/09/16 01:00 Complement C4 29 mg/dL (16-47) 12/09/16 01:00 Lymph Enumerat CD4/CD8 0.16 (0.86-5.00) L 12/09/16 23:15 % CD3 Cells 84 % (57-85) 12/09/16 23:15 Absolute CD3 Count 1924 cells/uL (840-3060) 12/09/16 23:15 % CD4 Cells 11 % (30-61) L 12/09/16 23:15 Absolute CD4 Count 269 cells/uL (490-1740) L 12/09/16 23:15 % CD8 Cells 72 % (12-42) H 12/09/16 23:15 Absolute CD8 Count 1684 cells/uL (180-1170) H 12/09/16 23:15 % CD19 Cells 6 % (6-29) 12/09/16 23:15 Absolute CD19 Count 138 cells/uL (110-660) 12/09/16 23:15 Hepatitis A IgM Ab Nonreactive (NonReactive) 12/08/16 20:51 Hep Bs Antigen Nonreactive (Negative) 12/08/16 20:51 Hep B Core IgM Ab Non-reactive (NonReactive) 12/08/16 20:51 Hepatitis C Antibody Non-reactive (NonReactive) 12/08/16 20:51 Blood Type O POSITIVE 12/13/16 10:58 DARON Antibody Screen Negative 12/13/16 10:58 Crossmatch See Detail 12/13/16 10:58
[2016-12-15 07:39] LABS: Basophils % (Auto) 0.3 % (0.0-1.8); Eosinophils % (Auto) 1.4 % (0.0-4.3); Hematocrit 24.1 % (35.5-45.6); Hemoglobin 7.8 gm/dl (11.8-15.2); Mean Corpuscular HGB Conc 32 % (32-34); Mean Corpuscular Hemoglobin 30 pg (28-32); Mean Corpuscular Volume 93 fl (84-94); Red Blood Count 2.61 M/mm3 (3.65-5.03); Red Cell Distribution Width 16.1 % (13.2-15.2); White Blood Count 11.5 K/mm3 (4.5-11.0)
[2016-12-15 08:01] LABS: Platelet Count 78 K/mm3 (140-440)
[2016-12-15 08:02] LABS: BUN/Creatinine Ratio 6.95; Calcium 6.7 mg/dL (8.4-10.2); Chloride 105.1 mmol/L (98-107); Potassium 4.2 mmol/L (3.6-5.0)
[2016-12-15 08:03] LABS: Vitamin D, 25-OH, Total 17 ng/mL (30-100)
--- NOTE | 2016-12-15 10:27 | Progress Note ---
Assessment and Plan Assessment: * ESRD vs Nonoliguric acute kidney injury secondary to ATN; ?history of CKD --FeNa>1%; dsDNA, ANCA, C3/C4 negative * Metabolic acidosis, improved * HIV * Septic shock - ?urosepsis * Klebsiella UTI * Hypernatremia * Hypocalcemia * Secondary hyperparathyroidism * Hypokalemia * Hx of psychiatric disorder Plan: * HD for solute clearance, no fluid removal QMWF * likely esrd, questionable HIVAN * prn pRBC with dialysis * Await pending serologies * Continue Calcitriol 0.5mcg daily * Abx per ID/primary team * Strict I/O * Avoid potential nephrotoxins * Dose medications for renal function * Awaiting [facility] records to establish baseline renal function * will need outpatient dialysis placement Subjective Date of service: 12/15/16 Principal diagnosis: HIV infection; UTI Interval history: resting well in bed, no acute events noted Objective - Exam Narrative Exam: General appearance: cachectic, frail EENT: ATNC Respiratory: Present: Clear to Ascultation Cardiology: regular, S1S2 Gastrointestinal: normal Integumentary: no rash Neurologic: alert and oriented x3 Musculoskeletal: other (no edema) Psychiatric: cooperative - Vital Signs Vital signs: Vital Signs - 12hr 12/14/16 12/15/16 12/15/16 23:00 01:35 04:00 Temperature 99 F 98.8 F Pulse Rate [ 88 88 78 Apical] Respiratory 18 18 Rate Blood Pressure 108/62 107/57 [Right Arm] O2 Sat by Pulse 93 Oximetry 12/15/16 07:00 Temperature 99.5 F Pulse Rate [ 90 Apical] Respiratory 20 Rate Blood Pressure 103/58 [Right Arm] O2 Sat by Pulse 99 Oximetry - Lab 12/15/16 06:46 12/15/16 06:46 Most recent lab results Calcium 6.7 mg/dL (8.4-10.2) L 12/15/16 06:46 Magnesium 1.60 mg/dL (1.7-2.3) L 12/10/16 15:36 Urine Creatinine 15.7 mg/dL (0.1-20.0) 12/08/16 21:12 Urine Sodium 159 mEq/L 12/08/16 21:12
[2016-12-15] MEDS: NORVIR PO SCH ×2 (12:15→22:51)
[2016-12-15] MEDS: VIRAMUNE PO SCH ×2 (12:16→22:51)
[2016-12-15] MEDS: ZIAGEN PO SCH ×2 (12:17→22:51)
[2016-12-15] MEDS: ROCALTROL PO SCH (12:17)
[2016-12-15] MEDS: OSCAL PO SCH ×2 (12:18→22:51)
[2016-12-15] MEDS: PREZISTA PO SCH ×2 (12:18→22:51)
[2016-12-15] MEDS: PROTONIX PO SCH (12:19)
[2016-12-15] MEDS: DOXYCYCLINE HYCLATE 100 MG in NACL 0.9% 250ML 250 ML IV SCH (12:22)
--- NOTE | 2016-12-15 13:01 | Progress Note ---
Assessment and Plan Patient sleeping at this time. On room air. Afebrile.No acute respiratory distress.O2 satuaration 99%. - Patient Problems (1) Sepsis associated hypotension Current Visit: Yes Status: Acute Plan to address problem: Antibiotic coverage as per infectious diseases. (2) Acute renal failure Current Visit: Yes Status: Acute Qualifiers: Acute renal failure type: A Plan to address problem: Management as per nephrology. (3) HIV (human immunodeficiency virus infection) Current Visit: Yes Status: Acute Plan to address problem: Management as per primary care and infectious diseases. (4) Hypernatremia Current Visit: Yes Status: Acute Plan to address problem: Improved. Na + 144. (5) Hypothermia Current Visit: Yes Status: Acute Qualifiers: Encounter type: E Plan to address problem: Improved. Present temparature 98.6F. Subjective Date of service: 12/15/16 Principal diagnosis: HIV infection; UTI Interval history: Patient sleeping at this time. On room air. Afebrile.No acute respiratory distress.O2 satuaration 99%. . Objective Vital Signs - 12hr 12/15/16 12/15/16 12/15/16 01:35 04:00 07:00 Temperature 98.8 F 99.5 F Pulse Rate [ 88 78 90 Apical] Respiratory 18 20 Rate Blood Pressure 107/57 103/58 [Right Arm] O2 Sat by Pulse 99 Oximetry 12/15/16 11:00 Temperature 98.6 F Pulse Rate [ 97 H Apical] Respiratory 19 Rate Blood Pressure 115/64 [Right Arm] O2 Sat by Pulse Oximetry Constitutional: no acute distress, alert Eyes: non-icteric, other (Sunken.) ENT: oropharynx moist Neck: supple, no lymphadenopathy Effort: normal Ascultation: Bilateral: clear, diminished breath sounds Cardiovascular: regular rate and rhythm Gastrointestinal: normoactive bowel sounds, soft, non-tender, non-distended Integumentary: normal Extremities: no cyanosis, no edema, pink and warm, pulses normal Neurologic: normal mental status, non-focal exam (grossly), pupils equal and round Psychiatric: depressed CBC and BMP: 12/15/16 06:46 12/15/16 06:46 Abnormal lab findings: Abnormal Labs 12/08/16 12/08/16 12/08/16 23:04 23:04 23:04 WBC RBC Hgb Hct MCV RDW Plt Count Lymph % (Auto) Lymph # Seg Neutrophils % Seg Neutrophils # Sodium 161 H* 161 H* Potassium 5.1 H Chloride 125.5 H Carbon Dioxide 11 L BUN 182 H Creatinine 9.7 H 9.7 H Glucose POC Glucose Calcium 7.3 L Magnesium ALT Total Creatine Kinase 275 H CK-MB (CK-2) 9.4 H Serum Total Protein Total Protein Albumin PEP Interpretation 25-OH Vitamin D Total PTH Intact Lymph Enumerat CD4/CD8 % CD4 Cells Absolute CD4 Count % CD8 Cells Absolute CD8 Count Crossmatch 12/09/16 12/09/16 12/09/16 06:00 06:00 06:00 WBC RBC 2.24 L Hgb 7.1 L Hct 23.9 L MCV 95 H D RDW 16.1 H Plt Count Lymph % (Auto) 10.7 L Lymph # 1.1 L Seg Neutrophils % 85.2 H Seg Neutrophils # 9.1 H Sodium 156 H Potassium Chloride 120.8 H Carbon Dioxide 13 L BUN 169 H Creatinine 8.6 H Glucose 118 H POC Glucose Calcium 6.1 L D Magnesium ALT Total Creatine Kinase 298 H CK-MB (CK-2) 9.7 H Serum Total Protein Total Protein Albumin PEP Interpretation 25-OH Vitamin D Total PTH Intact Lymph Enumerat CD4/CD8 % CD4 Cells Absolute CD4 Count % CD8 Cells Absolute CD8 Count Crossmatch 12/09/16 12/09/16 12/09/16 06:00 07:25 11:56 WBC RBC Hgb Hct MCV RDW Plt Count Lymph % (Auto) Lymph # Seg Neutrophils % Seg Neutrophils # Sodium Potassium Chloride Carbon Dioxide BUN Creatinine Glucose POC Glucose 120 H 106 H Calcium Magnesium ALT Total Creatine Kinase CK-MB (CK-2) Serum Total Protein 5.2 L Total Protein Albumin 2.7 L PEP Interpretation see below H 25-OH Vitamin D Total PTH Intact Lymph Enumerat CD4/CD8 % CD4 Cells Absolute CD4 Count % CD8 Cells Absolute CD8 Count Crossmatch 12/09/16 12/09/16 12/10/16 13:56 23:15 04:00 WBC 11.5 H RBC 2.26 L Hgb 6.9 L Hct 21.1 L MCV RDW 16.1 H Plt Count 139 L Lymph % (Auto) Lymph # Seg Neutrophils % 70.6 H Seg Neutrophils # 8.1 H Sodium 157 H Potassium 3.5 L Chloride 121.3 H Carbon Dioxide 15 L BUN 164 H Creatinine 8.4 H Glucose 107 H POC Glucose Calcium 6.3 L Magnesium ALT Total Creatine Kinase CK-MB (CK-2) Serum Total Protein Total Protein Albumin PEP Interpretation 25-OH Vitamin D Total PTH Intact Lymph Enumerat CD4/CD8 0.16 L % CD4 Cells 11 L Absolute CD4 Count 269 L % CD8 Cells 72 H Absolute CD8 Count 1684 H Crossmatch 12/10/16 12/10/16 12/10/16 04:00 12:06 15:36 WBC RBC Hgb Hct MCV RDW Plt Count Lymph % (Auto) Lymph # Seg Neutrophils % Seg Neutrophils # Sodium 156 H 155 H Potassium 3.1 L 3.2 L Chloride 117.8 H 116.9 H Carbon Dioxide 17 L 19 L BUN 149 H 138 H Creatinine 7.9 H 7.2 H Glucose 111 H POC Glucose 132 H Calcium 6.0 L 6.2 L Magnesium 1.60 L ALT Total Creatine Kinase CK-MB (CK-2) Serum Total Protein Total Protein Albumin PEP Interpretation 25-OH Vitamin D Total PTH Intact Lymph Enumerat CD4/CD8 % CD4 Cells Absolute CD4 Count % CD8 Cells Absolute CD8 Count Crossmatch 12/11/16 12/11/16 12/11/16 08:50 11:13 13:53 WBC RBC Hgb Hct MCV RDW Plt Count Lymph % (Auto) Lymph # Seg Neutrophils % Seg Neutrophils # Sodium 155 H Potassium 3.2 L Chloride 115.0 H Carbon Dioxide 19 L BUN 128 H Creatinine 7.6 H Glucose 117 H POC Glucose 112 H Calcium 5.9 L* Magnesium ALT Total Creatine Kinase CK-MB (CK-2) Serum Total Protein Total Protein Albumin PEP Interpretation 25-OH Vitamin D Total PTH Intact 348.9 H Lymph Enumerat CD4/CD8 % CD4 Cells Absolute CD4 Count % CD8 Cells Absolute CD8 Count Crossmatch 12/11/16 12/12/16 12/13/16 13:53 06:40 05:01 WBC RBC Hgb Hct MCV RDW Plt Count Lymph % (Auto) Lymph # Seg Neutrophils % Seg Neutrophils # Sodium 152 H Potassium 3.4 L Chloride 114.6 H 114.7 H Carbon Dioxide 18 L 16 L BUN 125 H 111 H Creatinine 7.5 H 8.1 H Glucose 140 H POC Glucose Calcium 5.7 L* 6.2 L Magnesium ALT < 5 L Total Creatine Kinase CK-MB (CK-2) Serum Total Protein Total Protein 5.3 L Albumin 2.7 L PEP Interpretation 25-OH Vitamin D Total 17 L PTH Intact Lymph Enumerat CD4/CD8 % CD4 Cells Absolute CD4 Count % CD8 Cells Absolute CD8 Count Crossmatch 12/13/16 12/13/16 12/14/16 10:58 17:36 07:04 WBC RBC Hgb Hct MCV RDW Plt Count Lymph % (Auto) Lymph # Seg Neutrophils % Seg Neutrophils # Sodium Potassium Chloride 108.1 H Carbon Dioxide 21 L BUN 66 H Creatinine 6.1 H Glucose POC Glucose 149 H Calcium 6.6 L Magnesium ALT Total Creatine Kinase CK-MB (CK-2) Serum Total Protein Total Protein Albumin PEP Interpretation 25-OH Vitamin D Total PTH Intact Lymph Enumerat CD4/CD8 % CD4 Cells Absolute CD4 Count % CD8 Cells Absolute CD8 Count Crossmatch See Detail 12/15/16 12/15/16 06:46 06:46 WBC 11.5 H RBC 2.61 L Hgb 7.8 L Hct 24.1 L MCV RDW 16.1 H Plt Count 78 L Lymph % (Auto) Lymph # Seg Neutrophils % 72.4 H Seg Neutrophils # 8.4 H Sodium Potassium Chloride Carbon Dioxide BUN 32 H Creatinine 4.6 H Glucose POC Glucose Calcium 6.7 L Magnesium ALT Total Creatine Kinase CK-MB (CK-2) Serum Total Protein Total Protein Albumin PEP Interpretation 25-OH Vitamin D Total PTH Intact Lymph Enumerat CD4/CD8 % CD4 Cells Absolute CD4 Count % CD8 Cells Absolute CD8 Count Crossmatch
[2016-12-16 07:46] LABS: Basophils % (Auto) 0.2 % (0.0-1.8); Eosinophils % (Auto) 1.4 % (0.0-4.3); Hematocrit 24.1 % (35.5-45.6); Hemoglobin 7.8 gm/dl (11.8-15.2); Mean Corpuscular HGB Conc 32 % (32-34); Mean Corpuscular Hemoglobin 30 pg (28-32); Mean Corpuscular Volume 93 fl (84-94); Red Blood Count 2.58 M/mm3 (3.65-5.03); Red Cell Distribution Width 15.8 % (13.2-15.2); White Blood Count 14.8 K/mm3 (4.5-11.0)
[2016-12-16 07:55] LABS: Platelet Count 88 K/mm3 (140-440)
[2016-12-16 08:07] LABS: BUN/Creatinine Ratio 5.93; Calcium 6.7 mg/dL (8.4-10.2)
[2016-12-16 08:08] LABS: Chloride 107.3 mmol/L (98-107); Potassium 4.5 mmol/L (3.6-5.0)
--- NOTE | 2016-12-16 09:10 | Discharge Summary ---
Providers - Providers Date of Admission: 12/08/16 22:31 Attending physician: DONI DEVI MD 12/09/16 18:25 Consult to Physician [CONS] Routine Consulting Provider: JS PULIDO Reason For Exam: HIV Place consult to:: already notify 1900 per antonieta pacheco Notified:: yes Phone number called:: [phone] Was contact made?: Yes If yes, spoke with:: Time called:: 19:00 12/11/16 00:22 Consult to Wound/ET Nurse [CONS] Routine Reason For Exam: wound eval 12/12/16 15:40 Consult to Dietitian/Nutrition [CONS] Routine Physician Instructions: Reason For Exam: Reason for Consult: Malnutrition 12/13/16 08:22 Consult to Physician [CONS] Routine Consulting Provider: COMFORT LAKHANI Reason For Exam: vascath insertion Place consult to:: DR. LAKHANI Notified:: DR. LAKHANI Phone number called:: INHOUSE Was contact made?: Yes If yes, spoke with:: DR. LAKHANI Time called:: 08:30 Comment:: JES AWARE 12/14/16 13:33 Consult to Case Management [CONS] Routine Services Needed at Discharge: Other Notified:: copy left for cm Additional Physician Instructions: outpatient dialysis placement Primary care physician: TOW TRUCK OPERATOR Hospitalization Condition: Stable Hospital course: 61 year old man with history of HIV, psych problems per EMS report was brought to the emergency room because he had not eaten in 2 days. In the ER na was noted to be 166, low BP and UTI. Septic shock - improved with Iv fluid - due to UTI - has completed 7 day Course of Abx Sepsis -UTI - urine cultures reviewed, growing Klebsiella oxytoca -Antibiotics have been de- escalated to doxycycline, sensitivities reviewed and it is sensitive to it, complete a seven-day course. Musculoskeletal CKD stage 5, ESRD, requiring HD Continue hemodialysis per renal Hypernatremia - resolved with hypotonic solution Metabolic acidosis - sp bicarb dip, resolved Hypokalemia repleted Underlying psychiatric problem - no acute issue now, outpatient fup HIV -ID input appreciated, continue retrovirals, CD4 counts reviewed, currently 269 Anemia of chronic disease, requiring transfusions PRBC transfused on 12/13, with a progressively rising hemoglobin Moderate Malnutrition Rn Prior Authorization consult, encourage PO intake of balanced diet Dispo: back to [facility], when acute issues are resolved, and HD chair time is arranged Disposition: DC/TX HOME UNDER [facility] Time spent for discharge: 35 minutes Core Measure Documentation - Palliative Care Palliative Care/ Comfort Measures: Not Applicable - Core Measures Any of the following diagnoses?: none Exam - Physical Exam Narrative exam: General: Cachectic, nontoxic appearance HEENT: MMM, EOMI cardiac: S1-S2 heard lungs: clear to auscultation, abdomen: soft, nontender, nondistended bowel sounds positive extremities: no edema clubbing or cyanosis Skin: no rash or lesion Neuro: no focal deficit Psych: appropriate behavior and mood, cognition intact - Constitutional Vitals: Temp Pulse Resp BP Pulse Ox 99.3 F 92 H 18 93/51 99 12/16/16 08:00 12/16/16 08:00 12/16/16 08:00 12/16/16 08:00 12/16/16 08:00 Plan Follow up with: PRIMARY CAREMD [Primary Care Provider] - 3-5 Days Prescriptions: Abacavir [Ziagen TAB] 300 mg PO BID #60 tablet Calcitriol [Rocaltrol] 0.5 mcg PO QDAY #30 capsule Calcium Carbonate [Oscal] 1,250 mg PO BID #60 tablet Darunavir [Prezista] 600 mg PO BID #60 tablet Nevirapine [Viramune] 200 mg PO BID #60 tablet Pantoprazole [Protonix TAB] 40 mg PO DAILY #30 tablet Ritonavir [Norvir] 100 mg PO BID #60 tab
--- NOTE | 2016-12-16 10:10 | Progress Note ---
Assessment and Plan Assessment: * ESRD vs Nonoliguric acute kidney injury secondary to ATN; ?history of CKD --FeNa>1%; dsDNA, ANCA, C3/C4 negative * Metabolic acidosis, improved * HIV * Septic shock - ?urosepsis * Klebsiella UTI * Hypernatremia * Hypocalcemia * Secondary hyperparathyroidism * Hypokalemia * Hx of psychiatric disorder Plan: * HD for solute clearance, no fluid removal QMWF * likely esrd, questionable HIVAN * prn pRBC with dialysis * Await pending serologies * Abx per ID/primary team * Strict I/O * Avoid potential nephrotoxins * Dose medications for renal function * [facility] [place]--outpatient dialysis placement Subjective Date of service: 12/16/16 Principal diagnosis: HIV infection; UTI Interval history: resting well in bed, no acute events noted Objective - Exam Narrative Exam: General appearance: cachectic, frail EENT: ATNC Respiratory: Present: Clear to Ascultation Cardiology: regular, S1S2 Gastrointestinal: normal Integumentary: no rash Neurologic: alert and oriented x3 Musculoskeletal: other (no edema) Psychiatric: cooperative - Vital Signs Vital signs: Vital Signs - 12hr 12/16/16 12/16/16 12/16/16 00:00 04:00 08:00 Temperature 99.7 F H 99.4 F 99.3 F Pulse Rate [ 93 H 79 92 H Apical] Pulse Rate [ 18 L From Monitor] Respiratory 18 18 18 Rate Blood Pressure 98/56 96/54 93/51 [Right Arm] O2 Sat by Pulse 100 99 99 Oximetry - Lab 12/16/16 07:08 12/16/16 07:08 Most recent lab results Calcium 6.7 mg/dL (8.4-10.2) L 12/16/16 07:08 Magnesium 1.60 mg/dL (1.7-2.3) L 12/10/16 15:36 Urine Creatinine 15.7 mg/dL (0.1-20.0) 12/08/16 21:12 Urine Sodium 159 mEq/L 12/08/16 21:12
[2016-12-16] MEDS ORDERED: NACL 0.9 (PRIMING MACHINE ONLY DIALYSIS) MC ONE (12:38)
[2016-12-16] MEDS: HEPARIN IV PRN (12:45)
[2016-12-16] MEDS: VIRAMUNE PO SCH ×2 (14:09→23:52)
[2016-12-16] MEDS: PREZISTA PO SCH ×2 (14:09→23:52)
[2016-12-16] MEDS: ROCALTROL PO SCH (14:09)
[2016-12-16] MEDS: OSCAL PO SCH ×2 (14:09→23:52)
[2016-12-16] MEDS: PROTONIX PO SCH (14:19)
[2016-12-16] MEDS: NORVIR PO SCH ×2 (14:19→23:52)
[2016-12-16] MEDS: ZIAGEN PO SCH ×2 (14:19→23:53)
--- NOTE | 2016-12-16 14:39 | Progress Note ---
Assessment and Plan Assessment and plan: 61 year old man with history of HIV, psych problems per EMS report was brought to the emergency room because he had not eaten in 2 days. In the ER na was noted to be 166, low BP and UTI. Septic shock - improved with Iv fluid - due to UTI - has completed 7 day Course of Abx Sepsis -UTI - urine cultures reviewed, growing Klebsiella oxytoca -Antibiotics completed doxycycline, sensitivities reviewed and it is sensitive to it, completed a seven-day course. CKD stage 5, ESRD, requiring HD Continue hemodialysis per renal Hypernatremia - resolved with hypotonic solution Metabolic acidosis - sp bicarb dip, resolved Hypokalemia repleted Underlying psychiatric problem - no acute issue now, outpatient fup HIV -ID input appreciated, continue retrovirals, CD4 counts reviewed, currently 269 Anemia of chronic disease, requiring transfusions PRBC transfused on 12/13, with a progressively rising hemoglobin Moderate Malnutrition Boiler Service Technician consult, encourage PO intake of balanced diet Dispo: back to [facility], when acute issues are resolved, and HD chair time is arranged History Interval history: Carloz states that he feels well, denies nausea, denies chest pain, denies shortness of breath. Hospitalist Physical - Physical exam Narrative exam: General: Cachectic, nontoxic appearance HEENT: MMM, EOMI cardiac: S1-S2 heard lungs: clear to auscultation, abdomen: soft, nontender, nondistended bowel sounds positive extremities: no edema clubbing or cyanosis Skin: no rash or lesion Neuro: no focal deficit Psych: appropriate behavior and mood, cognition intact - Constitutional Vitals: Temp Pulse Resp BP Pulse Ox 99.0 F 105 H 16 101/59 98 12/16/16 14:06 12/16/16 14:06 12/16/16 14:24 12/16/16 14:06 12/16/16 14:06 General appearance: Present: no acute distress, cachectic Results - Labs CBC & Chem 7: 12/16/16 07:08 12/16/16 07:08 Labs: Laboratory Last Values WBC 14.8 K/mm3 (4.5-11.0) H 12/16/16 07:08 RBC 2.58 M/mm3 (3.65-5.03) L 12/16/16 07:08 Hgb 7.8 gm/dl (11.8-15.2) L 12/16/16 07:08 Hct 24.1 % (35.5-45.6) L 12/16/16 07:08 MCV 93 fl (84-94) 12/16/16 07:08 MCH 30 pg (28-32) 12/16/16 07:08 MCHC 32 % (32-34) 12/16/16 07:08 RDW 15.8 % (13.2-15.2) H 12/16/16 07:08 Plt Count 88 K/mm3 (140-440) L 12/16/16 07:08 Lymph % (Auto) 13.4 % (13.4-35.0) 12/16/16 07:08 [place] % (Auto) 6.8 % (0.0-7.3) 12/16/16 07:08 Eos % (Auto) 1.4 % (0.0-4.3) 12/16/16 07:08 Baso % (Auto) 0.2 % (0.0-1.8) 12/16/16 07:08 Lymph # 2.0 K/mm3 (1.2-5.4) 12/16/16 07:08 [place] # 1.0 K/mm3 (0.0-0.8) H 12/16/16 07:08 Eos # 0.2 K/mm3 (0.0-0.4) 12/16/16 07:08 Baso # 0.0 K/mm3 (0.0-0.1) 12/16/16 07:08 Seg Neutrophils % 78.2 % (40.0-70.0) H 12/16/16 07:08 Seg Neutrophils # 11.6 K/mm3 (1.8-7.7) H 12/16/16 07:08 Abs Lymphs (Manual) 2301 cells/uL (850-3900) 12/09/16 23:15 Sodium 146 mmol/L (137-145) H 12/16/16 07:08 Potassium 4.5 mmol/L (3.6-5.0) 12/16/16 07:08 Chloride 107.3 mmol/L (98-107) H 12/16/16 07:08 Carbon Dioxide 24 mmol/L (22-30) 12/16/16 07:08 Anion Gap 19 mmol/L 12/16/16 07:08 BUN 35 mg/dL (9-20) H 12/16/16 07:08 Creatinine 5.9 mg/dL (0.8-1.5) H 12/16/16 07:08 Estimated GFR 10 ml/min 12/16/16 07:08 BUN/Creatinine Ratio 5.93 % 12/16/16 07:08 Glucose 83 mg/dL (75-100) 12/16/16 07:08 POC Glucose 83 (70-105) 12/15/16 21:21 Lactic Acid 1.90 mmol/L (0.7-2.0) 12/08/16 20:51 Calcium 6.7 mg/dL (8.4-10.2) L 12/16/16 07:08 Magnesium 1.60 mg/dL (1.7-2.3) L 12/10/16 15:36 Total Bilirubin 0.30 mg/dL (0.1-1.2) 12/12/16 06:40 AST 21 units/L (5-40) 12/12/16 06:40 ALT < 5 units/L (7-56) L 12/12/16 06:40 Alkaline Phosphatase 62 units/L (35-129) 12/12/16 06:40 Total Creatine Kinase 298 units/L (55-170) H 12/09/16 06:00 CK-MB (CK-2) 9.7 ng/mL (0.0-4.0) H 12/09/16 06:00 CK-MB (CK-2) Rel Index 3.2 (0-4) 12/09/16 06:00 Troponin T 0.016 ng/mL (0.00-0.029) 12/09/16 06:00 Serum Total Protein 5.2 g/dL (6.1-8.1) L 12/09/16 06:00 Total Protein 5.3 g/dL (6.3-8.2) L 12/12/16 06:40 Albumin 2.7 g/dL (3.9-5) L 12/12/16 06:40 Albumin/Globulin Ratio 1.0 % 12/12/16 06:40 Bghyb-0-Zpmrgdhmu 0.3 g/dL (0.2-0.3) 12/09/16 06:00 Hpwoz-4-Eaorjfvoh 0.5 g/dL (0.5-0.9) 12/09/16 06:00 Beta Globulins 0.3 g/dL (0.2-0.5) 12/09/16 06:00 Gamma Globulins 1.2 g/dL (0.8-1.7) 12/09/16 06:00 Abnorm Protein Band 1 see below 12/09/16 06:00 PEP Interpretation see below H 12/09/16 06:00 25-OH Vitamin D Total 17 ng/mL (30-100) L 12/11/16 13:53 TSH 1.560 mlU/mL (0.270-4.200) 12/08/16 20:51 PTH Intact 348.9 pg/mL (15-65) H 12/11/16 13:53 Urine Color Straw (Yellow) 12/08/16 21:12 Urine Turbidity Turbid (Clear) 12/08/16 21:12 Urine pH 8.0 (5.0-7.0) H 12/08/16 21:12 Ur Specific [place] 1.010 (1.003-1.030) 12/08/16 21:12 Urine Protein >500 mg/dL (Negative) 12/08/16 21:12 Urine Glucose (UA) Negative mg/dL (Negative) 12/08/16 21:12 Urine Ketones Negative mg/dL (Negative) 12/08/16 21:12 Urine Blood Large (Negative) A 12/08/16 21:12 Urine Nitrite Positive (Negative) 12/08/16 21:12 Ur Reducing Substances Not Reportable 12/08/16 21:12 Urine Bilirubin Negative (Negative) 12/08/16 21:12 Urine Ictotest Not Reportable 12/08/16 21:12 Urine Urobilinogen < 2.0 mg/dL (<2.0) 12/08/16 21:12 Ur Leukocyte Esterase Large (Negative) 12/08/16 21:12 Urine WBC (Auto) > 182.0 /HPF (0.0-6.0) H 12/08/16 21:12 Urine RBC (Auto) > 182.0 /HPF (0.0-6.0) 12/08/16 21:12 U Epithel Cells (Auto) 14.0 /HPF (0-13.0) H 12/08/16 21:12 Urine Bacteria (Auto) 4+ /HPF (Negative) 12/08/16 21:12 Urine Mucus 3+ /HPF 12/08/16 21:12 Urine Creatinine 15.7 mg/dL (0.1-20.0) 12/08/16 21:12 Urine Sodium 159 mEq/L 12/08/16 21:12 Fraction Sodium Excret 65.4 12/08/16 21:12 VAN Screen Negative (Negative) 12/09/16 01:00 Proteinase 3 (PR3) Ab <1.0 AI (<1.0) 12/09/16 01:00 Myeloperoxidase Ab <1.0 AI (<1.0) 12/09/16 01:00 Double Strand DNA Ab <1 IU/mL (<=4) 12/09/16 01:00 Complement C3 109 mg/dL (90-180) 12/09/16 01:00 Complement C4 29 mg/dL (16-47) 12/09/16 01:00 Lymph Enumerat CD4/CD8 0.16 (0.86-5.00) L 12/09/16 23:15 % CD3 Cells 84 % (57-85) 12/09/16 23:15 Absolute CD3 Count 1924 cells/uL (840-3060) 12/09/16 23:15 % CD4 Cells 11 % (30-61) L 12/09/16 23:15 Absolute CD4 Count 269 cells/uL (490-1740) L 12/09/16 23:15 % CD8 Cells 72 % (12-42) H 12/09/16 23:15 Absolute CD8 Count 1684 cells/uL (180-1170) H 12/09/16 23:15 % CD19 Cells 6 % (6-29) 12/09/16 23:15 Absolute CD19 Count 138 cells/uL (110-660) 12/09/16 23:15 Hepatitis A IgM Ab Nonreactive (NonReactive) 12/08/16 20:51 Hep Bs Antigen Nonreactive (Negative) 12/08/16 20:51 Hep B Core IgM Ab Non-reactive (NonReactive) 12/08/16 20:51 Hepatitis C Antibody Non-reactive (NonReactive) 12/08/16 20:51 Blood Type O POSITIVE 12/13/16 10:58 DARON Antibody Screen Negative 12/13/16 10:58 Crossmatch See Detail 12/13/16 10:58
--- NOTE | 2016-12-16 18:47 | Progress Note ---
Assessment and Plan Patient awake . On room air. Running low grade temp.No acute respiratory distress.O2 satuaration 100%. - Patient Problems (1) Sepsis associated hypotension Current Visit: Yes Status: Acute Plan to address problem: Antibiotic coverage as per infectious diseases. (2) Acute renal failure Current Visit: Yes Status: Acute Qualifiers: Acute renal failure type: A Plan to address problem: Management as per nephrology. (3) HIV (human immunodeficiency virus infection) Current Visit: Yes Status: Acute Plan to address problem: Management as per primary care and infectious diseases. (4) Hypernatremia Current Visit: Yes Status: Acute Plan to address problem: Improved. Na + 146. (5) Hypothermia Current Visit: Yes Status: Acute Qualifiers: Encounter type: E Plan to address problem: Improved. Present temparature 99.1F. Subjective Date of service: 12/16/16 Principal diagnosis: HIV infection; UTI Interval history: Patient awake. On room air. Running low grade temp..No acute respiratory distress.O2 satuaration 100%. . Objective Vital Signs - 12hr 12/16/16 12/16/16 12/16/16 08:00 09:55 10:00 Temperature 99.3 F 99.2 F Pulse Rate 81 82 Pulse Rate [ 92 H Apical] Respiratory 18 18 Rate Blood Pressure 107/58 107/56 Blood Pressure 93/51 [Right Arm] O2 Sat by Pulse 99 Oximetry 12/16/16 12/16/16 12/16/16 10:15 10:30 10:45 Temperature Pulse Rate 81 85 79 Pulse Rate [ Apical] Respiratory Rate Blood Pressure 108/60 96/51 101/54 Blood Pressure [Right Arm] O2 Sat by Pulse Oximetry 12/16/16 12/16/16 12/16/16 11:00 11:15 11:30 Temperature Pulse Rate 83 87 81 Pulse Rate [ Apical] Respiratory Rate Blood Pressure 93/51 103/55 99/53 Blood Pressure [Right Arm] O2 Sat by Pulse Oximetry 12/16/16 12/16/16 12/16/16 11:45 12:00 12:15 Temperature Pulse Rate 81 81 82 Pulse Rate [ Apical] Respiratory Rate Blood Pressure 99/55 101/51 96/45 Blood Pressure [Right Arm] O2 Sat by Pulse Oximetry 12/16/16 12/16/16 12/16/16 12:30 12:45 12:55 Temperature Pulse Rate 82 83 83 Pulse Rate [ Apical] Respiratory Rate Blood Pressure 106/58 105/53 105/52 Blood Pressure [Right Arm] O2 Sat by Pulse Oximetry 12/16/16 12/16/16 12/16/16 13:00 14:06 14:24 Temperature 98.9 F 99.0 F Pulse Rate 83 Pulse Rate [ 105 H Apical] Respiratory 18 18 16 Rate Blood Pressure 105/53 Blood Pressure 101/59 [Right Arm] O2 Sat by Pulse 98 Oximetry 12/16/16 15:00 Temperature 99.1 F Pulse Rate Pulse Rate [ 99 H Apical] Respiratory 18 Rate Blood Pressure Blood Pressure 142/72 [Right Arm] O2 Sat by Pulse 100 Oximetry Constitutional: no acute distress, alert Eyes: non-icteric, other (Sunken.) ENT: oropharynx moist Neck: supple, no lymphadenopathy Effort: normal Ascultation: Bilateral: diminished breath sounds Cardiovascular: regular rate and rhythm Gastrointestinal: normoactive bowel sounds, soft, non-tender, non-distended Integumentary: normal Extremities: no cyanosis, no edema, pink and warm, pulses normal Neurologic: normal mental status, non-focal exam (grossly), pupils equal and round Psychiatric: depressed CBC and BMP: 12/16/16 07:08 12/16/16 07:08 Abnormal lab findings: Abnormal Labs 12/08/16 12/08/16 12/08/16 23:04 23:04 23:04 WBC RBC Hgb Hct MCV RDW Plt Count Lymph % (Auto) Lymph # [place] # Seg Neutrophils % Seg Neutrophils # Sodium 161 H* 161 H* Potassium 5.1 H Chloride 125.5 H Carbon Dioxide 11 L BUN 182 H Creatinine 9.7 H 9.7 H Glucose POC Glucose Calcium 7.3 L Magnesium ALT Total Creatine Kinase 275 H CK-MB (CK-2) 9.4 H Serum Total Protein Total Protein Albumin PEP Interpretation 25-OH Vitamin D Total PTH Intact Lymph Enumerat CD4/CD8 % CD4 Cells Absolute CD4 Count % CD8 Cells Absolute CD8 Count Crossmatch 12/09/16 12/09/16 12/09/16 06:00 06:00 06:00 WBC RBC 2.24 L Hgb 7.1 L Hct 23.9 L MCV 95 H D RDW 16.1 H Plt Count Lymph % (Auto) 10.7 L Lymph # 1.1 L [place] # Seg Neutrophils % 85.2 H Seg Neutrophils # 9.1 H Sodium 156 H Potassium Chloride 120.8 H Carbon Dioxide 13 L BUN 169 H Creatinine 8.6 H Glucose 118 H POC Glucose Calcium 6.1 L D Magnesium ALT Total Creatine Kinase 298 H CK-MB (CK-2) 9.7 H Serum Total Protein Total Protein Albumin PEP Interpretation 25-OH Vitamin D Total PTH Intact Lymph Enumerat CD4/CD8 % CD4 Cells Absolute CD4 Count % CD8 Cells Absolute CD8 Count Crossmatch 12/09/16 12/09/16 12/09/16 06:00 07:25 11:56 WBC RBC Hgb Hct MCV RDW Plt Count Lymph % (Auto) Lymph # [place] # Seg Neutrophils % Seg Neutrophils # Sodium Potassium Chloride Carbon Dioxide BUN Creatinine Glucose POC Glucose 120 H 106 H Calcium Magnesium ALT Total Creatine Kinase CK-MB (CK-2) Serum Total Protein 5.2 L Total Protein Albumin 2.7 L PEP Interpretation see below H 25-OH Vitamin D Total PTH Intact Lymph Enumerat CD4/CD8 % CD4 Cells Absolute CD4 Count % CD8 Cells Absolute CD8 Count Crossmatch 12/09/16 12/09/16 12/10/16 13:56 23:15 04:00 WBC 11.5 H RBC 2.26 L Hgb 6.9 L Hct 21.1 L MCV RDW 16.1 H Plt Count 139 L Lymph % (Auto) Lymph # [place] # Seg Neutrophils % 70.6 H Seg Neutrophils # 8.1 H Sodium 157 H Potassium 3.5 L Chloride 121.3 H Carbon Dioxide 15 L BUN 164 H Creatinine 8.4 H Glucose 107 H POC Glucose Calcium 6.3 L Magnesium ALT Total Creatine Kinase CK-MB (CK-2) Serum Total Protein Total Protein Albumin PEP Interpretation 25-OH Vitamin D Total PTH Intact Lymph Enumerat CD4/CD8 0.16 L % CD4 Cells 11 L Absolute CD4 Count 269 L % CD8 Cells 72 H Absolute CD8 Count 1684 H Crossmatch 12/10/16 12/10/16 12/10/16 04:00 12:06 15:36 WBC RBC Hgb Hct MCV RDW Plt Count Lymph % (Auto) Lymph # [place] # Seg Neutrophils % Seg Neutrophils # Sodium 156 H 155 H Potassium 3.1 L 3.2 L Chloride 117.8 H 116.9 H Carbon Dioxide 17 L 19 L BUN 149 H 138 H Creatinine 7.9 H 7.2 H Glucose 111 H POC Glucose 132 H Calcium 6.0 L 6.2 L Magnesium 1.60 L ALT Total Creatine Kinase CK-MB (CK-2) Serum Total Protein Total Protein Albumin PEP Interpretation 25-OH Vitamin D Total PTH Intact Lymph Enumerat CD4/CD8 % CD4 Cells Absolute CD4 Count % CD8 Cells Absolute CD8 Count Crossmatch 12/11/16 12/11/16 12/11/16 08:50 11:13 13:53 WBC RBC Hgb Hct MCV RDW Plt Count Lymph % (Auto) Lymph # [place] # Seg Neutrophils % Seg Neutrophils # Sodium 155 H Potassium 3.2 L Chloride 115.0 H Carbon Dioxide 19 L BUN 128 H Creatinine 7.6 H Glucose 117 H POC Glucose 112 H Calcium 5.9 L* Magnesium ALT Total Creatine Kinase CK-MB (CK-2) Serum Total Protein Total Protein Albumin PEP Interpretation 25-OH Vitamin D Total PTH Intact 348.9 H Lymph Enumerat CD4/CD8 % CD4 Cells Absolute CD4 Count % CD8 Cells Absolute CD8 Count Crossmatch 12/11/16 12/12/16 12/13/16 13:53 06:40 05:01 WBC RBC Hgb Hct MCV RDW Plt Count Lymph % (Auto) Lymph # [place] # Seg Neutrophils % Seg Neutrophils # Sodium 152 H Potassium 3.4 L Chloride 114.6 H 114.7 H Carbon Dioxide 18 L 16 L BUN 125 H 111 H Creatinine 7.5 H 8.1 H Glucose 140 H POC Glucose Calcium 5.7 L* 6.2 L Magnesium ALT < 5 L Total Creatine Kinase CK-MB (CK-2) Serum Total Protein Total Protein 5.3 L Albumin 2.7 L PEP Interpretation 25-OH Vitamin D Total 17 L PTH Intact Lymph Enumerat CD4/CD8 % CD4 Cells Absolute CD4 Count % CD8 Cells Absolute CD8 Count Crossmatch 12/13/16 12/13/16 12/14/16 10:58 17:36 07:04 WBC RBC Hgb Hct MCV RDW Plt Count Lymph % (Auto) Lymph # [place] # Seg Neutrophils % Seg Neutrophils # Sodium Potassium Chloride 108.1 H Carbon Dioxide 21 L BUN 66 H Creatinine 6.1 H Glucose POC Glucose 149 H Calcium 6.6 L Magnesium ALT Total Creatine Kinase CK-MB (CK-2) Serum Total Protein Total Protein Albumin PEP Interpretation 25-OH Vitamin D Total PTH Intact Lymph Enumerat CD4/CD8 % CD4 Cells Absolute CD4 Count % CD8 Cells Absolute CD8 Count Crossmatch See Detail 12/15/16 12/15/16 12/16/16 06:46 06:46 07:08 WBC 11.5 H 14.8 H RBC 2.61 L 2.58 L Hgb 7.8 L 7.8 L Hct 24.1 L 24.1 L MCV RDW 16.1 H 15.8 H Plt Count 78 L 88 L Lymph % (Auto) Lymph # [place] # 1.0 H Seg Neutrophils % 72.4 H 78.2 H Seg Neutrophils # 8.4 H 11.6 H Sodium Potassium Chloride Carbon Dioxide BUN 32 H Creatinine 4.6 H Glucose POC Glucose Calcium 6.7 L Magnesium ALT Total Creatine Kinase CK-MB (CK-2) Serum Total Protein Total Protein Albumin PEP Interpretation 25-OH Vitamin D Total PTH Intact Lymph Enumerat CD4/CD8 % CD4 Cells Absolute CD4 Count % CD8 Cells Absolute CD8 Count Crossmatch 12/16/16 07:08 WBC RBC Hgb Hct MCV RDW Plt Count Lymph % (Auto) Lymph # [place] # Seg Neutrophils % Seg Neutrophils # Sodium 146 H Potassium Chloride 107.3 H Carbon Dioxide BUN 35 H Creatinine 5.9 H Glucose POC Glucose Calcium 6.7 L Magnesium ALT Total Creatine Kinase CK-MB (CK-2) Serum Total Protein Total Protein Albumin PEP Interpretation 25-OH Vitamin D Total PTH Intact Lymph Enumerat CD4/CD8 % CD4 Cells Absolute CD4 Count % CD8 Cells Absolute CD8 Count Crossmatch
[2016-12-17 08:35] LABS: BUN/Creatinine Ratio 5.47; Calcium 7.1 mg/dL (8.4-10.2); Chloride 107.4 mmol/L (98-107); Potassium 4.3 mmol/L (3.6-5.0)
[2016-12-17 08:36] LABS: Basophils % (Auto) 0.4 % (0.0-1.8); Eosinophils % (Auto) 1.7 % (0.0-4.3); Hematocrit 24.7 % (35.5-45.6); Hemoglobin 7.9 gm/dl (11.8-15.2); Mean Corpuscular HGB Conc 32 % (32-34); Mean Corpuscular Hemoglobin 31 pg (28-32); Mean Corpuscular Volume 96 fl (84-94); Platelet Count 109 K/mm3 (140-440); Red Blood Count 2.58 M/mm3 (3.65-5.03); Red Cell Distribution Width 16.4 % (13.2-15.2); White Blood Count 11.6 K/mm3 (4.5-11.0)
[2016-12-17 08:58] VITALS: BP 95/54
[2016-12-17] MEDS: OSCAL PO SCH (09:36)
[2016-12-17] MEDS: NORVIR PO SCH (09:36)
[2016-12-17] MEDS: ROCALTROL PO SCH (09:36)
[2016-12-17] MEDS: PROTONIX PO SCH (09:36)
[2016-12-17] MEDS: PREZISTA PO SCH (09:36)
[2016-12-17] MEDS: VIRAMUNE PO SCH (09:36)
[2016-12-17] MEDS: ZIAGEN PO SCH (09:37)
--- NOTE | 2016-12-17 11:23 | Progress Note ---
Assessment and Plan Assessment: * ESRD vs Nonoliguric acute kidney injury secondary to ATN; ?history of CKD --FeNa>1%; dsDNA, ANCA, C3/C4 negative * Metabolic acidosis, improved * HIV * Septic shock - ?urosepsis * Klebsiella UTI * Hypernatremia * Hypocalcemia * Secondary hyperparathyroidism * Hypokalemia * Hx of psychiatric disorder Plan: * HD for solute clearance, no fluid removal QMWF * likely esrd, questionable HIVAN * prn pRBC with dialysis * Await pending serologies * Abx per ID/primary team * Strict I/O * Avoid potential nephrotoxins * Dose medications for renal function * [facility]--outpatient dialysis placement TTS * ok to dc from renal standpoint Subjective Date of service: 12/17/16 Principal diagnosis: HIV infection; UTI Interval history: resting well in bed, no acute events noted Objective - Exam Narrative Exam: General appearance: cachectic, frail EENT: ATNC Respiratory: Present: Clear to Ascultation Cardiology: regular, S1S2 Gastrointestinal: normal Integumentary: no rash Neurologic: alert and oriented x3 Musculoskeletal: other (no edema) Psychiatric: cooperative - Vital Signs Vital signs: Vital Signs - 12hr 12/17/16 12/17/16 12/17/16 00:00 04:00 07:00 Temperature 99.5 F 99.4 F 99.0 F Pulse Rate [ 90 Apical] Pulse Rate [ 100 H 96 H From Monitor] Respiratory 20 20 20 Rate Blood Pressure 94/54 101/64 95/54 [Right Arm] O2 Sat by Pulse 100 100 98 Oximetry - Lab 12/17/16 07:47 12/17/16 07:47 Most recent lab results Calcium 7.1 mg/dL (8.4-10.2) L 12/17/16 07:47 Magnesium 1.60 mg/dL (1.7-2.3) L 12/10/16 15:36 Urine Creatinine 15.7 mg/dL (0.1-20.0) 12/08/16 21:12 Urine Sodium 159 mEq/L 12/08/16 21:12
--- NOTE | 2016-12-17 11:38 | Progress Note ---
Assessment and Plan Assessment and plan: 61 year old man with history of HIV, psych problems per EMS report was brought to the emergency room because he had not eaten in 2 days. In the ER na was noted to be 166, low BP and UTI. Septic shock - improved with Iv fluid - due to UTI - has completed 7 day Course of Abx Sepsis -UTI - urine cultures reviewed, growing Klebsiella oxytoca -Antibiotics completed doxycycline, sensitivities reviewed and it is sensitive to it, completed a seven-day course. CKD stage 5, ESRD, requiring HD Continue hemodialysis per renal Hypernatremia - resolved with hypotonic solution Metabolic acidosis - sp bicarb dip, resolved Hypokalemia repleted Underlying psychiatric problem - no acute issue now, outpatient fup HIV -ID input appreciated, continue retrovirals, CD4 counts reviewed, currently 269 Anemia of chronic disease, requiring transfusions PRBC transfused on 12/13, with a progressively rising hemoglobin Moderate Malnutrition Chemical Sales Representative consult, encourage PO intake of balanced diet Dispo: back to [facility], when acute issues are resolved, and HD chair time is arranged History Interval history: Carloz states that he feels well, denies nausea, denies chest pain, denies shortness of breath. Hospitalist Physical - Physical exam Narrative exam: General: Cachectic, nontoxic appearance HEENT: MMM, EOMI cardiac: S1-S2 heard lungs: clear to auscultation, abdomen: soft, nontender, nondistended bowel sounds positive extremities: no edema clubbing or cyanosis Skin: no rash or lesion Neuro: no focal deficit Psych: appropriate behavior and mood, cognition intact - Constitutional Vitals: Temp Pulse Resp BP Pulse Ox 99.0 F 90 20 95/54 98 12/17/16 07:00 12/17/16 07:00 12/17/16 07:00 12/17/16 07:00 12/17/16 07:00 General appearance: Present: no acute distress, cachectic Results - Labs CBC & Chem 7: 12/17/16 07:47 12/17/16 07:47 Labs: Laboratory Last Values WBC 11.6 K/mm3 (4.5-11.0) H 12/17/16 07:47 RBC 2.58 M/mm3 (3.65-5.03) L 12/17/16 07:47 Hgb 7.9 gm/dl (11.8-15.2) L 12/17/16 07:47 Hct 24.7 % (35.5-45.6) L 12/17/16 07:47 MCV 96 fl (84-94) H D 12/17/16 07:47 MCH 31 pg (28-32) 12/17/16 07:47 MCHC 32 % (32-34) 12/17/16 07:47 RDW 16.4 % (13.2-15.2) H 12/17/16 07:47 Plt Count 109 K/mm3 (140-440) L 12/17/16 07:47 Lymph % (Auto) 20.3 % (13.4-35.0) 12/17/16 07:47 [place] % (Auto) 6.8 % (0.0-7.3) 12/17/16 07:47 Eos % (Auto) 1.7 % (0.0-4.3) 12/17/16 07:47 Baso % (Auto) 0.4 % (0.0-1.8) 12/17/16 07:47 Lymph # 2.3 K/mm3 (1.2-5.4) 12/17/16 07:47 [place] # 0.8 K/mm3 (0.0-0.8) 12/17/16 07:47 Eos # 0.2 K/mm3 (0.0-0.4) 12/17/16 07:47 Baso # 0.0 K/mm3 (0.0-0.1) 12/17/16 07:47 Seg Neutrophils % 70.8 % (40.0-70.0) H 12/17/16 07:47 Seg Neutrophils # 8.2 K/mm3 (1.8-7.7) H 12/17/16 07:47 Abs Lymphs (Manual) 2301 cells/uL (850-3900) 12/09/16 23:15 Sodium 147 mmol/L (137-145) H 12/17/16 07:47 Potassium 4.3 mmol/L (3.6-5.0) 12/17/16 07:47 Chloride 107.4 mmol/L (98-107) H 12/17/16 07:47 Carbon Dioxide 27 mmol/L (22-30) 12/17/16 07:47 Anion Gap 17 mmol/L 12/17/16 07:47 BUN 23 mg/dL (9-20) H 12/17/16 07:47 Creatinine 4.2 mg/dL (0.8-1.5) H 12/17/16 07:47 Estimated GFR 15 ml/min 12/17/16 07:47 BUN/Creatinine Ratio 5.47 % 12/17/16 07:47 Glucose 87 mg/dL (75-100) 12/17/16 07:47 POC Glucose 83 (70-105) 12/15/16 21:21 Lactic Acid 1.90 mmol/L (0.7-2.0) 12/08/16 20:51 Calcium 7.1 mg/dL (8.4-10.2) L 12/17/16 07:47 Magnesium 1.60 mg/dL (1.7-2.3) L 12/10/16 15:36 Total Bilirubin 0.30 mg/dL (0.1-1.2) 12/12/16 06:40 AST 21 units/L (5-40) 12/12/16 06:40 ALT < 5 units/L (7-56) L 12/12/16 06:40 Alkaline Phosphatase 62 units/L (35-129) 12/12/16 06:40 Total Creatine Kinase 298 units/L (55-170) H 12/09/16 06:00 CK-MB (CK-2) 9.7 ng/mL (0.0-4.0) H 12/09/16 06:00 CK-MB (CK-2) Rel Index 3.2 (0-4) 12/09/16 06:00 Troponin T 0.016 ng/mL (0.00-0.029) 12/09/16 06:00 Serum Total Protein 5.2 g/dL (6.1-8.1) L 12/09/16 06:00 Total Protein 5.3 g/dL (6.3-8.2) L 12/12/16 06:40 Albumin 2.7 g/dL (3.9-5) L 12/12/16 06:40 Albumin/Globulin Ratio 1.0 % 12/12/16 06:40 Muiyy-2-Aekczxtcj 0.3 g/dL (0.2-0.3) 12/09/16 06:00 Mcitu-7-Brpvslmsy 0.5 g/dL (0.5-0.9) 12/09/16 06:00 Beta Globulins 0.3 g/dL (0.2-0.5) 12/09/16 06:00 Gamma Globulins 1.2 g/dL (0.8-1.7) 12/09/16 06:00 Abnorm Protein Band 1 see below 12/09/16 06:00 PEP Interpretation see below H 12/09/16 06:00 25-OH Vitamin D Total 17 ng/mL (30-100) L 12/11/16 13:53 TSH 1.560 mlU/mL (0.270-4.200) 12/08/16 20:51 PTH Intact 348.9 pg/mL (15-65) H 12/11/16 13:53 Urine Color Straw (Yellow) 12/08/16 21:12 Urine Turbidity Turbid (Clear) 12/08/16 21:12 Urine pH 8.0 (5.0-7.0) H 12/08/16 21:12 Ur Specific [place] 1.010 (1.003-1.030) 12/08/16 21:12 Urine Protein >500 mg/dL (Negative) 12/08/16 21:12 Urine Glucose (UA) Negative mg/dL (Negative) 12/08/16 21:12 Urine Ketones Negative mg/dL (Negative) 12/08/16 21:12 Urine Blood Large (Negative) A 12/08/16 21:12 Urine Nitrite Positive (Negative) 12/08/16 21:12 Ur Reducing Substances Not Reportable 12/08/16 21:12 Urine Bilirubin Negative (Negative) 12/08/16 21:12 Urine Ictotest Not Reportable 12/08/16 21:12 Urine Urobilinogen < 2.0 mg/dL (<2.0) 12/08/16 21:12 Ur Leukocyte Esterase Large (Negative) 12/08/16 21:12 Urine WBC (Auto) > 182.0 /HPF (0.0-6.0) H 12/08/16 21:12 Urine RBC (Auto) > 182.0 /HPF (0.0-6.0) 12/08/16 21:12 U Epithel Cells (Auto) 14.0 /HPF (0-13.0) H 12/08/16 21:12 Urine Bacteria (Auto) 4+ /HPF (Negative) 12/08/16 21:12 Urine Mucus 3+ /HPF 12/08/16 21:12 Urine Creatinine 15.7 mg/dL (0.1-20.0) 12/08/16 21:12 Urine Sodium 159 mEq/L 12/08/16 21:12 Fraction Sodium Excret 65.4 12/08/16 21:12 VAN Screen Negative (Negative) 12/09/16 01:00 Proteinase 3 (PR3) Ab <1.0 AI (<1.0) 12/09/16 01:00 Myeloperoxidase Ab <1.0 AI (<1.0) 12/09/16 01:00 Double Strand DNA Ab <1 IU/mL (<=4) 12/09/16 01:00 Complement C3 109 mg/dL (90-180) 12/09/16 01:00 Complement C4 29 mg/dL (16-47) 12/09/16 01:00 Lymph Enumerat CD4/CD8 0.16 (0.86-5.00) L 12/09/16 23:15 % CD3 Cells 84 % (57-85) 12/09/16 23:15 Absolute CD3 Count 1924 cells/uL (840-3060) 12/09/16 23:15 % CD4 Cells 11 % (30-61) L 12/09/16 23:15 Absolute CD4 Count 269 cells/uL (490-1740) L 12/09/16 23:15 % CD8 Cells 72 % (12-42) H 12/09/16 23:15 Absolute CD8 Count 1684 cells/uL (180-1170) H 12/09/16 23:15 % CD19 Cells 6 % (6-29) 12/09/16 23:15 Absolute CD19 Count 138 cells/uL (110-660) 12/09/16 23:15 Hepatitis A IgM Ab Nonreactive (NonReactive) 12/08/16 20:51 Hep Bs Antigen Nonreactive (Negative) 12/08/16 20:51 Hep B Core IgM Ab Non-reactive (NonReactive) 12/08/16 20:51 Hepatitis C Antibody Non-reactive (NonReactive) 12/08/16 20:51 Blood Type O POSITIVE 12/13/16 10:58 DARON Antibody Screen Negative 12/13/16 10:58 Crossmatch See Detail 12/13/16 10:58
--- NOTE | 2016-12-17 19:22 | Progress Note ---
Assessment and Plan Patient awake . On room air. Running low grade temp.No acute respiratory distress.O2 satuaration 98%%. - Patient Problems (1) Sepsis associated hypotension Status: Acute Plan to address problem: Antibiotic coverage as per infectious diseases. (2) Acute renal failure Status: Acute Qualifiers: Acute renal failure type: A Plan to address problem: Management as per nephrology. (3) HIV (human immunodeficiency virus infection) Status: Acute Plan to address problem: Management as per primary care and infectious diseases. (4) Hypernatremia Status: Acute Plan to address problem: Improved. Na + 146. (5) Hypothermia Status: Acute Qualifiers: Encounter type: E Plan to address problem: Improved. Present temparature 99F. Subjective Date of service: 12/17/16 Principal diagnosis: HIV infection; UTI Interval history: Patient awake. On room air. Running low grade temp..No acute respiratory distress.O2 satuaration 98%. . Objective Constitutional: no acute distress, alert Eyes: non-icteric, other (Sunken.) ENT: oropharynx moist Neck: supple, no lymphadenopathy Effort: normal Ascultation: Bilateral: diminished breath sounds Cardiovascular: regular rate and rhythm Gastrointestinal: normoactive bowel sounds, soft, non-tender, non-distended Integumentary: normal Extremities: no cyanosis, no edema, pink and warm, pulses normal Neurologic: normal mental status, non-focal exam (grossly), pupils equal and round Psychiatric: depressed CBC and BMP: 12/17/16 07:47 12/17/16 07:47 Abnormal lab findings: Abnormal Labs 12/08/16 12/08/16 12/08/16 23:04 23:04 23:04 WBC RBC Hgb Hct MCV RDW Plt Count Lymph % (Auto) Lymph # Craig # Seg Neutrophils % Seg Neutrophils # Sodium 161 H* 161 H* Potassium 5.1 H Chloride 125.5 H Carbon Dioxide 11 L BUN 182 H Creatinine 9.7 H 9.7 H Glucose POC Glucose Calcium 7.3 L Magnesium ALT Total Creatine Kinase 275 H CK-MB (CK-2) 9.4 H Serum Total Protein Total Protein Albumin PEP Interpretation 25-OH Vitamin D Total PTH Intact Lymph Enumerat CD4/CD8 % CD4 Cells Absolute CD4 Count % CD8 Cells Absolute CD8 Count Crossmatch 12/09/16 12/09/16 12/09/16 06:00 06:00 06:00 WBC RBC 2.24 L Hgb 7.1 L Hct 23.9 L MCV 95 H D RDW 16.1 H Plt Count Lymph % (Auto) 10.7 L Lymph # 1.1 L Craig # Seg Neutrophils % 85.2 H Seg Neutrophils # 9.1 H Sodium 156 H Potassium Chloride 120.8 H Carbon Dioxide 13 L BUN 169 H Creatinine 8.6 H Glucose 118 H POC Glucose Calcium 6.1 L D Magnesium ALT Total Creatine Kinase 298 H CK-MB (CK-2) 9.7 H Serum Total Protein Total Protein Albumin PEP Interpretation 25-OH Vitamin D Total PTH Intact Lymph Enumerat CD4/CD8 % CD4 Cells Absolute CD4 Count % CD8 Cells Absolute CD8 Count Crossmatch 12/09/16 12/09/16 12/09/16 06:00 07:25 11:56 WBC RBC Hgb Hct MCV RDW Plt Count Lymph % (Auto) Lymph # Craig # Seg Neutrophils % Seg Neutrophils # Sodium Potassium Chloride Carbon Dioxide BUN Creatinine Glucose POC Glucose 120 H 106 H Calcium Magnesium ALT Total Creatine Kinase CK-MB (CK-2) Serum Total Protein 5.2 L Total Protein Albumin 2.7 L PEP Interpretation see below H 25-OH Vitamin D Total PTH Intact Lymph Enumerat CD4/CD8 % CD4 Cells Absolute CD4 Count % CD8 Cells Absolute CD8 Count Crossmatch 12/09/16 12/09/16 12/10/16 13:56 23:15 04:00 WBC 11.5 H RBC 2.26 L Hgb 6.9 L Hct 21.1 L MCV RDW 16.1 H Plt Count 139 L Lymph % (Auto) Lymph # Craig # Seg Neutrophils % 70.6 H Seg Neutrophils # 8.1 H Sodium 157 H Potassium 3.5 L Chloride 121.3 H Carbon Dioxide 15 L BUN 164 H Creatinine 8.4 H Glucose 107 H POC Glucose Calcium 6.3 L Magnesium ALT Total Creatine Kinase CK-MB (CK-2) Serum Total Protein Total Protein Albumin PEP Interpretation 25-OH Vitamin D Total PTH Intact Lymph Enumerat CD4/CD8 0.16 L % CD4 Cells 11 L Absolute CD4 Count 269 L % CD8 Cells 72 H Absolute CD8 Count 1684 H Crossmatch 12/10/16 12/10/16 12/10/16 04:00 12:06 15:36 WBC RBC Hgb Hct MCV RDW Plt Count Lymph % (Auto) Lymph # Craig # Seg Neutrophils % Seg Neutrophils # Sodium 156 H 155 H Potassium 3.1 L 3.2 L Chloride 117.8 H 116.9 H Carbon Dioxide 17 L 19 L BUN 149 H 138 H Creatinine 7.9 H 7.2 H Glucose 111 H POC Glucose 132 H Calcium 6.0 L 6.2 L Magnesium 1.60 L ALT Total Creatine Kinase CK-MB (CK-2) Serum Total Protein Total Protein Albumin PEP Interpretation 25-OH Vitamin D Total PTH Intact Lymph Enumerat CD4/CD8 % CD4 Cells Absolute CD4 Count % CD8 Cells Absolute CD8 Count Crossmatch 12/11/16 12/11/16 12/11/16 08:50 11:13 13:53 WBC RBC Hgb Hct MCV RDW Plt Count Lymph % (Auto) Lymph # Craig # Seg Neutrophils % Seg Neutrophils # Sodium 155 H Potassium 3.2 L Chloride 115.0 H Carbon Dioxide 19 L BUN 128 H Creatinine 7.6 H Glucose 117 H POC Glucose 112 H Calcium 5.9 L* Magnesium ALT Total Creatine Kinase CK-MB (CK-2) Serum Total Protein Total Protein Albumin PEP Interpretation 25-OH Vitamin D Total PTH Intact 348.9 H Lymph Enumerat CD4/CD8 % CD4 Cells Absolute CD4 Count % CD8 Cells Absolute CD8 Count Crossmatch 12/11/16 12/12/16 12/13/16 13:53 06:40 05:01 WBC RBC Hgb Hct MCV RDW Plt Count Lymph % (Auto) Lymph # Craig # Seg Neutrophils % Seg Neutrophils # Sodium 152 H Potassium 3.4 L Chloride 114.6 H 114.7 H Carbon Dioxide 18 L 16 L BUN 125 H 111 H Creatinine 7.5 H 8.1 H Glucose 140 H POC Glucose Calcium 5.7 L* 6.2 L Magnesium ALT < 5 L Total Creatine Kinase CK-MB (CK-2) Serum Total Protein Total Protein 5.3 L Albumin 2.7 L PEP Interpretation 25-OH Vitamin D Total 17 L PTH Intact Lymph Enumerat CD4/CD8 % CD4 Cells Absolute CD4 Count % CD8 Cells Absolute CD8 Count Crossmatch 12/13/16 12/13/16 12/14/16 10:58 17:36 07:04 WBC RBC Hgb Hct MCV RDW Plt Count Lymph % (Auto) Lymph # Craig # Seg Neutrophils % Seg Neutrophils # Sodium Potassium Chloride 108.1 H Carbon Dioxide 21 L BUN 66 H Creatinine 6.1 H Glucose POC Glucose 149 H Calcium 6.6 L Magnesium ALT Total Creatine Kinase CK-MB (CK-2) Serum Total Protein Total Protein Albumin PEP Interpretation 25-OH Vitamin D Total PTH Intact Lymph Enumerat CD4/CD8 % CD4 Cells Absolute CD4 Count % CD8 Cells Absolute CD8 Count Crossmatch See Detail 12/15/16 12/15/16 12/16/16 06:46 06:46 07:08 WBC 11.5 H 14.8 H RBC 2.61 L 2.58 L Hgb 7.8 L 7.8 L Hct 24.1 L 24.1 L MCV RDW 16.1 H 15.8 H Plt Count 78 L 88 L Lymph % (Auto) Lymph # Craig # 1.0 H Seg Neutrophils % 72.4 H 78.2 H Seg Neutrophils # 8.4 H 11.6 H Sodium Potassium Chloride Carbon Dioxide BUN 32 H Creatinine 4.6 H Glucose POC Glucose Calcium 6.7 L Magnesium ALT Total Creatine Kinase CK-MB (CK-2) Serum Total Protein Total Protein Albumin PEP Interpretation 25-OH Vitamin D Total PTH Intact Lymph Enumerat CD4/CD8 % CD4 Cells Absolute CD4 Count % CD8 Cells Absolute CD8 Count Crossmatch 12/16/16 12/17/16 12/17/16 07:08 07:47 07:47 WBC 11.6 H RBC 2.58 L Hgb 7.9 L Hct 24.7 L MCV 96 H D RDW 16.4 H Plt Count 109 L Lymph % (Auto) Lymph # Craig # Seg Neutrophils % 70.8 H Seg Neutrophils # 8.2 H Sodium 146 H 147 H Potassium Chloride 107.3 H 107.4 H Carbon Dioxide BUN 35 H 23 H Creatinine 5.9 H 4.2 H Glucose POC Glucose Calcium 6.7 L 7.1 L Magnesium ALT Total Creatine Kinase CK-MB (CK-2) Serum Total Protein Total Protein Albumin PEP Interpretation 25-OH Vitamin D Total PTH Intact Lymph Enumerat CD4/CD8 % CD4 Cells Absolute CD4 Count % CD8 Cells Absolute CD8 Count Crossmatch
== END 2016-12-17 18:41 | disposition home health service (06) | DRG 974 ==
LOC: ED 20:17 → CC1 22:31 → 3A 12-10 18:50
PROVIDERS: ADMIT Internal Medicine; ATTEND Internal Medicine
PROC: 02HV33Z Insertion of Infusion Device into Superior Vena Cava, Percutaneous Approach (ICD-10-PCS; 2016-12-08)
PROC: 5A1D60Z (ICD-10-PCS; principal; 2016-12-13)
PROC: 02H633Z Insertion of Infusion Device into Right Atrium, Percutaneous Approach (ICD-10-PCS; 2016-12-13)
PROC: B5131ZA Fluoroscopy of Right Jugular Veins using Low Osmolar Contrast, Guidance (ICD-10-PCS; 2016-12-13)
PROC: 30233N1 Transfusion of Nonautologous Red Blood Cells into Peripheral Vein, Percutaneous Approach (ICD-10-PCS; 2016-12-13)
DX: B20 Human immunodeficiency virus [HIV] disease (principal); A41.9 Sepsis, unspecified organism; N17.0 Acute kidney failure with tubular necrosis; R65.21 Severe sepsis with septic shock; N18.6 End stage renal disease; N39.0 Urinary tract infection, site not specified; E87.1 Hypo-osmolality and hyponatremia; E87.0 Hyperosmolality and hypernatremia; E44.0 Moderate protein-calorie malnutrition; Z68.1 Body mass index [BMI] 19.9 or less, adult; E87.6 Hypokalemia; D63.8 Anemia in other chronic diseases classified elsewhere; E86.0 Dehydration; E87.5 Hyperkalemia; E83.51 Hypocalcemia; T68.XXXA Hypothermia, initial encounter
CPT/HCPCS: 36415; 36558; 51702; 70450; 71010; 74176; 76770; 77001; 80048; 80053; 80074; 81001; 82024; 82140; 82306; 82550; 82553; 82565; 82570; 82962; 83735; 83970; 84165; 84295; 84300; 84443; 84484; 85025; 86021; 86038; 86160; 86225; 86403; 86850; 86900; 86901; 86920; 87040; 87076; 87086; 87186; 93005; 93010; 96365; 96375; C1750; G8978-GP; G8979-GP; J0610; J0690; J0696; J0885; J1644; J1650; J2250; J2405; J2543; J3010; J3475; J7030; J7040; J7050; J7070; P9016

== ENCOUNTER 2017-01-26 19:42 | Emergency (ER) | payer MEDICARE ==
[2017-01-26] MEDS ORDERED: ULTRAM PO ONE (21:12)
--- NOTE | 2017-01-26 21:21 | Emergency Department Report ---
ED Chest Pain HPI - General Chief Complaint: Dyspnea/Respdistress Stated Complaint: SOB Time Seen by Provider: 01/26/17 20:37 Source: patient, old records reviewed (CD4 count 269 in December 2016) Mode of arrival: Ambulatory Limitations: No Limitations - History of Present Illness Initial Comments: Chief complaint: Sharp anterior chest pain with associated shortness of breath HPI: 61-year-old male presents to the hospital with upper anterior sternal chest wall pain. Patient states the pain causes him to feel short of breath. Patient has been compliant with dialysis last session was yesterday (Friday). EMS reports that initial room air sat of 75% and increased to 95% with 5 L nasal cannula. Patient presents here 98% on room air. Mode of arrival: [EMS] Source: [Patient] Began: 3 days Duration: Continuous Context: Patient states pain is related to his recent vas cath placement Quality: Sharp Severity: 5 out of 10 Improved with: No movement Worsened with: Palpation, movement, deep inspiration Associated signs and symptoms: Shortness of breath secondary to pain. Patient denies cough, fever, calf tenderness, edema, orthopnea, PND - Related Data Home Medications Medication Instructions Recorded Confirmed Last Taken Dapsone 50 mg PO QDAY 01/26/17 01/26/17 01/26/17 Folic Acid [Folvite] 1 mg PO QDAY 01/26/17 01/26/17 01/26/17 Hydroxyzine HCl 25 mg PO QHS 01/26/17 01/26/17 01/26/17 Previous Rx's Medication Instructions Recorded Last Taken Type Ritonavir [Norvir] 100 mg PO BID #60 tab 12/16/16 01/26/17 Rx Abacavir [Ziagen TAB] 300 mg PO BID #60 tablet 01/06/17 01/26/17 Rx Darunavir [Prezista] 600 mg PO BID #60 tablet 01/06/17 01/26/17 Rx Nevirapine [Viramune] 200 mg PO BID #30 tablet 01/06/17 01/26/17 Rx traMADol [Ultram 50 MG tab] 50 mg PO Q6HR PRN #20 tablet 01/26/17 Unknown Rx Allergies Allergy/AdvReac Type Severity Reaction Status Date / Time No Known Allergies Allergy Unverified 12/08/16 21:24 Heart Score - HEART Score History: Slightly suspicious EKG: Normal Age: 45-65 Risk factors: 1-2 risk factors Troponin: < normal limit HEART Score: 2 ED Review of Systems ROS: Stated complaint: SOB Other details as noted in HPI Comment: All other systems reviewed and negative Other: Constitutional: No fevers chills Eyes: No eye pain visual changes ENT: No ear pain or throat pain Neck: Denies pain Respiratory: Denies cough wheezing Cardiovascular: Denies palpitations, syncope GI: Denies abdominal pain, nausea, vomiting, diarrhea Musculoskeletal: Denies back pain Skin: Denies rash, lesions, erythema Neurologic: Denies headache, numbness, weakness Psychiatric: Denies suicidal ideation ED Past Medical Hx - Past Medical History Previous Medical History?: Yes Hx Congestive Heart Failure: No Hx Diabetes: No Hx Renal Disease: Yes (dialysis T, , Fri) Hx Psychiatric Treatment: Yes (BIPOLAR, SCHIZOPHRENIA) Hx Asthma: No Hx COPD: No Hx HIV: Yes - Surgical History Past Surgical History?: No - Social History Smoking Status: Never Smoker - Medications Home Medications: Home Medications Medication Instructions Recorded Confirmed Last Taken Type Ritonavir [Norvir] 100 mg PO BID #60 tab 12/16/16 01/26/17 01/26/17 Rx Abacavir [Ziagen TAB] 300 mg PO BID #60 tablet 01/06/17 01/26/17 01/26/17 Rx Darunavir [Prezista] 600 mg PO BID #60 tablet 01/06/17 01/26/17 01/26/17 Rx Nevirapine [Viramune] 200 mg PO BID #30 tablet 01/06/17 01/26/17 01/26/17 Rx Dapsone 50 mg PO QDAY 01/26/17 01/26/17 01/26/17 History Folic Acid [Folvite] 1 mg PO QDAY 01/26/17 01/26/17 01/26/17 History Hydroxyzine HCl 25 mg PO QHS 01/26/17 01/26/17 01/26/17 History traMADol [Ultram 50 MG tab] 50 mg PO Q6HR PRN #20 tablet 01/26/17 Unknown Rx ED Physical Exam - General Limitations: No Limitations - Other Other exam information: General: No limitations, patient is alert in no acute distress Head exam: Atraumatic, normocephalic Eyes exam: Normal appearance ENT: Moist mucous membrane, normal oropharynx Neck exam: Normal inspection, full range of motion, no meningismus nontender Respiratory exam: Clear to auscultation bilateral, no wheezes, rales, crackles. Patient lying supine in bed without any distress. No tachypnea Cardiovascular: Normal rate and rhythm, left upper chest wall Vas-Cath tunneled under the skin. No tenderness or swelling at site. Patient has reproducible tenderness to the top of his sternum Abdomen: Soft, nondistended, and nontender, with normal bowel sounds, no rebound, or guarding Extremity: Full range of motion normal inspection no deformity, no calf tenderness or edema Back: Normal Inspection, full range of motion, no tenderness Neurologic: Alert, oriented x3, cranial nerves intact, no motor or sensory deficit Psychiatric: normal affect, normal mood Skin: Warm, dry, intact ED Course Vital Signs 01/26/17 01/26/17 01/26/17 20:24 20:44 21:30 Temperature 98.9 F Pulse Rate 97 H Respiratory 20 16 18 Rate Blood Pressure 93/47 Blood Pressure [Left] O2 Sat by Pulse 98 100 Oximetry 01/26/17 22:50 Temperature Pulse Rate 98 H Respiratory Rate Blood Pressure Blood Pressure 107/66 [Left] O2 Sat by Pulse 100 Oximetry - Reevaluation(s) Reevaluation #1: 01/26/17 22:47 tramadol given to pt with improvement in pain Reevaluation #2: 01/26/17 22:53 repeat bp 107/66 - ABG Interpretation Ph: 7.43 PCO2: 32 PO2: 94 Bicarbonate: 21.8 Interpretation: normal DAWOOD score - Dawood Score Age > 65: (0) No Aspirin use within the Past 7 Days: (0) No 3 or more CAD Risk Factors: (0) No 2 or more Angina events in past 24 hrs: (0) No Known CAD with more than 50% Stenosis: (0) No Elevated Cardiac Markers: (0) No ST Deviation Greater than 0.5mm: (0) No DAWOOD Score: 0 ED Medical Decision Making - Lab Data Result diagrams: 01/26/17 21:29 01/26/17 21:29 Lab Results 01/26/17 01/26/17 01/26/17 Range/Units 21:28 21:29 21:29 WBC 13.5 H (4.5-11.0) K/mm3 RBC 2.42 L (3.65-5.03) M/mm3 Hgb 7.7 L (11.8-15.2) gm/dl Hct 24.7 L (35.5-45.6) % MCV 102 H (84-94) fl MCH 32 (28-32) pg MCHC 31 L (32-34) % RDW 17.9 H (13.2-15.2) % Plt Count 261 (140-440) K/mm3 Lymph % (Auto) 23.1 (13.4-35.0) % Moore % (Auto) 6.5 (0.0-7.3) % Eos % (Auto) 1.3 (0.0-4.3) % Baso % (Auto) 0.4 (0.0-1.8) % Lymph # 3.1 (1.2-5.4) K/mm3 Moore # 0.9 H (0.0-0.8) K/mm3 Eos # 0.2 (0.0-0.4) K/mm3 Baso # 0.1 (0.0-0.1) K/mm3 Seg Neutrophils % 68.7 (40.0-70.0) % Seg Neutrophils # 9.3 H (1.8-7.7) K/mm3 PT (12.2-14.9) Sec. INR (0.87-1.13) POC ABG pH 7.433 (7.35-7.45) POC ABG pCO2 32.7 L (35-45) POC ABG pO2 94 (80-105) POC ABG HCO3 21.8 POC ABG Total CO2 23 POC ABG O2 Sat 98 POC ABG Base Excess -2 FiO2 21 % Sodium 140 (137-145) mmol/L Potassium 4.2 (3.6-5.0) mmol/L Chloride 101.0 (98-107) mmol/L Carbon Dioxide 22 (22-30) mmol/L Anion Gap 21 mmol/L BUN 42 H (9-20) mg/dL Creatinine 5.0 H (0.8-1.5) mg/dL Estimated GFR 12 ml/min BUN/Creatinine Ratio 8.40 % Glucose 87 (75-100) mg/dL Calcium 7.8 L (8.4-10.2) mg/dL Troponin T < 0.010 (0.00-0.029) ng/mL NT-Pro-B Natriuret Pep (0-900) pg/mL 01/26/17 01/26/17 Range/Units 21:29 21:29 WBC (4.5-11.0) K/mm3 RBC (3.65-5.03) M/mm3 Hgb (11.8-15.2) gm/dl Hct (35.5-45.6) % MCV (84-94) fl MCH (28-32) pg MCHC (32-34) % RDW (13.2-15.2) % Plt Count (140-440) K/mm3 Lymph % (Auto) (13.4-35.0) % Moore % (Auto) (0.0-7.3) % Eos % (Auto) (0.0-4.3) % Baso % (Auto) (0.0-1.8) % Lymph # (1.2-5.4) K/mm3 Moore # (0.0-0.8) K/mm3 Eos # (0.0-0.4) K/mm3 Baso # (0.0-0.1) K/mm3 Seg Neutrophils % (40.0-70.0) % Seg Neutrophils # (1.8-7.7) K/mm3 PT 14.5 (12.2-14.9) Sec. INR 1.07 (0.87-1.13) POC ABG pH (7.35-7.45) POC ABG pCO2 (35-45) POC ABG pO2 (80-105) POC ABG HCO3 POC ABG Total CO2 POC ABG O2 Sat POC ABG Base Excess FiO2 % Sodium (137-145) mmol/L Potassium (3.6-5.0) mmol/L Chloride (98-107) mmol/L Carbon Dioxide (22-30) mmol/L Anion Gap mmol/L BUN (9-20) mg/dL Creatinine (0.8-1.5) mg/dL Estimated GFR ml/min BUN/Creatinine Ratio % Glucose (75-100) mg/dL Calcium (8.4-10.2) mg/dL Troponin T (0.00-0.029) ng/mL NT-Pro-B Natriuret Pep 41.77 (0-900) pg/mL - EKG Data -: EKG Interpreted by Me (nsr 85, prolonged qt) - EKG Data When compared to previous EKG there are: no significant change (compared to ) - Radiology Data Radiology results: report reviewed (chest x-ray: No acute) - Medical Decision Making Patient has no clinical signs of respiratory distress. Normal breath sounds, normal chest x-ray, no signs of hypoxia with normal ABG. Pain is reproducible on palpation to the top portion of the sternum area. We'll treat symptomatically with pain medication. Follow-up with PMD will be encouraged. Pt has chronic anemia similar to previous values - Differential Diagnosis costochondritis, PE, OR, infection, atypical chest pain Critical Care Time: No Critical care attestation.: If time is entered above; I have spent that time in minutes in the direct care of this critically ill patient, excluding procedure time. ED Disposition Clinical Impression: HIV (human immunodeficiency virus infection), Costochondritis, acute, Chronic anemia, End-stage renal disease on hemodialysis Disposition: TO HOME OR SELFCARE Is pt being admited?: No Does the pt Need Aspirin: No Condition: Stable Instructions: Costochondritis (ED), Anemia (ED) Additional Instructions: Take the medication as needed for pain. Follow up with your doctor. Return if symptoms worsen Prescriptions: traMADol [Ultram 50 MG tab] 50 mg PO Q6HR PRN #20 tablet PRN Reason: Pain Referrals: PRIMARY CARE, [Primary Care Provider] - 2-3 Days Time of Disposition: 22:52
[2017-01-26 21:34] LABS: ISTAT Base Excess -2; ISTAT HCO3 21.8; ISTAT PCO2 32.7 (35-45); ISTAT PH 7.433 (7.35-7.45); ISTAT PO2 94 (80-105); ISTAT SO2 98; ISTAT TCO2 23
[2017-01-26 21:59] LABS: Basophils % (Auto) 0.4 % (0.0-1.8); Eosinophils % (Auto) 1.3 % (0.0-4.3); Hematocrit 24.7 % (35.5-45.6); Hemoglobin 7.7 gm/dl (11.8-15.2); Mean Corpuscular HGB Conc 31 % (32-34); Mean Corpuscular Hemoglobin 32 pg (28-32); Mean Corpuscular Volume 102 fl (84-94); Platelet Count 261 K/mm3 (140-440); Red Blood Count 2.42 M/mm3 (3.65-5.03); Red Cell Distribution Width 17.9 % (13.2-15.2); White Blood Count 13.5 K/mm3 (4.5-11.0)
[2017-01-26 22:07] LABS: Anion Gap 21 mmol/L; Blood Urea Nitrogen 42 mg/dL (9-20); Calcium 7.8 mg/dL (8.4-10.2); Carbon Dioxide 22 mmol/L (22-30); Glucose 87 mg/dL (75-100); Potassium 4.2 mmol/L (3.6-5.0); Sodium 140 mmol/L (137-145)
[2017-01-26 22:11] LABS: INR 1.07 (0.87-1.13)
--- NOTE | 2017-01-26 22:34 | XRay Report ---
FINAL REPORT EXAM: XR CHEST 1V AP HISTORY: Shortness of breath TECHNIQUE: AP portable view(s) of the chest obtained. PRIORS: None. FINDINGS: No mediastinal shift. Cardiac silhouette is not enlarged. Left chest central line terminates in the region of the superior cavoatrial junction. No pneumothorax, effusion, or focal pulmonary opacity identified. No acute skeletal findings. IMPRESSION: No acute pulmonary finding identified.
[2017-01-27 12:04] VITALS: BP 102/68
== END 2017-01-27 12:04 | disposition home or self-care (01) ==
LOC: ED 19:42
DX: M94.0 Chondrocostal junction syndrome [Tietze] (principal); D64.9 Anemia, unspecified; N18.6 End stage renal disease; Z99.2 Dependence on renal dialysis; F31.9 Bipolar disorder, unspecified; F20.9 Schizophrenia, unspecified
CPT/HCPCS: 36415; 71010; 80048; 82803; 83880; 84484; 85025; 85610; 93005; 93010; 99284

== ENCOUNTER 2017-01-30 12:05 | Emergency (ER) | payer MEDICARE ==
[2017-01-30 15:07] LABS: Basophils % (Auto) 0.4 % (0.0-1.8); Hematocrit 22.2 % (35.5-45.6); Hemoglobin 7.2 gm/dl (11.8-15.2); Mean Corpuscular HGB Conc 33 % (32-34); Mean Corpuscular Hemoglobin 33 pg (28-32); Mean Corpuscular Volume 100 fl (84-94); Platelet Count 254 K/mm3 (140-440); Red Blood Count 2.22 M/mm3 (3.65-5.03); Red Cell Distribution Width 16.5 % (13.2-15.2); White Blood Count 14.3 K/mm3 (4.5-11.0)
[2017-01-30 15:21] LABS: BUN/Creatinine Ratio 7.77; Calcium 8.2 mg/dL (8.4-10.2); Chloride 102.4 mmol/L (98-107); Potassium 4.5 mmol/L (3.6-5.0)
[2017-01-30] MEDS ORDERED: NORCO 5/325 PO ONE (16:48)
--- NOTE | 2017-01-30 16:55 | Emergency Department Report ---
ED General Adult HPI - General Chief complaint: Pain General Stated complaint: PAIN ALL OVER Time Seen by Provider: 01/30/17 16:13 Source: patient, EMS Mode of arrival: Stretcher Limitations: No Limitations - History of Present Illness Initial comments: 61-year-old male with past medical history of HIV, end-stage renal disease on hemodialysis Friday//Friday, hypertension, presenting to the emergency department complaining of generalized weakness. Patient states he is due to get hemodialysis however they would not dialyze him because his blood pressure was 90 systolic. Patient states he has chronic generalized pain however has no complaints. Pertinent negatives: Fever/chills, headache, chest pain, abdominal pain, nausea/vomiting/diarrhea. -: Gradual Radiation: non-radiation Severity scale (0 -10): 2 Quality: aching Consistency: intermittent Improves with: medication Worsens with: none - Related Data Home Medications Medication Instructions Recorded Confirmed Last Taken RX: Dapsone 50 mg PO QDAY 01/26/17 01/26/17 01/26/17 RX: Folic Acid [Folvite] 1 mg PO QDAY 01/26/17 01/26/17 01/26/17 RX: Hydroxyzine HCl 25 mg PO QHS 01/26/17 01/26/17 01/26/17 Previous Rx's Medication Instructions Recorded Last Taken Type RX: Ritonavir [Norvir] 100 mg PO BID #60 tab 12/16/16 01/26/17 Rx RX: Abacavir [Ziagen TAB] 300 mg PO BID #60 tablet 01/06/17 01/26/17 Rx RX: Darunavir [Prezista] 600 mg PO BID #60 tablet 01/06/17 01/26/17 Rx RX: Nevirapine [Viramune] 200 mg PO BID #30 tablet 01/06/17 01/26/17 Rx RX: traMADol [Ultram 50 MG tab] 50 mg PO Q6HR PRN #20 tablet 01/26/17 Unknown Rx Allergies Allergy/AdvReac Type Severity Reaction Status Date / Time No Known Allergies Allergy Verified 01/30/17 13:45 ED Review of Systems ROS: Stated complaint: PAIN ALL OVER Other details as noted in HPI ED Past Medical Hx - Past Medical History Hx Congestive Heart Failure: No Hx Diabetes: No Hx Renal Disease: Yes (dialysis T, TH, Sat) Hx Psychiatric Treatment: Yes (BIPOLAR, SCHIZOPHRENIA) Hx Asthma: No Hx COPD: No Hx HIV: Yes - Social History Smoking Status: Current Every Day Smoker Substance Use Type: None - Medications Home Medications: Home Medications Medication Instructions Recorded Confirmed Last Taken Type RX: Ritonavir [Norvir] 100 mg PO BID #60 tab 12/16/16 01/26/17 01/26/17 Rx RX: Abacavir [Ziagen TAB] 300 mg PO BID #60 tablet 01/06/17 01/26/17 01/26/17 Rx RX: Darunavir [Prezista] 600 mg PO BID #60 tablet 01/06/17 01/26/17 01/26/17 Rx RX: Nevirapine [Viramune] 200 mg PO BID #30 tablet 01/06/17 01/26/17 01/26/17 Rx RX: Dapsone 50 mg PO QDAY 01/26/17 01/26/17 01/26/17 History RX: Folic Acid [Folvite] 1 mg PO QDAY 01/26/17 01/26/17 01/26/17 History RX: Hydroxyzine HCl 25 mg PO QHS 01/26/17 01/26/17 01/26/17 History RX: traMADol [Ultram 50 MG tab] 50 mg PO Q6HR PRN #20 tablet 01/26/17 Unknown Rx ED Physical Exam - General Limitations: No Limitations ED Course Vital Signs 01/30/17 01/30/17 01/30/17 13:32 13:40 13:45 Temperature 98.1 F Pulse Rate 102 H 92 H 96 H Respiratory 17 25 H 18 Rate Blood Pressure 93/65 93/65 Blood Pressure [Left] O2 Sat by Pulse 96 98 Oximetry 01/30/17 01/30/17 01/30/17 13:50 14:00 14:10 Temperature Pulse Rate 91 H 83 91 H Respiratory 17 12 20 Rate Blood Pressure 93/65 93/65 93/65 Blood Pressure [Left] O2 Sat by Pulse 95 94 96 Oximetry 01/30/17 01/30/17 01/30/17 14:20 14:30 14:40 Temperature Pulse Rate 89 96 H 94 H Respiratory 16 29 H 32 H Rate Blood Pressure 100/65 100/65 108/66 Blood Pressure [Left] O2 Sat by Pulse 96 98 97 Oximetry 01/30/17 01/30/17 01/30/17 14:50 15:00 15:10 Temperature Pulse Rate 98 H 99 H 99 H Respiratory 26 H 15 19 Rate Blood Pressure 92/61 92/61 99/68 Blood Pressure [Left] O2 Sat by Pulse 97 93 96 Oximetry 01/30/17 01/30/17 01/30/17 15:20 15:30 15:40 Temperature Pulse Rate 91 H 90 90 Respiratory 16 21 23 Rate Blood Pressure 92/57 92/57 98/65 Blood Pressure [Left] O2 Sat by Pulse 97 95 96 Oximetry 01/30/17 01/30/17 01/30/17 15:50 16:00 16:10 Temperature Pulse Rate 89 93 H 92 H Respiratory 26 H 26 H 25 H Rate Blood Pressure 103/65 103/65 99/68 Blood Pressure 98/64 [Left] O2 Sat by Pulse 95 95 95 Oximetry 01/30/17 01/30/17 01/30/17 16:20 16:26 16:30 Temperature Pulse Rate 107 H 102 H 100 H Respiratory 21 18 25 H Rate Blood Pressure 107/69 97/66 Blood Pressure 101/70 [Left] O2 Sat by Pulse 93 95 95 Oximetry 01/30/17 01/30/17 01/30/17 16:40 16:50 17:00 Temperature Pulse Rate 94 H 98 H 94 H Respiratory 22 21 22 Rate Blood Pressure 97/66 94/62 96/57 Blood Pressure [Left] O2 Sat by Pulse 95 95 95 Oximetry 01/30/17 01/30/17 01/30/17 17:10 17:20 17:30 Temperature Pulse Rate 98 H 111 H 100 H Respiratory 26 H 20 19 Rate Blood Pressure 96/57 94/62 100/58 Blood Pressure [Left] O2 Sat by Pulse 95 95 95 Oximetry 01/30/17 01/30/17 01/30/17 17:40 17:50 18:00 Temperature Pulse Rate 102 H 103 H 100 H Respiratory 25 H 25 H 22 Rate Blood Pressure 100/58 94/55 98/59 Blood Pressure [Left] O2 Sat by Pulse 97 95 96 Oximetry 01/30/17 01/30/17 18:10 18:20 Temperature Pulse Rate 102 H 100 H Respiratory 24 26 H Rate Blood Pressure 98/59 107/65 Blood Pressure [Left] O2 Sat by Pulse 95 99 Oximetry - Reevaluation(s) Reevaluation #1: 01/30/17 18:24 Patient is comfortable, well-appearing. I have discussed this case and pt EKG( [id number]) with Dr. Godinez cardiology who agrees that patient is stable discharge home and follow-up in cardiology clinic after magnesium dose. The patient's EKG shows no signs of U wave nor, other cardiac abnormalities he is stable to discharge home and follow-up with clinic. ED Medical Decision Making - Lab Data Result diagrams: 01/30/17 14:55 01/30/17 14:55 - EKG Data -: EKG Interpreted by Me EKG shows normal: sinus rhythm (89), axis (normal) Rate: normal - EKG Data Interpretation: no acute changes - Medical Decision Making 61 yo male with past medical history of HIV, end-stage renal disease on hemodialysis Friday//Friday presenting to the emergency department. Due to low blood pressure. At this time there is no acute findings that would explain his blood pressure, I have low suspicion for sepsis or acute GI bleed however his MAP is greater than 65 and is currently 73 and he is asymptomatic and agrees he still discharged home. other than chronic proloned QTC, the patient EKG was negatve for arrhythmias, U waves. I discussed this case with Dr. Godinez who agrees patient stable to follow up with clinic. Pt has no complaints and will follow up outpt Critical Care Time: No Critical care attestation.: If time is entered above; I have spent that time in minutes in the direct care of this critically ill patient, excluding procedure time. ED Disposition Clinical Impression: Hypotension, Prolonged Q-T interval on ECG Disposition: - TO HOME OR SELFCARE Is pt being admited?: No Does the pt Need Aspirin: No Condition: Stable Instructions: How to Take a Blood Pressure (ED), Hypotension (ED), Low Sodium Diet (ED) Referrals: PRIMARY CARE, [Primary Care Provider] - 3-5 Days VENU BROWN MD, PHD [Staff Physician] - 2-3 Days Forms: Work/School Release Form(ED) Time of Disposition: 18:31
[2017-01-30] MEDS ORDERED: MAGNESIUM SULFATE 2GM/50ML 2 GM/50 ML BAG IV ONE (17:23)
[2017-01-30 18:38] VITALS: BP 107/65
== END 2017-01-30 21:27 | disposition home or self-care (01) ==
LOC: ED 12:05
DX: I95.9 Hypotension, unspecified (principal); I45.81 Long QT syndrome; F31.9 Bipolar disorder, unspecified; F20.9 Schizophrenia, unspecified; I12.0 Hypertensive chronic kidney disease with stage 5 chronic kidney disease or end stage renal disease; N18.6 End stage renal disease; F17.200 Nicotine dependence, unspecified, uncomplicated; Z99.2 Dependence on renal dialysis
CPT/HCPCS: 36415; 80048; 85025; 93005; 93010; 96365; 99285; J3475